=== PATIENT | female | born 1965 | race Caucasian/White ===

== ENCOUNTER 2020-04-03 20:51 | Emergency (ER) | payer OTHER, SELFPAY ==
--- NOTE | 2020-04-03 | ECG_ITS ---
Test Reason : PALPITATIONS Blood Pressure : / mmHG Vent. Rate : 087 BPM Atrial Rate : 087 BPM P-R Int : 152 ms QRS Dur : 096 ms QT Int : 400 ms P-R-T Axes : 059 005 046 degrees QTc Int : 481 ms Sinus rhythm with Fusion complexes Prolonged QT Abnormal ECG No previous ECGs available Referred By: Generic ED Physician Electronically Signed By:Anton Dowling
[2020-04-03 21:16] VITALS: BP 160/81; PULSE 88; RESP 18; TEMP 36.7; O2SAT 94
[2020-04-03 21:19] VITALS: BP 160/81; PULSE 88; RESP 20; TEMP 36.7; O2SAT 94; BMI 38.9
[2020-04-03 21:37] LABS: MANUAL DIFF FLAG NO
[2020-04-03 21:38] LABS: Basophils Absolute Auto 0.1 X10*3/uL (0.0-0.2); Basophils Percent Auto 0.5 % (0-2); Eosinophils Absolute Auto 0.1 X10*3/uL (0.0-0.4); Eosinophils Percent Auto 1.1 % (0-4); Hematocrit 44.4 % (37-47); Hemoglobin 14.9 g/dl (12.0-16.0); Imm Gran Abs Auto 0.02 X10*3/uL (0.00-0.03); Imm Gran Pct Auto 0.2 % (0.0-0.4); Lymphocytes Percent Auto 30.5 % (20-40); Mean Corpuscular HGB Conc 33.6 g/dl (31.0-35.0); Mean Corpuscular Volume 89.5 fL (80-98); Mean Platelet Volume 9.7 fL (9.4-12.3); Monocytes Absolute Auto 0.6 X10*3/uL (0.1-1.2); Monocytes Percent Auto 6.2 % (2-11); Neutrophils Absolute Auto 6.1 X10*3/uL (2.0-8.3); Neutrophils Percent Auto 61.5 % (45-73); Platelet Count 360 X10*3/uL (160-400); Red Blood Count 4.96 X10*6/uL (4.20-5.50); Red Cell Distribution Width 13.4 % (11.0-16.0); White Blood Count 9.8 X10*3/uL (4.8-10.8)
[2020-04-03 21:56] LABS: Anion Gap 15 (12-20); Blood Urea Nitrogen 15 mg/dL (9-16); Calcium 9.5 mg/dL (8.4-10.2); Carbon Dioxide 27 mmol/L (22-29); Chloride 100 mmol/L (96-108); Creatinine Clr Calc Pharmacy 77.9; Estimated Glomerular Filt Rate 57; Glucose Random 131 mg/dL (60-115); Sodium 139 mmol/L (135-145)
[2020-04-03 22:04] LABS: Troponin-I High Sensitivity < 3.5 ng/L (<3.5-17.0)
--- NOTE | 2020-04-04 00:09 | ED.ARRPALP ---
HPI - Arrhythmia/Palpitations General Chief Complaint: Arrhythmia/Palpitations Stated Complaint: Diff breathing Time Seen by Provider: 04/04/20 00:09 Source: patient Limitations: no limitations History of Present Illness HPI narrative: Patient with increased stress anxiety secondary to her stepfather about 20 days ago with poor sleep felt palpitation for sleep extra heartbeats patient denied any chest pain or shortness of breath MD complaint: skipped beats Severity: mild Context: occurred during rest Related Data Previous Rx's Medication Instructions Recorded lorazepam [Ativan] 1 mg PO BEDTIME PRN #10 tab 04/04/20 Allergies Allergy/AdvReac Type Severity Reaction Status Date / Time No Known Allergies Allergy Unverified 11/04/19 16:04 zolmitriptan [Zomig] AdvReac Unknown palpitation Verified 03/03/17 00:00 s Review of Systems Review of Systems: Constitutional : No Weight loss, No Fever, No Chills ENT/Mouth : No sore throat, No Rhinorrhea Eyes: No Eye Pain, No Swelling Cardiovascular : No Chest Pain, no palpitations Respiratory : No Cough, No Sputum, no shortness of breath Gastrointestinal : no Nausea, No Vomiting, No Diarrhea, No abdominal Pain, no black stools Genitourinary : No Dysuria, No Urinary Frequency Musculoskeletal : No joint pain, No Myalgias, No Joint Swelling Skin : No Skin Lesions, No rash Neuro : No Weakness, No Numbness, No Dizziness, No Headache Psych :++ Anxiety/Panic, ++ Depression Heme/Lymph: No Bruising, No Lymphadenopathy Endocrine : No Polyuria, No Polydipsia All other systems reviewed and are negative [facility] Past Medical History Medical History Asthma HLD (hyperlipidemia) HTN (hypertension) Surgical History Hx of cholecystectomy Social History Social History Advance Directives: No Physical Exam Vital Signs: Vital Signs: Last Vital Signs Temp 98.0 F 04/03/20 21:19 Pulse 88 04/03/20 21:19 Resp 20 04/03/20 21:19 BP 160/81 H 04/03/20 21:19 Pulse Ox 94 04/03/20 21:19 Body Mass Index 38.9 Appearance: Alert. Oriented X3. No acute distress. Anxious Eyes: Pupils equal, round and reactive to light. ENT: Pharynx normal. Neck: Normal inspection. Neck supple. CVS: Normal heart rate and rhythm. Pulses normal. Respiratory: No respiratory distress. Breath sounds normal. Abdomen: Soft and nontender. Bowel sounds are present, no mass palpable, no CVA tenderness Skin: Skin warm and dry. Normal skin color. Normal skin turgor. Extremities: No lower extremity edema. Neuro: Oriented X 3. No motor deficit. No sensory deficit. 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 Result diagrams: 04/03/20 21:30 04/03/20 21:30 Labs: Lab Results 04/03/20 04/03/20 04/03/20 Range/Units 21:29 21:30 21:30 WBC 9.8 (4.8-10.8) X10*3/uL RBC 4.96 (4.20-5.50) X10*6/uL Hgb 14.9 (12.0-16.0) g/dl Hct 44.4 (37-47) % MCV 89.5 (80-98) fL MCH 30.0 (27.0-33.0) pg MCHC 33.6 (31.0-35.0) g/dl RDW 13.4 (11.0-16.0) % Plt Count 360 (160-400) X10*3/uL MPV 9.7 (9.4-12.3) fL Immature Gran % (Auto) 0.2 (0.0-0.4) % Neut % (Auto) 61.5 (45-73) % Lymph % (Auto) 30.5 (20-40) % [place] % (Auto) 6.2 (2-11) % Eos % (Auto) 1.1 (0-4) % Baso % (Auto) 0.5 (0-2) % Lymph # (Auto) 3.0 (1.2-4.9) X10*3/uL [place] # (Auto) 0.6 (0.1-1.2) X10*3/uL Eos # (Auto) 0.1 (0.0-0.4) X10*3/uL Baso # (Auto) 0.1 (0.0-0.2) X10*3/uL Abs Immat Gran (auto) 0.02 (0.00-0.03) X10*3/uL Absolute Neuts (auto) 6.1 (2.0-8.3) X10*3/uL Absolute Nucleated RBC 0.000 (0.0-0.012) X10*3/uL Nucleated RBC % (auto) 0.0 (0.0-0.2) /100WBC Sodium 139 (135-145) mmol/L Potassium 3.0 L (3.3-5.1) mmol/L Chloride 100 (96-108) mmol/L Carbon Dioxide 27 (22-29) mmol/L Anion Gap 15 (12-20) BUN 15 (9-16) mg/dL Creatinine 1.01 (0.5-1.4) mg/dL Estim Creat Clear Calc 77.9 Estimated GFR 57 Random Glucose 131 H (60-115) mg/dL Calcium 9.5 (8.4-10.2) mg/dL Troponin I High Sens < 3.5 (<3.5-17.0) ng/L ECG Data Attestation: I personally reviewed and interpreted this ECG as follows: Interpretation: Normal sinus rhythm heart rate 87, occasional unifocal PVC normal axis no acute ST T wave changes no acute ischemia Discharge Plan Discharge Clinical Impression: Grief reaction Patient Disposition: Home, Self-Care Instructions: Grief and Loss (ED) Additional Instructions: Rest at home take medication for sleep and anxiety. Follow with PCP if not better your potassium was slightly low, have extra bananas/orange juice Prescriptions: New lorazepam [Ativan] 1 mg tablet 1 mg PO BEDTIME PRN (Reason: anxiety) Qty: 10 RF: 0
[2020-04-04] MEDS: Potassium Bicarbonate/Cit AC 25 MEQ TABLET.EFF PO (00:38)
[2020-04-04] MEDS: LORazepam 1 MG TABLET PO (00:39)
[2020-04-04 00:57] VITALS: PULSE 76
== END 2020-04-04 01:01 | disposition home or self-care (01) ==
PROVIDERS: Emergency Provider Internal Medicine; PCP Internal Medicine
DX: F43.23 Adjustment disorder with mixed anxiety and depressed mood (principal); Z72.89 Other problems related to lifestyle; Z63.4 Disappearance and death of family member; I10 Essential (primary) hypertension
CPT/HCPCS: 36415; 80048; 84484; 85025; 93005; 99283; 99284

== ENCOUNTER 2020-07-06 20:59 | Emergency (ER) | payer OTHER, SELFPAY ==
--- NOTE | ~2020-07-06 | CT_ITS ---
EXAMINATION: CT ABDOMEN AND PELVIS WITHOUT CONTRAST CLINICAL INFORMATION: Right flank pain COMPARISON: 12/28/2008 TECHNIQUE: Multidetector volumetric imaging was performed from the superior aspect of the liver through the pubic symphysis. Sagittal and coronal reformatted images were obtained on the technologist's workstation. This CT examination was performed using dose optimization techniques as appropriate, variously including the following: *Automated exposure control *Adjustment of mA and/or kV according to patient size (this includes techniques or standardized protocols for targeted exams where dose is matched to indication/reason for exam; i.e. extremities or head) *Use of iterative reconstruction technique DLP: 916 mGy-cm FINDINGS: LUNG BASES: The visualized lung bases are unremarkable. LIVER, GALLBLADDER, AND BILIARY TREE: The liver demonstrates hypoattenuation consistent with steatosis. No biliary ductal dilatation is present. Patient is status post cholecystectomy. PANCREAS: There is partial fatty atrophy of the pancreas. SPLEEN: Unremarkable. ADRENAL GLANDS: Unremarkable. KIDNEYS AND URETERS: No hydronephrosis or ureteral calculus bilaterally. There is a left lower pole 5 mm calculus. BLADDER: Unremarkable. GASTROINTESTINAL TRACT: The small and large bowel are unremarkable. The appendix is unremarkable. No free fluid or free air is seen. ABDOMINAL WALL: No significant hernia is appreciated. LYMPH NODES: Normal. VASCULAR: Unremarkable. PELVIC VISCERA: Unremarkable. OSSEOUS STRUCTURES: Degenerative changes are noted in the spine. CT/CT abdomen pelvis wo con IMPRESSION: 1. No acute findings identified in the abdomen/pelvis. Left lower pole renal calculus measuring 5 mm. 2. Hepatic steatosis.
[2020-07-06 21:04] VITALS: BP 150/68; PULSE 85; RESP 18; TEMP 36.3; O2SAT 97; BMI 41.2
[2020-07-07] VITALS: BP 142/72; PULSE 78; RESP 18; O2SAT 99
[2020-07-07 00:06] LABS: MANUAL DIFF FLAG NO
[2020-07-07 00:11] LABS: Basophils Percent Auto 0.3 % (0-2); Eosinophils Absolute Auto 0.1 X10*3/uL (0.0-0.4); Eosinophils Percent Auto 0.9 % (0-4); Hemoglobin 14.5 g/dl (12.0-16.0); Imm Gran Abs Auto 0.01 X10*3/uL (0.00-0.03); Imm Gran Pct Auto 0.1 % (0.0-0.4); Lymphocytes Percent Auto 37.5 % (20-40); Mean Corpuscular HGB Conc 33.7 g/dl (31.0-35.0); Mean Corpuscular Hemoglobin 30.6 pg (27.0-33.0); Mean Corpuscular Volume 90.7 fL (80-98); Mean Platelet Volume 9.7 fL (9.4-12.3); Monocytes Absolute Auto 0.7 X10*3/uL (0.1-1.2); Monocytes Percent Auto 6.4 % (2-11); Neutrophils Absolute Auto 5.9 X10*3/uL (2.0-8.3); Neutrophils Percent Auto 54.8 % (45-73); Platelet Count 341 X10*3/uL (160-400); Red Blood Count 4.74 X10*6/uL (4.20-5.50); Red Cell Distribution Width 13.3 % (11.0-16.0); White Blood Count 10.8 X10*3/uL (4.8-10.8)
--- NOTE | 2020-07-07 00:11 | ED_ITS ---
HPI - General Adult General Chief complaint: General Medical Stated complaint: FLANK PAIN Time Seen by Provider: 07/06/20 23:02 Source: patient Mode of arrival: ambulatory History of Present Illness HPI narrative: This is a 55-year-old female with history of renal colic who presents with 3 weeks of right flank pain with radiation into the anterior abdominal wall without associated fever, chills but reports nausea without vomiting and denies any diarrhea or urinary pain/burning/frequency. Patient sources that she is status post cholecystectomy and has not sought advice from her PCP. Related Data Previous Rx's Medication Instructions Recorded lorazepam [Ativan] 1 mg PO BEDTIME PRN #10 tab 04/04/20 Allergies Allergy/AdvReac Type Severity Reaction Status Date / Time No Known Allergies Allergy Unverified 11/04/19 16:04 zolmitriptan [Zomig] AdvReac Unknown palpitation Verified 03/03/17 00:00 s Review of Systems Review of Systems: Pertinent positives and negatives as stated in HPI 10 point review of systems is otherwise negative. PMFSH Past Medical History Source: nursing notes reviewed Medical History Asthma HLD (hyperlipidemia) HTN (hypertension) Surgical History Hx of cholecystectomy Social History Social History Alcohol intake: never Advance Directives: No Advance Directives Information Provided: Yes Physical Exam Vital Signs: Vital Signs: Last Vital Signs Temp 97.4 F 07/06/20 21:04 Pulse 85 07/06/20 21:04 Resp 18 07/06/20 21:04 BP 150/68 H 07/06/20 21:04 Pulse Ox 97 07/06/20 21:04 Body Mass Index 41.2 VITAL SIGNS: Reviewed. GENERAL: Well developed, well nourished, in no acute distress. HEAD: Normocephalic/atraumatic EYES: PERRLA, EOMI EARS: Ext canals without abnormality NOSE: Nares patent bilateral OROPHARYNX: no oral lesions noted, posterior pharynx clear NECK: Supple, no adenopathy LUNGS: Normal breath sounds. No adventitious sounds or accessory muscle use. SpO2<97> CARDIOVASCULAR: Regular rate and rhythm without noted murmurs ABDOMEN: Soft, mild tenderness over right abdomen without rebound, non-distended with bowel sounds. NEUROLOGIC: Alert and oriented x 4. Course Course Course Narrative: This is a 55-year-old female with history and clinical presentation atypical for renal colic and suspect likely back/musculoskeletal in nature. Will evaluate for possible hernia/right-sided diverticulitis although felt to be less likely. Review of all investigations is negative for any acute findings and all results and findings were discussed with patient at bedside. She was informed that there is a stone within the kidney itself but that this is unlikely to be causing the discomfort that she is experiencing and more likely that this may be an acute on chronic back pain that she is experiencing. She was encouraged to follow up with her primary care provider for further discussion. Medical Decision Making Lab Data Result diagrams: 07/06/20 23:59 07/06/20 23:59 Labs: Lab Results 07/06/20 07/06/20 07/07/20 Range/Units 23:59 23:59 00:00 WBC 10.8 (4.8-10.8) X10*3/uL RBC 4.74 (4.20-5.50) X10*6/uL Hgb 14.5 (12.0-16.0) g/dl Hct 43.0 (37-47) % MCV 90.7 (80-98) fL MCH 30.6 (27.0-33.0) pg MCHC 33.7 (31.0-35.0) g/dl RDW 13.3 (11.0-16.0) % Plt Count 341 (160-400) X10*3/uL MPV 9.7 (9.4-12.3) fL Immature Gran % (Auto) 0.1 (0.0-0.4) % Neut % (Auto) 54.8 (45-73) % Lymph % (Auto) 37.5 (20-40) % [place] % (Auto) 6.4 (2-11) % Eos % (Auto) 0.9 (0-4) % Baso % (Auto) 0.3 (0-2) % Lymph # (Auto) 4.0 (1.2-4.9) X10*3/uL [place] # (Auto) 0.7 (0.1-1.2) X10*3/uL Eos # (Auto) 0.1 (0.0-0.4) X10*3/uL Baso # (Auto) 0.0 (0.0-0.2) X10*3/uL Abs Immat Gran (auto) 0.01 (0.00-0.03) X10*3/uL Absolute Neuts (auto) 5.9 (2.0-8.3) X10*3/uL Absolute Nucleated RBC 0.000 (0.0-0.012) X10*3/uL Nucleated RBC % (auto) 0.0 (0.0-0.2) /100WBC Sodium 138 (135-145) mmol/L Potassium 3.0 L (3.3-5.1) mmol/L Chloride 98 (96-108) mmol/L Carbon Dioxide 26 (22-29) mmol/L Anion Gap 17 (12-20) BUN 16 (9-16) mg/dL Creatinine 0.99 (0.5-1.4) mg/dL Estim Creat Clear Calc 78.4 Estimated GFR 58 Random Glucose 134 H (60-115) mg/dL Calcium 9.7 (8.4-10.2) mg/dL Total Bilirubin 0.8 (0.0-1.0) mg/dL AST 39 H (5-31) U/L ALT 54 H (0-31) U/L Alkaline Phosphatase 94 (39-117) U/L Total Protein 7.6 (6.5-8.0) g/dL Albumin 4.4 (3.5-5.0) g/dL Urine Color YELLOW Urine Appearance CLEAR Urine pH 6.0 (5.0-8.0) Ur Specific [place] 1.010 (1.005-1.025) Urine Protein NEG (NEG-TRACE) MG/DL Urine Glucose (UA) NEG (NEG) MG/DL Urine Ketones NEG (NEG) MG/DL Urine Blood NEG (NEG) Urine Nitrite NEG (NEG) Ur Leukocyte Esterase NEG (NEG) Discharge Plan Discharge Clinical Impression: Hypokalemia, Back pain Patient Disposition: Home, Self-Care Instructions: Back Pain (ED), Lower Back Exercises (ED), Hypokalemia (ED) Additional Instructions: 1. Tylenol 1000 mg, orally, every 6 hours as needed for pain control. Do not exceed 4000 mg within 24 hours. 2. Lidocaine patch, these are available [id number] at every [facility], apply to area of maximal pain as directed on the outside packaging. 3. Please follow-up with your primary care provider in the next 2-3 days for re- evaluation. Return to the ER for any acute worsening of symptoms. Prescriptions: No Action lorazepam [Ativan] 1 mg tablet 1 mg PO BEDTIME PRN (Reason: anxiety) Qty: 10 RF: 0 Referrals: Leela Abraham MD [Primary Care Provider] - 2 days (Re-evaluation after seen in the ER for right flank pain, workup was negative but there was a noted stone within the right kidney.)
[2020-07-07 00:35] LABS: Alanine Aminotransferase 54 U/L (0-31); Albumin Level 4.4 g/dL (3.5-5.0); Alkaline Phosphatase 94 U/L (39-117); Anion Gap 17 (12-20); Aspartate Amino Transferase 39 U/L (5-31); Bilirubin Total 0.8 mg/dL (0.0-1.0); Blood Urea Nitrogen 16 mg/dL (9-16); Calcium 9.7 mg/dL (8.4-10.2); Carbon Dioxide 26 mmol/L (22-29); Chloride 98 mmol/L (96-108); Creatinine Clr Calc Pharmacy 78.4; Estimated Glomerular Filt Rate 58; Glucose Random 134 mg/dL (60-115); Sodium 138 mmol/L (135-145); Total Protein 7.6 g/dL (6.5-8.0)
[2020-07-07] MEDS: Potassium Chloride ER 20 MEQ TAB.ER.PRT 60 MEQ PO (01:37)
--- NOTE | 2020-07-07 01:50 | PC.NURSE ---
Called lab regarding urine specimen that was sent earlier this shift. Urine specimen order was not amended prior to sending. This RN amended order in system, urine specimen now being processed by lab. Dr.Brazille lara.
[2020-07-07 02:00] VITALS: BP 137/82; PULSE 82; RESP 18; TEMP 36.6; O2SAT 98
[2020-07-07 02:15] LABS: Glucose Urine UA NEG (NEG); Leukocyte Esterase Urine NEG (NEG); Nitrite Urine NEG (NEG); Urine Blood NEG (NEG); Urine Ketones NEG (NEG); Urine Protein NEG (NEG-TRACE)
[2020-07-07 02:19] LABS: Appearance Urine CLEAR; Color Urine YELLOW
== END 2020-07-07 03:28 | disposition home or self-care (01) ==
PROVIDERS: Emergency Provider Student in an Organized Health Care Education/Training Program; PCP Internal Medicine
DX: E87.6 Hypokalemia (principal); M54.5 Low back pain; N20.0 Calculus of kidney; I10 Essential (primary) hypertension; E78.5 Hyperlipidemia, unspecified; Z90.49 Acquired absence of other specified parts of digestive tract
CPT/HCPCS: 36415; 74176; 80053; 81003; 85025; 99284

== ENCOUNTER → 2022-02-15 09:54 | Outpatient (BNVA) | payer OTHER, SELFPAY | PROVIDERS: Visit Provider Nurse Practitioner Family | DX: R53.1 Weakness (principal) ==

== ENCOUNTER → 2022-05-16 09:28 | Outpatient (BNVA) | payer OTHER, SELFPAY | PROVIDERS: Visit Provider Nurse Practitioner Family | DX: Z13.89 Encounter for screening for other disorder (principal) ==

== ENCOUNTER → 2022-08-01 09:29 | Outpatient (BNVA) | payer OTHER, SELFPAY | PROVIDERS: Visit Provider Psychiatry & Neurology Neurology ==

== ENCOUNTER 2022-08-08 10:22 | Outpatient (REF) | payer OTHER, SELFPAY ==
--- NOTE | 2022-08-08 10:25 | EMG_ITS ---
FINDINGS: Left tibial and peroneal motor and sensory studies were performed. Left superficial peroneal and sural sensory studies were performed. Tibial H-reflex was obtained and paraspinal muscles were tested with a needle. 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 MD SARI Salamanca/LAZARO / [id number]
== END 2022-08-08 10:23 | disposition home or self-care (01) ==
LOC: HO.NEURO 10:22
PROVIDERS: Visit Provider Psychiatry & Neurology Neurology
DX: R20.0 Anesthesia of skin (principal); R20.2 Paresthesia of skin; R53.1 Weakness
CPT/HCPCS: 95886; 95909

== ENCOUNTER 2022-08-11 17:56 | Emergency (ER) | payer OTHER, SELFPAY ==
--- NOTE | ~2022-08-11 | US_ITS ---
EXAMINATION: US VENOUS ULTRASOUND WITH DOPPLER LOWER EXTREMITY, RIGHT CLINICAL INFORMATION: Right lower extremity pain COMPARISON: None available. TECHNIQUE: Ultrasound of the deep veins is performed from the hip to the calf with compression sonography and color and pulse Doppler assessment. Spectral analysis with color-flow imaging is performed. FINDINGS: There is normal venous compression and respiratory variation and augmented flow. The visualized common femoral vein, superficial femoral vein, profunda femoral vein, popliteal vein, and the trifurcation region shows no evidence of deep venous thrombosis. There is no significant popliteal fossa cyst. The left common femoral vein appears normal. If the patient's symptoms persist, followup ultrasound in 5 days 7 days might be of value to exclude proximal propagation from a non-visualized calf vein. US/US venous duplex LE RT IMPRESSION: No DVT demonstrated in the right lower extremity.
[2022-08-11 18:52] VITALS: BP 175/75; PULSE 82; RESP 16; TEMP 36.7; O2SAT 95; BMI 38.7
[2022-08-11 19:15] LABS: Hematocrit 41.4 % (37.0-47.0); Hemoglobin 13.7 g/dl (12.0-16.0); Mean Corpuscular HGB Conc 33.1 g/dl (31.0-35.0); Mean Corpuscular Hemoglobin 31.1 pg (27.0-33.0); Mean Corpuscular Volume 93.9 fL (80.0-98.0); Mean Platelet Volume 9.8 fL (9.4-12.3); Platelet Count 328 X10*3/uL (160-400); Red Blood Count 4.41 X10*6/uL (4.20-5.50); Red Cell Distribution Width 13.1 % (11.0-16.0); White Blood Count 11.2 X10*3/uL (4.8-10.8)
[2022-08-11 19:16] LABS: Appearance Urine Clear; Color Urine Yellow; Glucose Urine UA Negative (Negative); Leukocyte Esterase Urine Negative (Negative); Nitrite Urine Negative (Negative); PH >= 9.0 (5.0-9.0); Urine Blood Negative (Negative); Urine Ketones Negative (Negative); Urine Protein Negative (Neg-Trace)
[2022-08-11 19:41] LABS: Alanine Aminotransferase 39 U/L (0-31); Albumin Level 4.1 g/dL (3.5-5.0); Alkaline Phosphatase 99 U/L (39-117); Anion Gap 15 (12-20); Aspartate Amino Transferase 26 U/L (5-31); Bilirubin Total 0.5 mg/dL (0.0-1.0); Blood Urea Nitrogen 11 mg/dL (9-16); Calcium 10.1 mg/dL (8.4-10.2); Carbon Dioxide 21 mmol/L (22-29); Chloride 109 mmol/L (96-108); Estimated Glomerular Filt Rate > 60; Glucose Random 110 mg/dL (60-115); Potassium 3.7 mmol/L (3.3-5.1); Sodium 141 mmol/L (135-145); Total Protein 7.6 g/dL (6.5-8.0)
[2022-08-11 19:45] LABS: B Type Natriuretic Peptide 37 pg/mL (<100)
[2022-08-11 21:27] VITALS: BP 140/72; PULSE 71; RESP 17; TEMP 36.6; O2SAT 92
--- NOTE | 2022-08-11 22:47 | ED_ITS ---
HPI - Extremity Problem General Chief complaint: Extremity Problem Stated complaint: Feet swollen Time Seen by Provider: 08/11/22 21:25 History of Present Illness HPI Narrative: Patient is a 57-year-old female presents today with having bilateral leg swelling worse on the right side. Symptoms been ongoing for 2 days. Denies any chest pain. Denies any diaphoresis. Patient is from home. No fever no chills. No coughing no congestion or upper respiratory symptoms. No diaphoresis. No history of being on control pills. No hormone replacement. No travel history. No trauma to leg. Ambulates with normal gait. Pain is worse over the right calf area. No chest pain or shortness of breath no diaphoresis Related Data Home Medications Medication Instructions Recorded Confirmed albuterol sulfate 90 mcg/actuation 2 puff inhalation QID PRN cough 02/15/22 08/01/22 aerosol inhaler bupropion HCl 300 mg 24 hr tablet, 300 mg PO QAM 02/15/22 08/01/22 extended release cholecalciferol (vitamin D3) 100 100 mcg PO DAILY 02/15/22 08/01/22 mcg (4,000 unit) capsule cranberry 400 mg capsule 400 mg PO DAILY 02/15/22 08/01/22 lorazepam 0.5 mg tablet 0.5 mg PO DAILY PRN 02/15/22 08/01/22 losartan 50 mg tablet 50 mg PO DAILY 02/15/22 08/01/22 magnesium oxide 500 mg capsule 500 mg PO DAILY 02/15/22 08/01/22 potassium chloride 10 mEq 20 meq PO BEDTIME 02/15/22 08/01/22 tablet,extended release(part/cryst) (Klor-Con M) potassium chloride 20 mEq 20 meq PO DAILY 02/15/22 08/01/22 tablet,extended release pravastatin 20 mg tablet 20 mg PO DAILY 02/15/22 08/01/22 riboflavin (vitamin B2) 400 mg 400 mg PO DAILY 02/15/22 08/01/22 tablet triamcinolone acetonide 0.025 % appl topical BID 02/15/22 08/01/22 topical cream Previous Rx's Medication Instructions Recorded lorazepam 1 mg tablet (Ativan) 1 mg PO BEDTIME PRN anxiety #10 04/04/20 tabs erenumab-aooe 140 mg/mL 140 mg subcut .monthly 30 days #1 02/15/22 subcutaneous auto-injector mL (Aimovig Autoinjector) verapamil 120 mg 24 hr 120 mg PO DAILY #90 caps 05/07/22 capsule,extended release qorstxksdo-rmrirexbavaaf-kfgfncjg 1 cap PO Q4-6H PRN pain 30 days 05/16/22 50 mg-300 mg-40 mg capsule #20 caps (Fioricet) acetazolamide 125 mg tablet 125 mg PO TID 30 days #90 tabs 05/20/22 Allergies Allergy/AdvReac Type Severity Reaction Status Date / Time house dust mite Allergy Mild Sneezing Verified 08/11/22 18:52 zolmitriptan [Zomig] AdvReac Unknown palpitation Verified 08/11/22 18:52 s Review of Systems Review of Systems: no fever no chills Yes all other systems are reviewed and are negative [facility] Past Medical History Attestation statement: The following information was validated with the patient. Medical History Asthma HLD (hyperlipidemia) HTN (hypertension) Numbness and tingling of both feet Surgical History Hx of cholecystectomy Family History Family History Brother Hypokalemia Social History Social History Alcohol intake: never Patient Tobacco Use Status: Never used Tobacco Smoked in Last 30 Days: No Use of substances other than those prescribed or required for medical reasons: No Advance Directives: No Advance Directives Information Provided: No Physical Exam Vital Signs: Vital Signs: Last Vital Signs Temp 98.4 F 08/11/22 22:58 Pulse 68 08/11/22 22:58 Resp 18 08/11/22 22:58 BP 122/55 L 08/11/22 22:58 Pulse Ox 99 08/11/22 22:58 O2 Del Method Room Air 08/11/22 22:58 BMI result Body Mass Index 38.7 Appearance: Alert. Oriented X3. No acute distress. Eyes: Pupils equal, round and reactive to light. ENT: Pharynx normal. Neck: Normal inspection. Neck supple. No lymph nodes noted. No crepitus CVS: Normal heart rate and rhythm. Pulses normal. Normal S1 and S2 Respiratory: No respiratory distress. Breath sounds normal. No Wheezing. No rales Abdomen: Soft and nontender. No rigidity. No distention. good BS x4 Skin: Skin warm and dry. Normal skin color. Normal skin turgor. Extremities: No lower extremity edema. Neurovascular intact to all extremities. No Lacerations. No Rash Neuro: Oriented X 3. No motor deficit. No sensory deficit. Moving all extermities. No slurred speech Medical Decision Making Medical Decision Making [facility] Narrative: Patient is 57 years old complaining of leg swelling. Doppler of the lower extremity in the right side was negative for any acute evidence of DVT. Patient's BMP is normal. No evidence for congestive heart failure. Patient's liver profile was normal no evidence for liver failure will have patient follow- up on an outpatient basis. Elevate as much as possible. In stable condition. Differential Diagnosis DVT, pedal edema, congestive heart failure, liver disease Lab Data [facility] Lab Attestation statement: I reviewed the patient's lab results. 08/11/22 19:09 08/11/22 19:09 Labs: Lab Results 08/11/22 08/11/22 08/11/22 Range/Units 19:09 19:09 19:09 WBC 11.2 H (4.8-10.8) X10*3/uL RBC 4.41 (4.20-5.50) X10*6/uL Hgb 13.7 (12.0-16.0) g/dl Hct 41.4 (37.0-47.0) % MCV 93.9 (80.0-98.0) fL MCH 31.1 (27.0-33.0) pg MCHC 33.1 (31.0-35.0) g/dl RDW 13.1 (11.0-16.0) % Plt Count 328 (160-400) X10*3/uL MPV 9.8 (9.4-12.3) fL Absolute Nucleated RBC 0.000 (0.0-0.012) X10*3/uL Nucleated RBC % (auto) 0.0 (0.0-0.2) /100WBC Sodium 141 (135-145) mmol/L Potassium 3.7 D (3.3-5.1) mmol/L Chloride 109 H (96-108) mmol/L Carbon Dioxide 21 L (22-29) mmol/L Anion Gap 15 (12-20) BUN 11 (9-16) mg/dL Creatinine 0.86 (0.5-1.4) mg/dL Estim Creat Clear Calc 88.0 Estimated GFR > 60 Random Glucose 110 (60-115) mg/dL Calcium 10.1 (8.4-10.2) mg/dL Total Bilirubin 0.5 (0.0-1.0) mg/dL AST 26 (5-31) U/L ALT 39 H (0-31) U/L Alkaline Phosphatase 99 (39-117) U/L B-Natriuretic Peptide 37 (<100) pg/mL Total Protein 7.6 (6.5-8.0) g/dL Albumin 4.1 (3.5-5.0) g/dL Urine Color Urine Appearance Urine pH (5.0-9.0) Ur Specific [place] (1.005-1.025) Urine Protein (Neg-Trace) mg/dL Urine Glucose (UA) (Negative) mg/dL Urine Ketones (Negative) mg/dL Urine Blood (Negative) Urine Nitrite (Negative) Ur Leukocyte Esterase (Negative) 08/11/22 Range/Units 19:09 WBC (4.8-10.8) X10*3/uL RBC (4.20-5.50) X10*6/uL Hgb (12.0-16.0) g/dl Hct (37.0-47.0) % MCV (80.0-98.0) fL MCH (27.0-33.0) pg MCHC (31.0-35.0) g/dl RDW (11.0-16.0) % Plt Count (160-400) X10*3/uL MPV (9.4-12.3) fL Absolute Nucleated RBC (0.0-0.012) X10*3/uL Nucleated RBC % (auto) (0.0-0.2) /100WBC Sodium (135-145) mmol/L Potassium (3.3-5.1) mmol/L Chloride (96-108) mmol/L Carbon Dioxide (22-29) mmol/L Anion Gap (12-20) BUN (9-16) mg/dL Creatinine (0.5-1.4) mg/dL Estim Creat Clear Calc Estimated GFR Random Glucose (60-115) mg/dL Calcium (8.4-10.2) mg/dL Total Bilirubin (0.0-1.0) mg/dL AST (5-31) U/L ALT (0-31) U/L Alkaline Phosphatase (39-117) U/L B-Natriuretic Peptide (<100) pg/mL Total Protein (6.5-8.0) g/dL Albumin (3.5-5.0) g/dL Urine Color Yellow Urine Appearance Clear Urine pH >= 9.0 (5.0-9.0) Ur Specific [place] 1.010 (1.005-1.025) Urine Protein Negative (Neg-Trace) mg/dL Urine Glucose (UA) Negative (Negative) mg/dL Urine Ketones Negative (Negative) mg/dL Urine Blood Negative (Negative) Urine Nitrite Negative (Negative) Ur Leukocyte Esterase Negative (Negative) Radiology Impression Discussion of test interpretation with radiology: I have reviewed the radiologist's reading. Discharge Plan Discharge Clinical Impression: Pedal edema Patient Disposition: Home, Self-Care Instructions: Leg Edema (ED) Prescriptions: No Action verapamil 120 mg capsule,ext rel. pellets 24 hr 120 mg PO DAILY Qty: 90 3RF acetazolamide 125 mg tablet 125 mg PO TID 30 Days Qty: 90 3RF lorazepam [Ativan] 1 mg tablet 1 mg PO BEDTIME PRN (Reason: anxiety) Qty: 10 0RF ooaovjuxhz-oavpkcouhjypb-vgdn [Fioricet] 50-300-40 mg capsule 1 cap PO Q4-6H PRN (Reason: pain) 30 Days Qty: 20 3RF Rx Instructions: max 4 caps per day or 8 caps per week albuterol sulfate 90 mcg/actuation HFA aerosol inhaler 2 puff inhalation QID PRN (Reason: cough) potassium chloride 20 mEq tablet extended release 20 meq PO DAILY potassium chloride [Klor-Con M10] 10 mEq tablet,ER particles/crystals 20 meq PO BEDTIME losartan 50 mg tablet 50 mg PO DAILY bupropion HCl 300 mg tablet extended release 24 hr 300 mg PO QAM pravastatin 20 mg tablet 20 mg PO DAILY lorazepam 0.5 mg tablet 0.5 mg PO DAILY PRN triamcinolone acetonide 0.025 % cream topical BID riboflavin (vitamin B2) 400 mg tablet 400 mg PO DAILY magnesium oxide 500 mg capsule 500 mg PO DAILY cranberry 400 mg capsule 400 mg PO DAILY Rx Instructions: administer with a meal cholecalciferol (vitamin D3) 100 mcg (4,000 unit) capsule 100 mcg PO DAILY Aimovig Autoinjector 140 mg/mL auto-injector 140 mg subcut .monthly 30 Days Qty: 1 12RF Referrals: Liyah Dalton MD [Primary Care Provider] - 08/13/22
[2022-08-11 22:58] VITALS: BP 122/55; PULSE 68; RESP 18; TEMP 36.9; O2SAT 99
--- NOTE | 2022-08-11 23:59 | PC.NURSE ---
stable and clear to go home patient vitals are stable at this time patient will receive all paperwork
== END 2022-08-12 00:05 | disposition home or self-care (01) ==
PROVIDERS: Emergency Provider Emergency Medicine Emergency Medical Services; PCP Internal Medicine
DX: R60.0 Localized edema (principal); R06.02 Shortness of breath; Z79.899 Other long term (current) drug therapy
CPT/HCPCS: 36415; 80053; 81003; 83880; 85027; 93971; 99284

== ENCOUNTER 2022-09-07 08:34 | Outpatient (REF) | payer OTHER, SELFPAY ==
[2022-09-07 09:13] LABS: MANUAL DIFF FLAG NO
[2022-09-07 09:19] LABS: Basophils Absolute Auto 0.1 X10*3/uL (0.0-0.2); Basophils Percent Auto 0.5 % (0-2); Eosinophils Absolute Auto 0.2 X10*3/uL (0.0-0.4); Hematocrit 40.5 % (37.0-47.0); Hemoglobin 13.1 g/dl (12.0-16.0); Imm Gran Abs Auto 0.03 X10*3/uL (0.00-0.03); Imm Gran Pct Auto 0.3 % (0.0-0.4); Lymphocytes Absolute Auto 2.9 X10*3/uL (1.2-4.9); Lymphocytes Percent Auto 30.9 % (20-40); Mean Corpuscular HGB Conc 32.3 g/dl (31.0-35.0); Mean Corpuscular Hemoglobin 30.7 pg (27.0-33.0); Mean Corpuscular Volume 94.8 fL (80.0-98.0); Monocytes Absolute Auto 0.5 X10*3/uL (0.1-1.2); Monocytes Percent Auto 5.1 % (2-11); Neutrophils Absolute Auto 5.8 x10*3/uL (2.0-8.3); Neutrophils Percent Auto 61.2 % (45-73); Platelet Count 320 X10*3/uL (160-400); Red Blood Count 4.27 X10*6/uL (4.20-5.50); Red Cell Distribution Width 13.2 % (11.0-16.0); White Blood Count 9.4 X10*3/uL (4.8-10.8)
[2022-09-07 09:56] LABS: Erythrocyte Sedimentation Rate 21 MM/HR (0-20)
[2022-09-07 10:30] LABS: Alanine Aminotransferase 45 U/L (0-31); Alkaline Phosphatase 97 U/L (39-117); Anion Gap 12 (12-20); Aspartate Amino Transferase 22 U/L (5-31); Bilirubin Total 0.3 mg/dL (0.0-1.0); Blood Urea Nitrogen 17 mg/dL (9-16); Calcium 9.5 mg/dL (8.4-10.2); Carbon Dioxide 22 mmol/L (22-29); Chloride 112 mmol/L (96-108); Estimated Glomerular Filt Rate > 60; Glucose Random 149 mg/dL (60-115); Potassium 4.1 mmol/L (3.3-5.1); Sodium 142 mmol/L (135-145); Total Protein 7.2 g/dL (6.5-8.0)
[2022-09-07 10:46] LABS: TSH reflex Free T4 1.94 uIU/mL (0.32-4.0)
[2022-09-07 10:58] LABS: Folate 8.4 ng/mL (> or = 4.0); Vitamin B12 426 pg/mL (200-900)
[2022-09-10 05:48] LABS: Lyme Abs Screen <0.90 index
[2022-09-10 16:37] LABS: Homocysteine 11.9 umol/L (<10.4)
[2022-09-11 13:23] LABS: Methylmalonic Acid 133 nmol/L (87-318)
[2022-09-11 15:03] LABS: Prot Elec - Albumin 3.8 g/dL (3.8-4.8); Prot Elec - Alpha1 0.3 g/dL (0.2-0.3); Prot Elec - Alpha2 0.8 g/dL (0.5-0.9); Prot Elec - Beta 1 0.6 g/dL (0.4-0.6); Prot Elec - Beta 2 0.6 g/dL (0.2-0.5); Prot Elec - Total Protein 7.1 g/dL (6.1-8.1)
[2022-09-12 12:48] LABS: Vitamin D 25-OH, D2 <4 ng/mL; Vitamin D 25-OH, D3 38 ng/mL; Vitamin D 25-OH, Total 38 ng/mL (30-100)
[2022-09-13 14:54] LABS: Anti Nuclear Antibody Screen NEGATIVE (NEGATIVE)
[2022-09-13 17:48] LABS: Vitamin B6 6.1 ng/mL (2.1-21.7)
== END 2022-09-07 08:35 | disposition home or self-care (01) ==
LOC: HO.LAB 08:34
PROVIDERS: Visit Provider Psychiatry & Neurology Neurology
DX: G62.9 Polyneuropathy, unspecified (principal)
CPT/HCPCS: 36415; 80053; 82306; 82607; 82746; 83090; 83921; 84165; 84181; 84207; 84443; 85025; 85652; 86038; 86617; 86618

== ENCOUNTER 2022-12-30 13:12 | Outpatient (AMB) | payer OTHER, SELFPAY ==
[2022-12-30 13:15] VITALS: BP 130/68; PULSE 67; O2SAT 97
--- NOTE | 2022-12-30 13:15 | HO.NEPHOV_ITS ---
HPI HPI Comments History of Present Illness Details Luba is a middle-aged woman with history of chronic hypokalemia. She is on potassium supplementation. She has monitoring of potassium at home. She She has periods of weakness. She underwent EMG which shows sensory neuropathy. She is waiting for Neurology evaluation. She underwent genetic studies which was not suggestive of periodic paralysis In August 2022 she developed bilateral leg edema. She was in the emergency room. No evidence of DVT. Cardiac hepatic and renal function were normal. The swelling subsided without any intervention/diuretics. [facility] Medical History (Updated 09/02/22 @ 13:57 by Arlin Walker MD) Neuropathy Numbness and tingling of both feet Asthma HLD (hyperlipidemia) HTN (hypertension) Surgical History Hx of cholecystectomy Family History Brother Hypokalemia Social History Alcohol intake: never Patient Tobacco Use Status: Never used Tobacco Vital Signs 12/30/22 13:15 Height 5 ft 6 in BP 130/68 Blood Pressure Location Lt brachial Position Sitting Pulse 67 Pulse Source Pulse Oximeter Pulse Oximetry (%) 97 Physical Exam Vital Signs: Last Vital Signs Pulse 67 12/30/22 13:15 BP 130/68 12/30/22 13:15 Pulse Ox 97 12/30/22 13:15 Const General: comfortable Nutritional Appearance: well nourished Orientation/consciousness: patient oriented x3 HEENT Head: No normal to inspection Mouth: moist mucous membranes Neck Neck: Yes supple and Yes no JVD Resp Auscultation: clear to auscultation bilaterally, no rales and rub present Cardio Jugular venous distension: no JVD Palpation: no palpable S3 and no palpable S4 Heart sounds: no rubs GI Palpation (GI): Soft to palpation and nontender Percussion: No Fluid wave present General: Yes no CVA tenderness Back/Spine/Pelvis Back: no CVA tenderness Skin General skin exam: no rashes or lesions noted Neuro General: patient oriented x3 Extrem General: Yes no pedal edema and No clubbing Results Reviewed Results Reviewed: All results reviewed Assessment & Plan Assessment & Plan (1) Hypokalemia: Comment: ? hypokalemia periodic paralysis Code(s): E87.6 - Hypokalemia Plan Middle-aged woman with chronic hypokalemia requiring supplementation. She has clinical features suggestive of hypokalemic periodic paralysis. Genetic studies did not support this. Goal is to maintain potassium more than 4 millimoles. Continue current Moe supplementation monitor periodically. Neuropathy Follow-up with Neurology Orders: Orders Calcium Today E87.6 - Hypokalemia, G62.9 - Polyneuropathy, unspecified Electrolytes Today E87.6 - Hypokalemia, G62.9 - Polyneuropathy, unspecified Blood Urea Nitrogen Today E87.6 - Hypokalemia, G62.9 - Polyneuropathy, unspecified Creatinine Today E87.6 - Hypokalemia, G62.9 - Polyneuropathy, unspecified Coding Level of Care Code Est Pt Level 4 (31712) Diagnoses Hypokalemia E87.6
== END 2022-12-30 13:39 | disposition home or self-care (01) ==
PROVIDERS: PCP Internal Medicine; Visit Provider Internal Medicine Hypertension Specialist
DX: E87.6 Hypokalemia (principal)
CPT/HCPCS: 99214

== ENCOUNTER → 2022-12-30 13:12 | Outpatient (BNVA) | payer OTHER, SELFPAY | PROVIDERS: PCP Internal Medicine; Visit Provider Internal Medicine Hypertension Specialist ==

== ENCOUNTER 2023-01-17 14:55 | Outpatient (AMB) | payer OTHER, SELFPAY ==
[2023-01-17 14:57] VITALS: BP 130/82; PULSE 80; O2SAT 97; BMI 35.8
--- NOTE | 2023-01-17 14:57 | MHC.OFFVIS ---
Intake Vital Signs 01/17/23 14:57 Height 5 ft 6 in Weight 222 lb BMI 35.8 BP 130/82 Blood Pressure Location Lt brachial Position Sitting Pulse 80 Pulse Source Pulse Oximeter Pulse Oximetry (%) 97 Oxygen Delivery Method Room Air Intake Visit Reasons: follow up/ Confirmed Intake Note: Pt presents to the office today for a follow up for migraines. Pt states her migraines have been doing better. Allergies house dust mite Allergy (Mild, Verified 01/17/23 14:59) Sneezing zolmitriptan [Zomig] Adverse Reaction (Unknown, Verified 01/17/23 14:59) palpitations HPI HPI Comments History of Present Illness Details 57-yr-old female presents for f/u visit for bilateral legs neuropathy, headache and sleep apnea. Today is her Aimovig injection due day. Pt reports she might have moderate headache once a week, it is much less intense, duration is also short. Resting in the darkroom and using fioricet helps to relieve the headache. She is on Diamox 125 BID. Cold weather, waking triggers weakness, numbness and tingling in her upper and lower extremities. She gets muscle cramping, and can't walk as far as she use to. She is having difficulty standing up dafter long distance walking, her legs tighten up. 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 Lab result reviewed. ESR 21 and homocysteine 11.9. TSH 1.94 and B12 426. She is trying to make sure she eats and drinks enough. She reports she is compliant w/ CPAP. She feels she is sleeping better with CPAP. The CPAP compliance is not available. [facility] Medical History Neuropathy Numbness and tingling of both feet Asthma HLD (hyperlipidemia) HTN (hypertension) Surgical History Hx of cholecystectomy Family History Brother Hypokalemia Social History Alcohol intake: never Patient Tobacco Use Status: Never used Tobacco Review of Systems Const All systems reviewed & are unremarkable except as noted in HPI and below Physical Exam Vital Signs: Last Vital Signs Pulse 80 01/17/23 14:57 BP 130/82 01/17/23 14:57 Pulse Ox 97 01/17/23 14:57 Oxygen Delivery Method Room Air 01/17/23 14:57 BMI result Body Mass Index 35.8 Const General: cooperative and no acute distress Orientation/consciousness: patient oriented x3 HEENT Head: Yes normocephalic Resp Effort & Inspection: normal respiratory effort and able to speak in complete sentences Neuro Other: mild weakness of hand grasp General: patient oriented x3, gait normal and CN's II-XI intact bilaterally Cognition (Neuro): normal cognition Deep tendon reflexes (DTR's): Right triceps reflex intensity grade: 2+, Left triceps reflex intensity grade: 2+, Rt Biceps (C5, C6): 2+, Left biceps reflex intensity grade: 2+, Right brachioradialis reflex intensity grade: 2+, Left brachioradialis reflex intensity grade: 2+, Right patellar reflex intensity grade: 2+ and Left patellar reflex intensity grade: 2+ Coordination: [id number] test normal Psych Appearance: grossly normal Mental Status: mental status grossly normal Speech and movement: Normal speech and movement present Affect: normal affect Attitude: cooperative Thought process: Normal thought process present Thought content: Normal thought content present Insight: Good insight present (Psych) Judgement: Good judgement present (Psych) Assessment & Plan Assessment & Plan (1) Weakness: Comment: ? musculoskeletal , ? periodic paralysis ? deconditioning Code(s): R53.1 - Weakness (2) Migraine without aura: Code(s): G43.009 - Migraine without aura, not intractable, without status migrainosus (3) Mild obstructive sleep apnea: Comment: AHI 12.8/hr, RI 15/hr, average O2 94% with O2 surekha 83% Code(s): G47.33 - Obstructive sleep apnea (adult) (pediatric) Plan Continue aimovig 120 mg q monthly. Pt does not want to do physical therapy at this time. CPAP compliance stressed, advised patient to visit [facility] and check her CPAP for compliance. Advised patient to try Nirvive for numbness and tingling of upper and lower extremities. Coding Level of Care Code Est Pt Level 4 (01718) Diagnoses Weakness R53.1 Migraine without aura G43.009 Mild obstructive sleep apnea G47.33
== END 2023-01-17 15:26 | disposition home or self-care (01) ==
PROVIDERS: PCP Internal Medicine; Visit Provider Nurse Practitioner Family
DX: R53.1 Weakness (principal); G43.009 Migraine without aura, not intractable, without status migrainosus; G47.33 Obstructive sleep apnea (adult) (pediatric)
CPT/HCPCS: 99214

== ENCOUNTER → 2023-01-17 14:55 | Outpatient (BNVA) | payer OTHER, SELFPAY | PROVIDERS: PCP Internal Medicine; Visit Provider Nurse Practitioner Family ==

== ENCOUNTER 2023-06-27 06:20 | Outpatient (REF) | payer OTHER, SELFPAY ==
[2023-06-27 08:09] LABS: Anion Gap 17 (12-20); Blood Urea Nitrogen 14 mg/dL (9-16); Calcium 9.9 mg/dL (8.4-10.2); Carbon Dioxide 20 mmol/L (22-29); Chloride 108 mmol/L (96-108); Estimated Glomerular Filt Rate 54; Potassium 3.6 mmol/L (3.3-5.1); Sodium 141 mmol/L (135-145)
== END 2023-06-27 06:21 | disposition home or self-care (01) ==
LOC: HO.LAB 06:20
PROVIDERS: Visit Provider Internal Medicine Hypertension Specialist
DX: G62.9 Polyneuropathy, unspecified (principal); E87.6 Hypokalemia
CPT/HCPCS: 36415; 80051; 82310; 82565; 84520

== ENCOUNTER 2023-06-30 13:27 | Outpatient (AMB) | payer OTHER, SELFPAY ==
[2023-06-30 13:30] VITALS: BP 124/82; PULSE 73; O2SAT 99; BMI 37.1
--- NOTE | 2023-06-30 13:30 | HO.NEPHOV ---
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 She is on potassium supplementation. She has monitoring of potassium at home. She has periods of weakness. She underwent EMG which shows sensory neuropathy. She is waiting for Neurology evaluation. She underwent genetic studies which was not suggestive of periodic paralysis In August 2022 she developed bilateral leg edema. She was in the emergency room. No evidence of DVT. Cardiac hepatic and renal function were normal. The swelling subsided without any intervention/diuretics. 06/30/23 Doing well K has been stable 1 episode of leg edema- resolved spontaneously in a day. No dyspnea PFSH Medical History (Updated 06/30/23 @ 13:48 by Carmine Walker MD) Hypokalemia Neuropathy Numbness and tingling of both feet Asthma HLD (hyperlipidemia) HTN (hypertension) Surgical History Hx of cholecystectomy Family History Brother Hypokalemia Social History Alcohol intake: never Patient Tobacco Use Status: Never used Tobacco Physical Exam Vital Signs: Last Vital Signs Pulse 73 06/30/23 13:30 BP 124/82 06/30/23 13:30 Pulse Ox 99 06/30/23 13:30 Oxygen Delivery Method Room Air 06/30/23 13:30 BMI result Body Mass Index 37.1 Results Reviewed Nephrology Results: Hgb 13.1 g/dl (12.0-16.0) 09/07/22 WBC 9.4 X10*3/uL (4.8-10.8) 09/07/22 Plt Count 320 X10*3/uL (160-400) 09/07/22 Sodium 141 mmol/L (135-145) 06/27/23 Potassium 3.6 mmol/L (3.3-5.1) 06/27/23 Chloride 108 mmol/L (96-108) 06/27/23 Carbon Dioxide 20 mmol/L (22-29) L 06/27/23 BUN 14 mg/dL (9-16) 06/27/23 Creatinine 1.04 mg/dL (0.5-1.4) 06/27/23 Calcium 9.9 mg/dL (8.4-10.2) 06/27/23 Urine Protein Negative mg/dL (Neg-Trace) 08/11/22 Assessment & Plan Assessment & Plan (1) Hypokalemia: Comment: ? hypokalemia periodic paralysis Code(s): E87.6 - Hypokalemia Category: Medical (2) Chronic hypokalemia: Code(s): E87.6 - Hypokalemia Category: Medical Plan Middle-aged woman with chronic hypokalemia requiring supplementation. She has clinical features suggestive of hypokalemic periodic paralysis. Genetic studies did not support this. Goal is to maintain potassium more than 4 millimoles. Continue current Potassium supplementation and monitor periodically. Neuropathy Follow-up with Neurology Orders: Orders Basic Metabolic Panel 2 Months E87.6 - Hypokalemia Basic Metabolic Panel 1 Month E87.6 - Hypokalemia Basic Metabolic Panel 3 Months E87.6 - Hypokalemia Medications: New potassium chloride ER 20 mEq PO DAILY 90 tabs 3RF Coding Level of Care Code Est Pt Level 4 (47437) Diagnoses Hypokalemia E87.6 Chronic hypokalemia E87.6
== END 2023-06-30 13:47 | disposition home or self-care (01) ==
PROVIDERS: PCP Internal Medicine; Visit Provider Internal Medicine Hypertension Specialist
DX: E87.6 Hypokalemia (principal)
CPT/HCPCS: 99214

== ENCOUNTER → 2023-06-30 13:27 | Outpatient (BNVA) | payer OTHER, SELFPAY | PROVIDERS: PCP Internal Medicine; Visit Provider Internal Medicine Hypertension Specialist ==

== ENCOUNTER 2023-08-15 06:39 | Outpatient (REF) | payer OTHER, SELFPAY ==
[2023-08-15 07:48] LABS: Anion Gap 13 (12-20); Blood Urea Nitrogen 16 mg/dL (9-16); Calcium 9.5 mg/dL (8.4-10.2); Carbon Dioxide 22 mmol/L (22-29); Chloride 111 mmol/L (96-108); Estimated Glomerular Filt Rate 59; Glucose Random 149 mg/dL (60-115); Potassium 3.8 mmol/L (3.3-5.1); Sodium 142 mmol/L (135-145)
== END 2023-08-15 06:40 | disposition home or self-care (01) ==
LOC: HO.LAB 06:39
PROVIDERS: PCP Internal Medicine; Visit Provider Internal Medicine Hypertension Specialist
DX: E87.6 Hypokalemia (principal)
CPT/HCPCS: 36415; 80048

== ENCOUNTER 2023-09-25 06:47 | Outpatient (REF) | payer OTHER, SELFPAY ==
[2023-09-25 08:06] LABS: Anion Gap 12 (12-20); Blood Urea Nitrogen 22 mg/dL (9-16); Calcium 9.4 mg/dL (8.4-10.2); Carbon Dioxide 20 mmol/L (22-29); Chloride 113 mmol/L (96-108); Estimated Glomerular Filt Rate > 60; Glucose Random 139 mg/dL (60-115); Potassium 3.4 mmol/L (3.3-5.1); Sodium 142 mmol/L (135-145)
== END 2023-09-25 06:48 | disposition home or self-care (01) ==
LOC: HO.LAB 06:47
PROVIDERS: PCP Internal Medicine; Visit Provider Internal Medicine Hypertension Specialist
DX: E87.6 Hypokalemia (principal)
CPT/HCPCS: 36415; 80048

== ENCOUNTER 2023-11-06 06:12 | Outpatient (REF) | payer OTHER, SELFPAY ==
[2023-11-06 07:43] LABS: Anion Gap 11 (12-20); Blood Urea Nitrogen 17 mg/dL (9-16); Calcium 9.4 mg/dL (8.4-10.2); Carbon Dioxide 23 mmol/L (22-29); Chloride 112 mmol/L (96-108); Estimated Glomerular Filt Rate > 60; Glucose Random 138 mg/dL (60-115); Potassium 3.6 mmol/L (3.3-5.1); Sodium 142 mmol/L (135-145)
== END 2023-11-06 06:13 | disposition home or self-care (01) ==
LOC: HO.LAB 06:12
PROVIDERS: PCP Internal Medicine; Visit Provider Internal Medicine Hypertension Specialist
DX: E87.6 Hypokalemia (principal)
CPT/HCPCS: 36415; 80048

== ENCOUNTER 2023-12-15 08:27 | Outpatient (AMB) | payer OTHER, SELFPAY ==
[2023-12-15 08:29] VITALS: BP 128/90; PULSE 74; O2SAT 97; BMI 38.8
--- NOTE | 2023-12-15 08:29 | MHC.OFFVIS ---
Vital Signs 12/15/23 08:29 Height 5 ft 6 in Weight 240 lb 4 oz BMI 38.8 BP 128/90 H Blood Pressure Location Lt brachial Position Sitting Pulse 74 Pulse Source Pulse Oximeter Pulse Oximetry (%) 97 Oxygen Delivery Method Room Air Intake Visit Reasons: 6M RENETTA Intake Note: Patient presents for a follow up. ( RENETTA ) Snap Attacher Required: No Allergies house dust mite Allergy (Mild, Verified 12/15/23 08:32) Sneezing zolmitriptan [Zomig] Adverse Reaction (Unknown, Verified 12/15/23 08:32) palpitations Medication List - Last Reconciled 12/15/23 by Arlin Walker MD acetazolamide 125 mg PO BID albuterol sulfate 90 mcg/actuation 2 puffs inhalation QID PRN bupropion HCl XL 300 mg PO QAM frcdzrcbvr-hikdksfyjxnff-iquf 50-300-40 mg (Fioricet) 1 cap PO Q4-6H PRN 90 days cholecalciferol (vitamin D3) 100 mcg PO DAILY cranberry 400 mg PO DAILY erenumab-aooe (Aimovig Autoinjector) 140 mg subcut ONCE 90 days gabapentin 1-3 caps at bedtime orally bedtime; lorazepam 0.5 mg PO DAILY PRN losartan 50 mg PO DAILY magnesium oxide 500 mg PO DAILY potassium chloride ER (Klor-Con M) 10 mEq PO BEDTIME potassium chloride ER 20 mEq PO DAILY pravastatin 20 mg PO DAILY triamcinolone acetonide 0.025% appl topical BID HPI Comments Details: 58 year old female presents for f/u visit for bilalteral leg pain and neuropathy. She is on Aimovig x 1 monthly and Fiorect 50-300. She continues to have migraines 4-5 x a month, but they are less intense. Resting in a darkroom and using fioricet helps to relieve them. Cold weather, walking, noise, smells, and light sensitivity continue to be triggers and make her nauseous, however she does not vomit. She gets muscle cramps and burning leg pain at night and wakes up several times, sometimes she goes back to sleep and others she works. She continues to take magnesium and her migraines are now less intense now with shorter durations. Her vision continues to be blurry during the migraine episodes with floaters, however mindful meditation with music helps. She denies neck pain, reports she was sick for one week where she was unable to use her CPAP machine for that period. She uses her CPAP 6/7 days per week, sleeps 7-8 hours on a good night. CPAP compliance report usage 74/90 days = 82%, used >4 hours per night. Pressure is 10-13, Leaks less then 1.0, AHI 0.3, with good compliance. [facility] Medical History Hypokalemia Neuropathy Numbness and tingling of both feet Asthma HLD (hyperlipidemia) HTN (hypertension) Surgical History Hx of cholecystectomy Family History Brother Hypokalemia Social History Alcohol intake: never Patient Tobacco Use Status: Never used Tobacco Review of Systems Const Reports as per HPI Neuro Details: General Cooperative, pleasant. Physical Exam Vital Signs: Last Vital Signs Pulse 74 12/15/23 08:29 BP 128/90 H 12/15/23 08:29 Pulse Ox 97 12/15/23 08:29 Oxygen Delivery Method Room Air 12/15/23 08:29 BMI result Body Mass Index 38.8 Const General: cooperative Nutritional Appearance: obese Orientation/consciousness: patient oriented x3 Resp Effort & Inspection: able to speak in complete sentences Neuro General: patient oriented x3 Cognition (Neuro): normal cognition Gait exam (Neuro): Normal gait present Extrem General: Yes full ROM Psych Appearance: grossly normal Speech and movement: Normal speech and movement present Affect: normal affect Assessment & Plan Assessment & Plan (1) Numbness and tingling of both feet: Code(s): R20.0 - Anesthesia of skin; R20.2 - Paresthesia of skin Category: Medical Plan: Gabapentin 100 mg PO daily at bedtime; 90 days 3 refills. Plan Mild Sleep Apnea Continue using CPAP as instructed if the mask is not tolerable call the [facility] and ask for a new mask. Migraines Continue with monthly Aimovig injections Medications: New gabapentin 1-3 caps at bedtime orally bedtime; 90 caps 3RF Coding Level of Care Code Est Pt Level 4 (10481) Diagnoses Numbness and tingling of both feet R20.0; R20.2
== END 2023-12-15 11:09 | disposition home or self-care (01) ==
PROVIDERS: Absent Provider Psychiatry & Neurology Neurology; PCP Internal Medicine; Visit Provider Psychiatry & Neurology Neurology
DX: R20.0 Anesthesia of skin (principal); R20.2 Paresthesia of skin
CPT/HCPCS: 99214

== ENCOUNTER → 2023-12-15 08:27 | Outpatient (BNVA) | payer OTHER, SELFPAY | PROVIDERS: Absent Provider Psychiatry & Neurology Neurology; PCP Internal Medicine; Visit Provider Psychiatry & Neurology Neurology ==

== ENCOUNTER 2023-12-16 06:53 | Outpatient (REF) | payer OTHER, SELFPAY ==
[2023-12-16 08:24] LABS: Anion Gap 12 (12-20); Blood Urea Nitrogen 20 mg/dL (9-16); Calcium 9.4 mg/dL (8.4-10.2); Carbon Dioxide 23 mmol/L (22-29); Chloride 112 mmol/L (96-108); Estimated Glomerular Filt Rate 58; Glucose Random 164 mg/dL (60-115); Sodium 143 mmol/L (135-145)
== END 2023-12-16 06:54 | disposition home or self-care (01) ==
LOC: HO.LAB 06:53
PROVIDERS: PCP Internal Medicine; Visit Provider Internal Medicine Hypertension Specialist
DX: E87.6 Hypokalemia (principal)
CPT/HCPCS: 36415; 80048

== ENCOUNTER 2023-12-29 09:43 | Outpatient (AMB) | payer OTHER, SELFPAY ==
[2023-12-29 09:48] VITALS: BP 122/70; PULSE 80; O2SAT 95; BMI 38.7
--- NOTE | 2023-12-29 09:48 | HO.NEPHOV ---
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 Accompanied by: Spouse Allergies house dust mite Allergy (Mild, Verified 12/29/23 09:49) Sneezing zolmitriptan [Zomig] Adverse Reaction (Unknown, Verified 12/29/23 09:49) palpitations Medication List - Last Reconciled 12/29/23 by Carmine Walker MD acetazolamide 125 mg PO BID albuterol sulfate 90 mcg/actuation 2 puffs inhalation QID PRN bupropion HCl XL 300 mg PO QAM jxhnnfjwim-ovcjepodnnsxh-xvdy 50-300-40 mg (Fioricet) 1 cap PO Q4-6H PRN 90 days cholecalciferol (vitamin D3) 100 mcg PO DAILY cranberry 400 mg PO DAILY erenumab-aooe (Aimovig Autoinjector) 140 mg subcut ONCE 90 days gabapentin 200 mg PO BEDTIME lorazepam 0.5 mg PO DAILY PRN losartan 50 mg PO DAILY magnesium oxide 500 mg PO DAILY potassium chloride ER (Klor-Con M) 10 mEq PO BEDTIME potassium chloride ER 20 mEq PO DAILY pravastatin 20 mg PO DAILY triamcinolone acetonide 0.025% appl topical BID HPI Comments Details: Luba is a middle-aged woman with history of chronic hypokalemia. She is on potassium supplementation. She has monitoring of potassium at home. She has periods of weakness. She underwent EMG which shows sensory neuropathy. She is waiting for Neurology evaluation. She underwent genetic studies which was not suggestive of periodic paralysis In August 2022 she developed bilateral leg edema. She was in the emergency room. No evidence of DVT. Cardiac hepatic and renal function were normal. The swelling subsided without any intervention/diuretics. 06/30/23 Doing well K has been stable 1 episode of leg edema- resolved spontaneously in a day. No dyspnea 12/29/23 c/o Palpitations c/o cramps Now on Gabapentin for neuropathy HOme K readings are acceptable. lowest was 3.4 Mostly around 4 PFSH Medical History Hypokalemia Neuropathy Numbness and tingling of both feet Asthma HLD (hyperlipidemia) HTN (hypertension) Surgical History Hx of cholecystectomy Family History Brother Hypokalemia Social History Alcohol intake: never Patient Tobacco Use Status: Never used Tobacco Physical Exam Vital Signs: Last Vital Signs Pulse 80 12/29/23 09:48 BP 122/70 12/29/23 09:48 Pulse Ox 95 12/29/23 09:48 Oxygen Delivery Method Room Air 12/29/23 09:48 BMI result Body Mass Index 38.7 Const General: comfortable; No acute distress Orientation/consciousness: patient oriented x3 Eyes General: appearance normal, both eyes and all related structures Visual Pablo: normal visual pablo by confrontation Neck Neck: Yes supple and Yes no JVD Resp Effort & Inspection: normal respiratory effort and respiratory effort not decreased Auscultation: rhonchi Cardio Palpation: no palpable S3 and no palpable S4 Heart sounds: no rubs GI Inspection: Yes normal to inspection Palpation (GI): Soft to palpation Percussion: Yes normal to percussion Auscultation: normal bowel sounds General: Yes no CVA tenderness Back/Spine/Pelvis Back: no CVA tenderness Skin General skin exam: no petechiae and no purpura Neuro General: patient oriented x3 and no focal motor deficits Extrem General: No clubbing and No edema Results Reviewed Nephrology Results: Sodium 143 mmol/L (135-145) 12/16/23 Potassium 4.0 mmol/L (3.3-5.1) 12/16/23 Chloride 112 mmol/L (96-108) H 12/16/23 Carbon Dioxide 23 mmol/L (22-29) 12/16/23 BUN 20 mg/dL (9-16) H 12/16/23 Creatinine 0.98 mg/dL (0.5-1.4) 12/16/23 Calcium 9.4 mg/dL (8.4-10.2) 12/16/23 Assessment & Plan Assessment & Plan (1) Hypokalemia: Comment: ? hypokalemia periodic paralysis Code(s): E87.6 - Hypokalemia Category: Medical (2) Chronic hypokalemia: Code(s): E87.6 - Hypokalemia Category: Medical (3) Palpitations: Code(s): R00.2 - Palpitations Category: Medical Plan Middle-aged woman with chronic hypokalemia requiring supplementation. She has clinical features suggestive of hypokalemic periodic paralysis. Genetic studies did not support this. Goal is to maintain potassium more than 4 millimoles. Continue current Potassium supplementation and monitor periodically. Neuropathy Follow-up with Neurology Palpitations buddy setting of nypokalemia Refer to cardiology Orders: Orders Magnesium 2 Weeks Carmine Walker MD E87.6 - Hypokalemia, R00.2 - Palpitations Phosphorus 2 Weeks Carmine Walker MD E87.6 - Hypokalemia, R00.2 - Palpitations Magnesium Today Carmine Walker MD E87.6 - Hypokalemia Basic Metabolic Panel 01/26/24 Carmine Walker MD E87.6 - Hypokalemia Basic Metabolic Panel 02/23/24 Carmine Walker MD E87.6 - Hypokalemia Basic Metabolic Panel 03/22/24 Carmine Walker MD E87.6 - Hypokalemia Basic Metabolic Panel 05/17/24 Carmine Walker MD E87.6 - Hypokalemia Basic Metabolic Panel 06/14/24 Carmine Walker MD E87.6 - Hypokalemia Basic Metabolic Panel 08/09/24 Carmine Walker MD E87.6 - Hypokalemia Basic Metabolic Panel 11/01/24 Carmine Walker MD E87.6 - Hypokalemia Basic Metabolic Panel 2 Weeks Carmine Walker MD E87.6 - Hypokalemia, R00.2 - Palpitations Basic Metabolic Panel Today Carmine Walker MD E87.6 - Hypokalemia Basic Metabolic Panel Today Carmine Walker MD E87.6 - Hypokalemia Basic Metabolic Panel 04/19/24 Carmine Walker MD E87.6 - Hypokalemia Basic Metabolic Panel 07/12/24 Carmine Walker MD E87.6 - Hypokalemia Basic Metabolic Panel 09/06/24 Carmine Walker MD E87.6 - Hypokalemia Basic Metabolic Panel 10/04/24 Carmine Walker MD E87.6 - Hypokalemia Referrals Cardiology Referral Carmine Walker MD E87.6 - Hypokalemia, R00.2 - Palpitations Medications: Changed From gabapentin 1-3 caps at bedtime orally bedtime; 90 caps 3RF To gabapentin 200 mg PO BEDTIME Arlin Walker MD Coding Level of Care Code Est Pt Level 4 (40931) Diagnoses Hypokalemia E87.6 Chronic hypokalemia E87.6 Palpitations R00.2
== END 2023-12-29 10:06 | disposition home or self-care (01) ==
PROVIDERS: PCP Internal Medicine; Visit Provider Internal Medicine Hypertension Specialist
DX: E87.6 Hypokalemia (principal); R00.2 Palpitations
CPT/HCPCS: 99214

== ENCOUNTER 2024-01-13 06:16 | Outpatient (REF) | payer OTHER, SELFPAY ==
[2024-01-13 07:46] LABS: Anion Gap 13 (12-20); Blood Urea Nitrogen 14 mg/dL (9-16); Calcium 9.4 mg/dL (8.4-10.2); Carbon Dioxide 23 mmol/L (22-29); Chloride 107 mmol/L (96-108); Estimated Glomerular Filt Rate > 60; Glucose Random 138 mg/dL (60-115); Magnesium 2.4 mg/dL (1.6-2.6); Phosphorus 2.8 mg/dL (2.7-4.5); Potassium 3.8 mmol/L (3.3-5.1); Sodium 139 mmol/L (135-145)
== END 2024-01-13 06:17 | disposition home or self-care (01) ==
LOC: HO.LAB 06:16
PROVIDERS: PCP Internal Medicine; Visit Provider Internal Medicine Hypertension Specialist
DX: R00.2 Palpitations (principal); E87.6 Hypokalemia
CPT/HCPCS: 36415; 80048; 83735; 84100

== ENCOUNTER 2024-03-25 06:48 | Outpatient (REF) | payer OTHER, SELFPAY ==
--- OUTSIDE RECORDS SUMMARY | 2024-03-25 06:51 | XMS_ITS | Clinical Summary ---
Author Organization [facility] [address] [place] [address] [place] [phone] Phone Care Team Providers Care Group Chief Operator Name Role Phone Liyah Estrada MD Primary Care Prov ider Allergies Active Allergy Reactions Criticality Noted Date Comments Nitrofurantoin Monohyd/M-Cryst Headache 10/28/2022 Difficulty breathing Other Runny nose 06/16/2017 Medications Medication Sig Dispensed Refills Start Date End Date Status buPROPion XL (WELLBUTRIN XL) 300 mg 24 hr tablet Take 1 tablet (300 mg total) by mouth 1 (one) time each day in the morning. 09/29/2023 Active pravastatin (PRAVACHOL) 20 mg tablet Take 1 tablet (20 mg total) by mouth 1 (one) time each day. 09/29/2023 Active losartan (COZAAR) 50 mg tablet Take 1 tablet (50 mg total) by mouth 1 (one) time each day. 09/29/2023 Active albuterol HFA (PROAIR HFA ; PROVENTIL HFA ; VENTOLIN HFA) 90 mcg/actuation inhaler Inhale 2 Puffs into the lungs 4 times daily as needed for Cough, Wheezing or Shortness of Breath. 07/15/2023 Active potassium chloride 20 mEq tablet extended release Take 1 tablet by mouth 1 (one) time each day. 10/02/2022 Active potassium chloride (Klor-Con 10) 10 mEq CR tablet TAKE 1 TABLET BY MOUTH ONCE DAILY IN THE EVENING. DO NOT CRUSH OR CHEW 04/22/2022 Active acetaZOLAMIDE (DIAMOX) 125 mg tablet Take 1 tablet (125 mg total) by mouth 2 (two) times a day. Active omeprazole (PriLOSEC) [address] capsule Take 1 capsule (20 mg total) by mouth every other day. Active triamcinolone (KENALOG) 0.025 % cream Apply sparingly to affected area twice daily. 07/30/2021 Active butalbital-acetaminop hen-caffeine (FIORICET, ESGIC) 50-325-40 mg per tablet Take 1 tablet by mouth 2 times daily as needed for Pain for up to 10 days. 12/25/2020 Active erenumab-aooe (Aimovig Autoinjector) 140 mg/mL injection INJECT 1 ML (140MG) ONCE A MONTH 12/05/2018 Active cholecalciferol (VITAMIN D-3) 50 mcg (2,000 unit) capsule Take 2 capsules (4,000 Units total) by mouth 1 (one) time each day. 11/09/2018 Active cetirizine (ZyrTEC) 10 mg tablet Take 1 tablet (10 mg total) by mouth 1 (one) time each day. 11/05/2018 Active magnesium oxide (MAG-OX) 400 mg (241.3 elemental magnesium) tablet 05/29/2017 Active Active Problems Problem Noted Date Diagnosed Date Class 2 severe obesity due t o excess calories with serious comorbidity in adult 01/21/2024 Anxiety 04/06/2020 Vitamin D deficiency 04/06/2020 Postmenopausal bleeding 07/25/2016 Overview (01/21/2024): Dr. Tran Aldana - US and EMBx, benign. Planning to establish care with our MANAGER RECRUITMENT. Mild intermittent asthma without complication Lumbar disc herniation with radiculopathy 2014 Overview (01/21/2024): L5 disc herniation Right-sided low back pain with right-sided sciat ica 09/06/2014 Fatty liver disease, nonalcoholic 11/15/2013 Migraine 09/13/2013 Hyperlipemia 05/20/2013 Primary hypertension 08/06/2012 Depression 03/30/2012 GERD (gastroesophageal reflux disease) 3 Kidney stone 03/30/2012 Immunizations Name Administration Dates Next Due Moderna (age 6mo & older) Bi valivan, COVID-19, 0.5 mL or 0.25 mL dosage 04/12/2022 PPD Test 01/14/2018 Tdap Tetanus diptheria acell ular pertussis (Boostrix; Adacel) 7yo and older 08/26/2012 Zoster recombinant (Shingrix) 19yo and older 01/2024 Surgical History Surgery Date Site/Laterality Comments CHOLECYSTECTOMY 2002 PROCEDURE: HISTORICAL CHOLECYSTECTOMY ESOPHAGOGASTRODUODENOSCOPY 09/07/13 PROCEDURE: [place] ESOPHAGOGASTRODUODENOSCOPY TRANSORAL DIAGNOSTIC; COMMENT: normal COLONOSCOPY 09/07/13 PROCEDURE: HISTORICAL COLONOSCOPY; COMMENT: adenomas; repeat in 5 yrs BACK SURGERY 2014 PROCEDURE: HISTORICAL BACK SURGERY; COMMENT: Low back shave; Dr. Prieto Medical History Medical History Date Comments Depression 03/30/2012 DX:Depression GERD (gastroesophageal reflux disease) 03/30/2012 DX:GERD (gastroesophageal reflux disease) Hypertension 08/06/2012 DX:Hypertension Hyperlipemia 05/20/2013 DX:Hyperlipemia History of colonic polyps 11/15/2013 DX:His tory of colonic polyps Fatty liver disease, nonalcoholic 11/15/2013 DX:Fatty liver disease, nonalcoholic Lumbago 09/06/2014 DX:Lumbago Lumbar disc herniation with radiculopathy 09/07/2014 DX:Lumbar disc herniation wi th radiculopathy; COMMENT: L5 disc herniation Family History Medical History Relation Name Comments Other: Muscle Brother 1 intermittently paralyzed from it Other: hypokalemic periodic paralysis Brother 1 Lung cancer Brother 2 metastatic to b one, , nonsmoker Bipolar disorder Daughter 1 Catrina Hyperlipidemia Daughter 1 Catrina Hypertension Daughter 1 Catrina : 04/15/1982 Obesity Daughter 1 Catrina Other: PTSD Daughter 1 Catrina Bipolar disorder Daughter 2 Jessica : 990 Obesity Daughter 2 Jessica Heart attack Father No Known Problems Maternal Grandfather Other: Ruptured Bowel Maternal Grandmother gangrene Hypertension Mother Multiple myeloma Mother remission f or 1 year Other: DJD Mother Heart attack Paternal Grandfather No Known Problems Paternal Grandmother Depression Son Oliver : 05/01/1990 Other: Diverticulitis Son Oliver Other: Skin CA Uncle 1 Prostate cancer Uncle 1 Lung cancer Uncle 2 smoker Breast cancer Neg Hx Colon cancer Neg Hx Ovarian cancer Neg Hx Relation Name Status Comments Brother 1 Alive Brother 2 Daughter 1 Catrina Alive Daughter 2 Jessica Alive Father (Age 62) Maternal Grandfather Maternal Grandmother Mother Alive Paternal Grandfather Paternal Grandmother Son Oliver Alive Uncle 1 Uncle 2 Social History Tobacco Use Types Packs/Day Years Used Date Smoking Tobacco: Never Smokeless Tobacco: Never Alcohol Use Standard Drinks/Week Comments No 0 (1 standard drink = 0.6 oz pur e alcohol) Sex and Gender Information Value Date Recorded Sex Assigned at Not on file Gender Identity Not on file Sexual Orientation Not on file Job Start Date Occupation Industry Not on file Not on file Not on file Obstetrics History Last Filed Vital Signs Vital Sign Reading Time Taken Comments Blood Pressure 128/67 09/29/2023 9:49 AM EDT Pulse 67 09/29/2023 9:49 AM EDT Temperature - - Respiratory Rate - - Oxygen Saturation - - Inhaled Oxygen Concentration - - Weight 106 kg (233 lb 6.4 oz) 09/29/2023 9:49 AM EDT Height 167.6 cm (5' 6 ) 09/29/2023 9:49 AM EDT Body Mass Index 37.67 09/29/2023 9:49 AM EDT Plan of Treatment Upcoming Encounters Date Type Department Care Team (Late st Contact Info) Description 04/05/2024 9:00 AM EST Office Visit Adult Medicine [facility] - [address] [phone] Liyah Estrada MD [address] [place] [phone] 11/15/2024 10:30 AM EDT Appointment Radiology Department - [address] [phone] Health Maintenance Due Date Last Done Comments Pneumococcal Vaccine: Pediatrics (0 to 5 Years) and At-Risk Patients (6 to 64 Years) (1 of 2 - PCV) [birth year]1969 Depression Screening 01/26/2022 HIV Screening 01/26/2022 Social Influencers of Health Screening 01/26/2022 DTaP,Tdap,and Td Vaccines (2 - Td or Tdap) 08/26/2022 08/26/2012 RSV Immunization Patients 60+ Years Old (1 - Risk 60-74 years 1-dose series) 2023 COVID-19 Vaccine ( season) 2023 04/12/2022, 02/13/2021, 06/10/2020, Additional history exists Influenza Vaccine (#1) 2023 Zoster Vaccines (2 of 2) 11/24/2023 09/29/2023 Colorectal Cancer Screening: Colonoscopy 04/12/2024 04/12/2019 Hypertension/CHF/CAD Annual BMP Blood Test 09/28/2024 09/29/2023, 09/29/2023 Breast Cancer Screening 10/26/2025 10/27/19, 10/27/2023, 07/28/2021, Additional history exists Cervical Cancer Screening: HPV 01/17/2027 01/17/2022 Cholesterol Screening (Lipid Panel) 09/28/2028 09/29/2023, 09/29/2023 Hepatitis C Screening Completed 07/05/2013 HIB Vaccines Aged Out No longer eligi ble based on patient's age to complete this topic HPV Vaccines Aged Out No longer eligi ble based on patient's age to complete this topic Hepatitis A Vaccines Aged Out No long er eligible based on patient's age to complete this topic Hepatitis B Vaccines Aged Out No long er eligible based on patient's age to complete this topic IPV Vaccines Aged Out No longer eligi ble based on patient's age to complete this topic MMR Vaccines Aged Out No longer eligi ble based on patient's age to complete this topic Meningococcal ACWY Vaccine Aged Out N o longer eligible based on patient's age to complete this topic RSV Immunization Patients Under 20 months Aged Out No longer eligible based on patient's age to complete this topic Varicella Vaccines Aged Out No longer eligible based on patient's age to complete this topic Procedures Procedure Name Priority Date/Time Associated Diagnosis Comments SCREENING MAMMOGRAPHY BI 2-VIEW BREAST INC CAD Routine 10/27/2023 11:24 AM EDT Encounter for screening mammogram for malignant neoplasm of breast ANNUAL BMP BLOOD TEST Routine 09/29/2023 LIPID PANEL Routine 09/29/2023 HPV Routine 01/17/2022 COLONOSCOPY Routine 04/12/2019 HEPATITIS C SCREENING Routine 07/05/2013 from Last 3 Months or Most Recently Relevant to Health Maintenance Results * SCREENING MAMMOGRAPHY BI 2-VIEW BREAST INC CAD (10/27/2023 11:24 AM EDT) Anatomical Region Laterality Modality Radiographic Brittni ging 09/02/2023 7:49 AM EDT Narrative 10/27/2023 2:34 PM EDT This is a summary report. The complete report is available in the patient's medical record. If you cannot access the medical record, please contact the sending organization for a detailed fax or copy. Full field digital screening tomosynthesis mammography, reviewed with CAD and compared to previous. The breasts are composed of fatty and fibroglandular tissue. ??No suspicious mass, architectural distortion or suspicious calcifications are identified. IMPRESSION: : No mammographic evidence of malignancy. BIRADS 1-Negative; N. 5 year breast cancer risk assessment 1.0 % Lifetime breast cancer risk assessment 5.3 % Breast cancer risk category Low (<15%) Procedure Note Michelle Horner MD - 12/03/2023 This is a summary report. The complete report is available in thepatient's medical record. If you cannot access the medical record, pleasecontact the sending organization for a detailed fax or copy. Full field digital screening tomosynthesis mammography, reviewed with CADand compared to previous. The breasts are composed of fatty andfibroglandular tissue. No suspicious mass, architectural distortion orsuspicious calcifications are identified. IMPRESSION: : No mammographic evidence of malignancy. BIRADS 1-Negative; N. 5 year breast cancer risk assessment 1.0 % Lifetime breast cancer risk assessment 5.3 % Breast cancer risk category Low (<15%) Steffi ESTRADA IMG XR PROCEDURES * Annual BMP Blood Test (09/29/2023) Annual BMP Blood Test Abstracted Historical Provider MD JULIA BADILLO E * (ABNORMAL) Lipid panel (09/29/2023) [facility] LDL/HDL Ratio 4 0 - 4 Triglycerides 147 0 - 150 mg/dL Cholesterol 192 0 - 200 mg/dL HDL 50 40 mg/dL LDL Cholesterol 113(A) 0 - 100 mg/dL Blood Venous blood specimen / Unknown Historical Provider LAB BLOOD ORDERAB [facility] Cervical Cancer Screening: HPV (01/17/2022) [facility] Cervical Cancer Screening: HPV Abstracted, Negative Historical Provider [facility] * Colonoscopy (04/12/2019) [facility] Colonoscopy Abstracted. No Interpretation Anatomical Region Laterality Modality Other Historical Provider [email or web address] * Hepatitis C Screening (07/05/2013) [facility] Hepatitis C Screening Abstracted Historical Provider [email or web address] from Last 3 Months or Most Recently Relevant to Health Maintenance Care Teams Group Chief Operator Relationship Specialty Start Date End Date Liyah Estrada MD [address] [place] [phone] PCP - General Internal Medicine 12/04/21
--- OUTSIDE RECORDS SUMMARY | 2024-03-25 06:51 | XMS_ITS | Clinical Summary ---
Author Organization [facility] Address [address] [facility] [address] [place] [address] Phone Care Team Providers Care Golf Technician Name Role Phone Cindy Maddox MD Primary Care Provider [phone] Allergies Active Allergy Reactions Criticality Noted Date Comments Andrea Inhibitors Other (see comments) 11/29/2020 Dust Mite Extract Other (see comments) 06/17/19 18 Medications Magnesium 200 MG tablet Take 2 tablets by mouth 1 (one) time each day Active albuterol HFA (PROVENTIL HFA;VENTOLIN HFA) 108 (90 Base) MCG/ACT inhaler Inhale 2 puffs 3 (three) times a day Active omeprazole (PriLOSEC) [address] capsule Take 1 capsule by mouth every other day Active verapamil ER (VERELAN) 120 MG 24 hr capsule Take 1 capsule by mouth 1 (one) time each day 1 Active Cranberry 400 MG tablet Take by mouth Active pravastatin (PRAVACHOL) 20 MG tablet Take 20 mg by mouth 1 (one) time each day Active cholecalciferol (VITAMIN D-3) 25 MCG (1000 UT) capsule Take 1,000 Units by mouth 1 (one) time each day Active biotin 1000 MCG tablet Take 1,000 mcg by mouth 1 (one) time each day Active buPROPion XL (WELLBUTRIN XL) 300 MG 24 hr tablet Take 1 tablet by mouth 1 (one) time each day in the morning 2 Active Aimovig 140 MG/ML solution auto-injector 2 Active losartan (COZAAR) 50 MG tablet Take 1 tablet by mouth 1 (one) time each day 2 Active triamcinolone (KENALOG) 0.025 % cream Apply 0.25 application topically 2 (two) times a day 2 Active LORazepam (ATIVAN) 0.5 MG tablet Take 0.5 mg by mouth if needed 2 Active KLOR-CON 10 MEQ CR tablet TAKE 1 TABLET BY MOUTH ONCE DAILY IN THE EVENING. DO NOT CRUSH OR CHEW 90 tablet 1 3 Active acetaZOLAMIDE (DIAMOX) 125 MG tablet Take 125 mg by mouth in the morning and 125 mg in the evening. Active Active Problems Problem Noted Date Diagnosed Date Stage 3a chronic kidney disease 04/21/2020 Overview (11/29/2020): On 2 determinations Oct 2018 and Mar 2020; repeat test Apr 2020 improved. Pending rpt for Hypertension 08/06/2012 Renal stone 03/30/2012 Resolved Problems Problem Noted Date Diagnosed Date Resolved Date Anxiety 04/06/2020 11/29/2020 Vitamin D deficiency 04/06/2020 021 Postmenopausal bleeding 07/25/201611/17 Overview (11/29/2020): Dr. Tran Aldana - US and EMBx, benign. Planning to establish care with our AGENCY MANAGER. Mild intermittent asthma 07/21/2015 Lumbar disc prolapse with radiculopathy 09/07/2014 11/29/2020 Overview (11/29/2020): L5 disc herniation Lumbago with sciatica 09/06/20142020 History of polyp of colon 11/15/2013 Overview (11/29/2020): Two small T.A. Polyps seen on colonoscopy 2013. Repeat colonoscopy in 5 years. Non-alcoholic fatty liver 11/15/2013 Migraine 09/13/2013 11/29/2020 Hyperlipidemia 05/20/2013 11/29/2020 Depressive disorder 03/30/2012 11/30/19 21 Gastroesophageal reflux disease 03/30/2012 11/29/2020 Immunizations Name Administration Dates Next Due Moderna SARS-COV-2 06/10/2020,05/12/2020 PPD Test 01/14/2018 Tdap 08/26/2012 Family History Medical History Relation Comments Hypertension Child Heart disease Father Cancer Mother myeloma Hypertension Mother Cancer Sibling lung Relation Status Comments Child Father Mother Alive Sibling Social History Tobacco Use Types Packs/Day Years Used Date Smoking Tobacco: Never Smokeless Tobacco: Never Tobacco Cessation:Counseling Given: Not Answered Alcohol Use Standard Drinks/Week Comments No 0 (1 standard drink = 0.6 oz pur e alcohol) Comments Unknown Sex and Gender Information Value Date Recorded Sex Assigned at Not on file Legal Sex Female 4:51 PM EST Gender Identity Not on file Sexual Orientation Not on file Last Filed Vital Signs Vital Sign Reading Time Taken Comments Blood Pressure 120/82 07/24/2022 4:38 PM EDT Pulse 74 07/24/2022 4:38 PM EDT Temperature - - Respiratory Rate - - Oxygen Saturation 99% 07/24/2022 4:38 PM EDT Inhaled Oxygen Concentration - - Weight 113 kg (250 lb) 07/24/2022 4:38 PM EDT Height - - Body Mass Index - - Plan of Treatment Health Maintenance Due Date Last Done Comments Breast Cancer Screening 1965 Pneumococcal Vaccine: Pediat rics (0 to 5 Years) and At-Risk Patients (6 to 64 Years) (1 of 2 - PCV) 06[birth year]11/1969 Colorectal Cancer Screening: Annual FOBT 06/11/2012 Colorectal Cancer Screening: Colonoscopy 06/11/2012 Colorectal Cancer Screening: Sigmoidoscopy 06/11/2012 Influenza Vaccine (#1) 2023 Hepatitis B Vaccine Aged Out No longe r eligible based on patient's age to complete this topic Insurance CIG[employer] CIG[employer] Care Teams Golf Technician Relationship Specialty Start Date End Date Cindy Maddox MD PCP - General Internal Medicine 11/29/20
[2024-03-25 07:47] LABS: Anion Gap 12 (12-20); Blood Urea Nitrogen 19 mg/dL (9-16); Calcium 9.3 mg/dL (8.4-10.2); Carbon Dioxide 27 mmol/L (22-29); Chloride 103 mmol/L (96-108); Estimated Glomerular Filt Rate > 60; Glucose Random 176 mg/dL (60-115); Magnesium 2.3 mg/dL (1.6-2.6); Sodium 138 mmol/L (135-145)
== END 2024-03-25 06:49 | disposition home or self-care (01) ==
LOC: HO.LAB 06:48
PROVIDERS: PCP Internal Medicine; Visit Provider Internal Medicine Hypertension Specialist
DX: E87.6 Hypokalemia (principal)
CPT/HCPCS: 36415; 80048; 83735

== ENCOUNTER 2024-06-09 08:00 | Outpatient (AMB) | payer OTHER, SELFPAY ==
--- OUTSIDE RECORDS SUMMARY | 2024-06-09 08:05 | XMS_ITS | Clinical Summary ---
Author Organization [facility] [address] [place] [address] [place] [phone] Phone Care Team Providers Care Creative Producer Name Role Phone Liyah Estrada MD Primary Care Prov ider Allergies Active Allergy Reactions Criticality Noted Date Comments Nitrofurantoin Monohyd/M-Cryst Headache 10/28/2022 Difficulty breathing Other Runny nose 06/16/2017 Medications buPROPion XL (WELLBUTRIN XL) 300 mg 24 hr tablet Take 1 tablet (300 mg total) by mouth 1 (one) time each day in the morning. 4 Active pravastatin (PRAVACHOL) 20 mg tablet Take 1 tablet (20 mg total) by mouth 1 (one) time each day. 4 Active losartan (COZAAR) 50 mg tablet Take 1 tablet (50 mg total) by mouth 1 (one) time each day. 4 Active potassium chloride 20 mEq tablet extended release Take 1 tablet by mouth 1 (one) time each day. 3 Active potassium chloride (Klor-Con 10) 10 mEq CR tablet TAKE 1 TABLET BY MOUTH ONCE DAILY IN THE EVENING. DO NOT CRUSH OR CHEW 3 Active acetaZOLAMIDE (DIAMOX) 125 mg tablet Take 1 tablet (125 mg total) by mouth 2 (two) times a day. Active omeprazole (PriLOSEC) [address] capsule Take 1 capsule (20 mg total) by mouth every other day. Active triamcinolone (KENALOG) 0.025 % cream Apply sparingly to affected area twice daily. 2 Active butalbital-acet aminophen-caffe ine (FIORICET, ESGIC) 50-325-40 mg per tablet Take 1 tablet by mouth 2 times daily as needed for Pain for up to 10 days. 1 Active erenumab-aooe (Aimovig Autoinjector) 140 mg/mL injection INJECT 1 ML (140MG) ONCE A MONTH 9 Active cholecalciferol (VITAMIN D-3) 50 mcg (2,000 unit) capsule Take 2 capsules (4,000 Units total) by mouth 1 (one) time each day. 9 Active cetirizine (ZyrTEC) 10 mg tablet Take 1 tablet (10 mg total) by mouth 1 (one) time each day. 9 Active magnesium oxide (MAG-OX) 400 mg (241.3 elemental magnesium) tablet 8 Active albuterol HFA (PROAIR HFA ; PROVENTIL HFA ; VENTOLIN HFA) 90 mcg/actuation inhaler TAKE 2 PUFFS BY MOUTH EVERY 6 HOURS FOR WHEEZING 8.5 each 1 5 Active Active Problems Problem Noted Date Diagnosed Date Class 2 severe obesity due t o excess calories with serious comorbidity in adult (CMS/HCC V24, CMS/HCC V28) 01/21/2024 Anxiety 04/06/2020 Vitamin D deficiency 04/06/2020 Postmenopausal bleeding 07/25/2016 Overview (01/21/2024): Dr. Tran Aldana - and EMBx, benign. Planning to establish care with our KILN OPERATOR. Mild intermittent asthma without complication Lumbar disc herniation with radiculopathy 2014 Overview (01/21/2024): L5 disc herniation Right-sided low back pain with right-sided sciat ica 09/06/2014 Fatty liver disease, nonalcoholic 11/15/2013 Migraine 09/13/2013 Hyperlipemia 05/20/2013 Primary hypertension 08/06/2012 Depression 03/30/2012 GERD (gastroesophageal reflux disease) 3 Kidney stone 03/30/2012 Immunizations Name Administration Dates Next Due Moderna (age 6mo & older) Bi valent, COVID-19, 0.5 mL or 0.25 mL dosage 04/12/2022 PPD Test 01/14/2018 Tdap Tetanus diptheria acell ular pertussis (Boostrix; Adacel) 7yo and older 08/26/2012 Zoster recombinant (Shingrix) 19yo and older 01/2024 Surgical History Surgery Date Site/Laterality Comments CHOLECYSTECTOMY 2002 PROCEDURE: HISTORICAL CHOLECYSTECTOMY ESOPHAGOGASTRODUODENOSCOPY 09/07/13 PROCEDURE: [place] ESOPHAGOGASTRODUODENOSCOPY TRANSORAL DIAGNOSTIC; COMMENT: normal COLONOSCOPY 09/07/13 [...] 2 Daughter 1 Catrina Alive Daughter 2 Jesisca Alive Father (Age 62) Maternal Grandfather Maternal [...] at Not on file Legal Sex Female 12:11 PM EST Gender Identity Not on file Sexual Orientation Not on file Obstetrics History Last Filed [...] Care Team (Late st Contact Info) Description 09/06/2024 2:00 PM EDT Office Visit Adult Medicine [facility] - [address] [phone] Liyah Estrada MD [address] [place] [phone] 11/15/2024 10:30 AM EDT Appointment Radiology Department - [address] [phone] Health Maintenance Due Date Last Done Comments Pneumococcal Vaccine: 50+ Years (1 of 2 - PCV) 06[birth year]11/1982 Pneumococcal Vaccine: Pediatrics (0 to 5 Years) and At-Risk Patients (6 to 64 Years) (1 of 2 - PCV) 06/11/1982 Depression Screening 01/26/2022 HIV Screening 01/26/2022 Social Influencers of Health Screening 01/26/2022 DTaP,Tdap,and Td Vaccines (2 - Td or Tdap) 08/26/2022 08/26/2012 RSV Immunization Adult Patients (1 - Risk 60-74 years 1-dose series) 2023 COVID-19 Vaccine (5 - season) 2023 04/12/2022, 02/13/2021, 06/10/2020, Additional history exists Zoster Vaccines (2 of 2) 11/24/2023 09/29/2023 Colorectal Cancer Screening: Colonoscopy 04/12/2024 04/12/2019 Hypertension/CHF/CAD Annual BMP Blood Test 09/28/2024 09/29/2023, 09/29/2023 Influenza Vaccine (Season Ended) 2024 Breast Cancer Screening 10/26/2025 10/27/19, 10/27/2023, 07/28/2021, [...] patient's age to complete this topic Meningococcal B Vaccine Aged Out No l onger eligible based on patient's age to complete [...] screening mammogram for malignant neoplasm of breast HM ANNUAL BMP BLOOD TEST Routine 09/29/2023 LIPID [...] % Breast cancer risk category Low (<15%) us Steffi ESTRADA IMG XR PROCEDURES Final Result * Annual BMP Blood Test (09/29/2023) [facility] Annual BMP Blood Test Abstracted Result [facility] Provider HEALTH MAINTENANCE Final Result * (ABNORMAL) Lipid panel (09/29/2023) [facility] LDL/HDL Ratio 4 0 - 4 Triglycerides 147 0 - 150 mg/dL Cholesterol 192 0 - 200 mg/dL HDL 50 >=40 mg/dL LDL Cholesterol 113(A) 0 - 100 mg/dL Blood Venous blood specimen / Unknown Result [facility] Provider LAB BLOOD ORDERABLES Ailyn l Result * Cervical Cancer Screening: HPV (01/17/2022) [facility] Cervical Cancer Screening: HPV Abstracted, Negative Result [facility] Provider HEALTH MAINTENANCE Final Result * Colonoscopy (04/12/2019) [facility] Colonoscopy Abstracted. No Interpretation Anatomical Region Laterality Modality Other Result [facility] Historical Provider HEALTH MAINTENANCE Final Result * Hepatitis C Screening (07/05/2013) [facility] Hepatitis C Screening Abstracted Result [facility] Provider HEALTH MAINTENANCE Final Result from Last 3 Months or Most Recently Relevant to Health Maintenance Insurance [employer] Care Teams Creative Producer Relationship Specialty Start Date End Date Liyah Estrada MD [address] [place] [id number] PCP - General Internal Medicine 12/04/21
--- OUTSIDE RECORDS SUMMARY | 2024-06-09 08:05 | XMS_ITS | Clinical Summary ---
Author Organization [facility] Address [address] [facility] [address] [place] [address] Phone Care Team Providers Care Brake Machine Operator Name Role Phone Cindy Maddox MD Primary Care Provider [phone] Allergies Active Allergy Reactions Criticality Noted Date [...] benign. Planning to establish care with our DRY TRANSFER MAN. Mild intermittent asthma 07/21/2015 Lumbar disc prolapse with radiculopathy 09/07/2014 11/29/2020 Overview (11/29/2020): L5 disc herniation Lumbago with sciatica 09/06/20142020 History of polyp of colon 11/15/2013 Overview (11/29/2020): Two small T.A. Polyps seen on colonoscopy 2013. Repeat colonoscopy in 5 years. Non-alcoholic fatty liver 11/15/2013 Migraine 09/13/2013 11/29/2020 Hyperlipidemia 05/20/2013 11/29/2020 Depressive disorder 03/30/2012 11/30/19 21 Gastroesophageal reflux disease 03/30/2012 11/29/2020 Immunizations Immunization Administration Dates Next Due Moderna SARS-COV-2 06/10/2020,05/12/2020 [...] Comments Breast Cancer Screening 1965 Pneumococcal Vaccine: 50+ Ye ars (1 of 2 - PCV) 06/11/1982 Colorectal Cancer Screening: Annual FOBT 06/11/2012 Colorectal Cancer Screening: Colonoscopy 06/11/2012 Colorectal Cancer Screening: Sigmoidoscopy 06/11/2012 Influenza Vaccine (Season Ended) 2024 Hepatitis B Vaccine Aged Out No longe r eligible based on patient's age to complete this topic Insurance Cign[employer] Member Subscriber Plan / Payer (Ef fective 2011-Present) Name:Luba North Relation to Subscriber:Self Name:Luba North Payer ID:[id number] ([facility]) Type:Not on file Address: [facility] [address] [place] [address] Cigna Member Subscriber Plan / Payer (Ef fective 2011-Present) Name:Luis Northie Relation to Subscriber:Self Name:Luba North Payer ID:[id number] ([facility]) Type:Not on file Address: [facility] [id number] [place] [address] Care Teams Brake Machine Operator Relationship Specialty Start Date End Date Cindy Maddox MD PCP - General Internal Medicine 11/29/20
[2024-06-09 08:10] VITALS: BP 114/84; PULSE 78; O2SAT 95; BMI 40.2
--- NOTE | 2024-06-09 08:10 | A.OFFVIS_ITS ---
Vital Signs 06/09/24 08:10 Height 5 ft 6 in Weight 249 lb 6 oz BMI 40.2 BP 114/84 Blood Pressure Location Lt brachial Position Sitting Pulse 78 Pulse Source Pulse Oximeter Pulse Oximetry (%) 95 Oxygen Delivery Method Room Air Intake Visit Reasons: Follow UP 6mo Intake Note: Patient presents follow up Numbness/Sleep medication. Compliance in chart. Patient states having trouble with migraines every day. states start on right side front and move to the back. Accompanied by: Spouse Allergies house dust mite Allergy (Mild, Verified 06/09/24 08:13) Sneezing zolmitriptan [Zomig] Adverse Reaction (Unknown, Verified 06/09/24 08:13) palpitations HPI Comments Details: 58 year old female presents for f/u visit for chronic migraines and RENETTA. She is on Aimovig x 1 monthly and Fiorect 50-300mg PO as needed for the last week it has been every other day with adjunct use ativan 0.5mg PO prn. She says the last week of Aimovig prior to her subcut shot, is the worse with increased frequency and severity. She continues to have migraines 4-5 x a month, but they are less intense with Aimovig use. She has tried Gabapentin 300mg PO, however increased balance and gait difficulties in the mornings, so she discontinued it. She tried Topiramate however caused dry mouth, she tried Triptans and they caused chest tightening with palpitations. She tried Acetazolamide 125mg PO BID and it didn't decrease the frequency of the headaches, she would like to try it again today. She continues to take magnesium and her migraines then decrease in intensity and frequency. Her vision continues to be blurry during the migraine episodes with floaters, however mindful meditation with music helps. She denies neck pain, reports she was sick for one week where she was unable to use her CPAP machine for that period. She has a f/u appt with her ground instructor advanced for palpitations since her potassium levels are fluctuating goes from 3.0 at lowest, and she feels like she is going to pass out and they will increase to 4.8 at the highest. Resting in a darkroom and using fioricet helps to relieve the headaches. Cold weather, walking, noise, smells, and light sensitivity continue to be triggers and make her nauseous, however she does not vomit. RLS She gets muscle cramps and burning leg pain at night, she wakes up several times tossing and turning, sometimes she goes back to sleep and others she works on her computer. We discussed the importance of sleep hygiene and why white light is stimulating for the brain and will deprive her from cycling through the 4 stages of sleep from N1, N2, N3 and REM. She uses her CPAP 6/7 days per week, sleeps 6-7 hours on a good night when she is not sick with an URI or allergies. She is interested in Nasal Toradol use or Nasal Zavegepant today for quick onset of migraine relief. [facility] Medical History Hypokalemia Neuropathy Numbness and tingling of both feet Asthma HLD (hyperlipidemia) HTN (hypertension) Surgical History Hx of cholecystectomy Family History Brother Hypokalemia Social History Alcohol intake: never Patient Tobacco Use Status: Never used Tobacco Physical Exam Vital Signs: Last Vital Signs Pulse 78 06/09/24 08:10 BP 114/84 06/09/24 08:10 Pulse Ox 95 06/09/24 08:10 Oxygen Delivery Method Room Air 06/09/24 08:10 BMI result Body Mass Index 40.2 Const General: cooperative Nutritional Appearance: obese Orientation/consciousness: patient oriented x3 Eyes Pupils: Equal, round and reactive pupils present Resp Effort & Inspection: able to speak in complete sentences Neuro General: patient oriented x3 and moves all extremities Cranial nerves: Yes Equal, round and reactive pupils present, Yes Normal accommodation reflex present, Yes Bilaterally intact EOM present, Yes Normal facial strength present, Yes Midline tongue present, Yes Ability to bilaterally rotate head present and Yes Ability to bilaterally elevate shoulders present Cognition (Neuro): normal cognition Gait exam (Neuro): Normal gait present Motor exam (neuro): 5/5 motor strength present throughout and Normal motor muscle tone present throughout Coordination: [id number] test normal Extrem General: Yes full ROM Psych Appearance: grossly normal Speech and movement: Normal speech and movement present Affect: normal affect Results Reviewed Results Reviewed: July 2022 FINDINGS: Left tibial and peroneal motor and sensory studies were performed. Left superficial peroneal and sural sensory studies were performed. Tibial H-reflex was obtained and paraspinal muscles were tested with a needle. 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 RENETTA Compliance Report 2024 - 06/01/2024 Avg use 61/90 days = 68% >4 hours 57 days= 63% Avg total days 3 hrs. and 43min APAP [id number] Press. Med 10.7- 13.3cmH20 Leaks 0.9 - 32.0cmH20 AHI is 0.4/hr Assessment & Plan Assessment & Plan (1) Mild obstructive sleep apnea: Comment: AHI 12.8/hr, RI 15/hr, average O2 94% with O2 surekha 83% Code(s): G47.33 - Obstructive sleep apnea (adult) (pediatric) Category: Medical (2) Neuropathy: Code(s): G62.9 - Polyneuropathy, unspecified Category: Medical (3) Chronic migraine without aura: Code(s): G43.709 - Chronic migraine without aura, not intractable, without status migrainosus Category: Medical Qualifiers: Intractability: intractable Status migrainosus presence: without status migrainosus Qualified Code(s): G43.719 - Chronic migraine without aura, intractable, without status migrainosus Plan Mild Sleep Apnea Continue using CPAP and for more than 4 hours daily, also when napping during the day. MigrainesContinue with monthly Aimovig injections, will trial her on Nasal Zavgepant once PA is approved. Continue Acetazolamide 125mg PO BID for l. sided pressure headaches, use a migraine cap at onset of headache so it does not become a full blown migraine, she has had good results with Acetazolamide in the past, as Aimovig is wearing in the last week prior to her next dose, she would like to find an as needed medication for quick onset to abort migraine/ headache. RLS bilateral feet numbness and pain, may use RLS cream OTC or magnilife, will check iron/ Ferritin. B6 200mg PO daily at bedtime. Migraine Meds Tiraled in past: Triptans, Rizatriptans, Sumatriptans, Ellatriptans, gave her palpitations. Topiramate, dry mouth and dizziness. BB her BP is low, and has low K followed by ground instructor advanced/ poultry slaughterer. Will trial her on Zavgepant Nasal spray and consider Toradol nasal spray in the future. Continue magnesium 400mg at bedtime, may hold for loose stools or skip every other day. Continue using migraine cap, keep in freezer and put it on your head at the first sign of migraine. May also look into [employer] Environmental device for PC6 pressure point stimulation or Zok for neurostimulation of Cranial nerves via pneumatic insufflation, avoid Stress as it can trigger migraines, eat a well balanced diet and walk daily. F/U in [address] Walker Orders: Orders Ferritin 06/09/24 G62.9 - Polyneuropathy, unspecified, R20.0 - Anesthesia of skin, R20.2 - Paresthesia of skin Medications: New zavegepant 10 mg/actuation may use as needed during the onset of a migraine to abort the symptoms quickly. 1 spray intranasal ONCE 6 ea 1RF chronic migraines MDD 1 spray G43.709 - Chronic migraine without aura, not intractable, without status migrainosus Changed From acetazolamide 125 mg PO BID G43.009 - Migraine without aura, not intractable, without status migrainosus To acetazolamide may take 125mg PO BID for migraines. 125 mg PO BID 90 days 180 tabs 1RF migraines MDD 250mg G43.009 - Migraine without aura, not intractable, without status migrainosus Patient Instructions: Sleep Hygiene provided: set a scheduled bedtime and wake time to help regulate the circadian rhythm and balance the release of pituitary hormones. Sleep in a dark room, temperatures below 68 degrees, and no devices n bed. Limit caffeinated products 6 hours prior to bed, and limit fluids 2-4 hours prior to bed. Gentle night yoga, diffusing essential oils, and playing soft music can be relaxing. RLS B6 200mg PO at bedtime , magnilife otc cream or rest less leg cream, bengay, icy hot, ice packs, or weighted blanket. Migraine Meds Tiraled in past: Triptans, Rizatriptans, Sumatriptans, Ellatriptans, gave her palpitations. Topiramate, dry mouth and dizziness. BB her BP is low, and has low K followed by ground instructor advanced/ poultry slaughterer. Will trial her on Zavgepant Nasal spray and consider Toradol nasal spray in the future. Continue magnesium 400mg at bedtime, may hold for loose stools or skip every other day. Continue using migraine cap, keep in freezer and put it on your head at the first sign of migraine. May also look into Cognioio device for PC6 pressure point stimulation or Zok for neurostimulation of Cranial nerves via pneumatic insufflation, avoid Stress as it can trigger migraines, eat a well balanced diet and walk daily. Coding Level of Care Code Est Pt Level 4 (73251) Complex EM visit Add On G2211 Diagnoses Mild obstructive sleep apnea G47.33 Neuropathy G62.9 Intractable chronic migraine without aura and without status migrainosus G43.719 Intractability: intractable Status migrainosus presence: without status migrainosus Time Spent (min) 40
== END 2024-06-09 08:50 | disposition home or self-care (01) ==
LOC: HO.HSMS 08:00
PROVIDERS: PCP Internal Medicine; Visit Provider Physician Assistant Medical
DX: G47.33 Obstructive sleep apnea (adult) (pediatric) (principal); G62.9 Polyneuropathy, unspecified; G43.719 Chronic migraine without aura, intractable, without status migrainosus
CPT/HCPCS: 99214

== ENCOUNTER 2024-06-16 13:50 | Outpatient (AMB) | payer OTHER, SELFPAY ==
--- NOTE | 2024-06-16 13:52 | A.OFFVIS_ITS ---
Vital Signs 06/16/24 13:53 Height 5 ft 6 in Weight 240 lb 4.862 oz BMI 38.8 BP 122/80 Blood Pressure Location Lt brachial Position Sitting Pulse 88 Intake Visit Reasons: WEB MARKETING SPECIALIST/ Palpitations/Hypokalemia/ [place] Intake Note: New patient with ekg dx palpitations and hypokalemia c/o palpitations off and on Corporate Physical Security Supervisor Required: No Allergies house dust mite Allergy (Mild, Verified 06/09/24 08:13) Sneezing zolmitriptan [Zomig] Adverse Reaction (Unknown, Verified 06/09/24 08:13) palpitations Medication List - Last Reconciled 06/16/24 by Jayy Bartlett MD acetazolamide 125 mg PO BID 90 days MDD 250mg albuterol sulfate 90 mcg/actuation 2 puffs inhalation QID PRN bupropion HCl XL 300 mg PO QAM [id number]-mesfnbjuslqai-lcbq 50-300-40 mg (Fioricet) 1 cap PO Q4-6H PRN 90 days cholecalciferol (vitamin D3) 100 mcg PO DAILY cranberry fruit 400 mg PO DAILY erenumab-aooe (Aimovig Autoinjector) 140 mg subcut ONCE 90 days gabapentin 300 mg (3 x 100 mg) PO BEDTIME 90 days lorazepam 0.5 mg PO DAILY PRN losartan 50 mg PO DAILY magnesium oxide 500 mg PO DAILY potassium chloride ER 20 mEq PO DAILY pravastatin 20 mg PO DAILY triamcinolone acetonide 0.025% appl topical BID zavegepant 10 mg/actuation 1 spray intranasal ONCE MDD 1 spray HPI Comments Details: Thank you for referring Luba in cardiology consultation today for symptoms of palpitation. She is a pleasant 59-year-old female with history of hypertension, obesity, hypokalemia of unclear etiology currently on potassium supplementation. For years she has been having symptoms of palpitations. She describes as palpitation coming in waves and clusters where she would feel like her heart is fluttering. Symptoms last for few minutes and sometimes longer mostly at rest. She had no associated symptoms of lightheadedness, syncope. She was no associated chest pain. She does have exertional shortness of breath. She was strong family history of premature coronary artery disease in his father. She is currently taking medications for blood pressure and also currently taking medication for hypokalemia with potassium supplementation. She is currently being followed by Nephrology. There was concerned about hypokalemia and palpitation she was referred here for further evaluation. She has never had prior cardiac workup. She denies any prolonged irregular heartbeat or palpitations. Does have mild sleep apnea. [facility] Medical History Hypokalemia Neuropathy Numbness and tingling of both feet Asthma HLD (hyperlipidemia) HTN (hypertension) Surgical History Hx of cholecystectomy Family History Brother Hypokalemia Social History Alcohol intake: never Patient Tobacco Use Status: Never used Tobacco Review of Systems Const Denies chills, Denies daytime sleepiness, Denies fatigue, Denies fever(s), Denies frequent falls, Denies poor appetite, Denies snoring, Denies stops breathing during sleep, Denies weakness, Denies weight gain and Denies weight loss Eyes Denies loss of vision ENT Denies dizziness and Denies hearing loss Card Denies chest pain, Denies claudication, Denies leg edema, Denies lightheadedness, Denies palpitations, Denies dyspnea, Denies dyspnea on exertion and Denies orthopnea Resp Denies cough, Denies excessive phlegm production, Denies dyspnea, Denies dyspnea on exertion, Denies snoring and Denies wheezing GI Denies abdominal pain, Denies hematochezia, Denies change in bowel habits, Denies nausea and Denies vomiting Denies urinary frequency and Denies dysuria Musc Denies arthralgias, Denies muscle weakness, Denies numbness and Denies other (frequent falls) Skin/Breast Denies nail changes and Denies rash Neuro Denies Abnormal speech present, Denies dizziness, Denies frequent falls, Denies loss of vision, Denies memory loss, Denies numbness and Denies weakness Psych Denies depression and Denies memory loss Endo Denies fatigue and Denies palpitations Checo/Lymph Reports easy bruising and Reports other (anemia) Aller/Immun Denies wheezing Physical Exam Vital Signs: Last Vital Signs Pulse 88 06/16/24 13:53 BP 122/80 06/16/24 13:53 BMI result Body Mass Index 38.8 Const General: cooperative, comfortable, no acute distress, alert and awake Nutritional Appearance: obese Orientation/consciousness: patient oriented x3 Limitations: no limitations HEENT Head: Yes normocephalic and Yes atraumatic Neck Neck: Yes trachea midline, Yes supple and Yes no JVD Resp Effort & Inspection: normal respiratory effort Auscultation: clear to auscultation bilaterally Cardio Jugular venous distension: no JVD Palpation: normal PMI Rate: regular rate Rhythm: regular rhythm Heart sounds: S1 normal heart sound present, S2 normal heart sound present, no click, no gallops, no murmurs and no rubs GI Auscultation: normal bowel sounds Skin General skin exam: no rashes or lesions noted Neuro General: patient oriented x3 and no focal motor deficits Speech: No Abnormal speech present Extrem General: Yes no clubbing, cyanosis or edema Psych Appearance: grossly normal Office Procedures EKG Details: EKG shows normal sinus rhythm with low-voltage QRS most likely due to body habitus [id number], Complete Assessment & Plan Assessment & Plan (1) Palpitations: Code(s): R00.2 - Palpitations Category: Medical Plan: Symptoms of palpitation are most likely related to isolated extra systoles such as PVCs or PACs. Symptoms are not life interfering but bothersome. She was no other obvious clear triggers. This most likely increase cardiac excitability and isolated cardiac arrhythmias issues. Will need to rule out underlying structural heart disease given her risk factors of hypertension, hyperlipidemia, obesity and family history. Would suggest a treadmill exercise stress test to evaluate for ischemia. Also suggest an echocardiogram to evaluate LV systolic and diastolic function that may help guide treatment. Her symptoms are not bothersome but could represent frequent PVCs. Will suggest a Holter monitor to further assess for frequency of arrhythmias establish diagnose. The management was discussed with her. If these tests are within normal limits given her multiple risk factors consider coronary calcium score for further risk stratification and guiding therapy in terms of lipid modification if need be. (2) HTN (hypertension): Code(s): I10 - Essential (primary) hypertension Category: Medical Plan: Hypertension with currently blood pressure well optimized on current therapy. Importance of good blood pressure control was discussed. Advised to monitor blood pressure at home maintain a log. Goal blood pressure less than 130/84. Low-salt diet was discussed. She is encouraged to participate in aggressive risk factor modification especially weight loss program which will help it also management of sleep apnea. Follow up in the clinic in couple of months. Thank you for allowing me to partake in her care Orders: Orders CA stress test Today R00.2 - Palpitations CA echo transthoracic complete Today R00.2 - Palpitations ECG 14 day holter monitor Today R00.2 - Palpitations Coding Level of Care Code New Pt Level 4 (15723) Complex EM visit Add On G2211 Diagnoses Palpitations R00.2 HTN (hypertension) I10 CPT Codes EKG - CPT: 53686-[id number], Complete ([id number])
[2024-06-16 13:53] VITALS: BP 122/80; PULSE 88; BMI 38.8
--- OUTSIDE RECORDS SUMMARY | 2024-06-16 15:05 | XMS_ITS | Clinical Summary ---
Author Organization [facility] [address] [place] [address] [place] [address] Phone Care Team Providers Care Search Engine Marketing Strategist Name Role Phone Lyiah Estrada MD Primary Care Prov ider Allergies [...] benign. Planning to establish care with our COMMUNITY RELATIONS POLICE LIEUTENANT. Mild intermittent asthma without complication Lumbar disc [...] 2002 PROCEDURE: HISTORICAL CHOLECYSTECTOMY ESOPHAGOGASTRODUODENOSCOPY 09/07/13 PROCEDURE: CA ESOPHAGOGASTRODUODENOSCOPY TRANSORAL DIAGNOSTIC; COMMENT: normal COLONOSCOPY 09/07/13 [...] 2:00 PM EDT Office Visit Adult Medicine [facility] - [address] [phone] Liyah Estrada MD [address] [place] [id number] 11/15/2024 10:30 AM EDT Appointment Radiology Department - [address] [phone] Health Maintenance Due Date Last Done Comments [...] Result * Annual BMP Blood Test (09/29/2023) [facility] Annual BMP Blood Test Abstracted Result [facility] Provider HEALTH MAINTENANCE Final Result * (ABNORMAL) Lipid panel (09/29/2023) [facility] LDL/HDL Ratio 4 0 - 4 Triglycerides 147 0 - 150 mg/dL Cholesterol 192 0 - 200 mg/dL HDL 50 >=40 mg/dL LDL Cholesterol 113(A) 0 - 100 mg/dL Blood Venous blood specimen / Unknown Result [facility] Provider LAB BLOOD ORDERABLES Ailyn l Result * Cervical Cancer Screening: HPV (01/17/2022) [facility] Cervical Cancer Screening: HPV Abstracted, Negative Result [facility] Provider HEALTH MAINTENANCE Final Result * Colonoscopy (04/12/2019) [facility] Colonoscopy Abstracted. No Interpretation Anatomical Region Laterality Modality Other Result [facility] Historical Provider HEALTH MAINTENANCE Final Result * Hepatitis C Screening (07/05/2013) [facility] Hepatitis C Screening Abstracted Result [facility] Provider HEALTH MAINTENANCE Final Result from Last 3 Months or Most Recently Relevant to Health Maintenance Insurance [employer] Care Teams Search Engine Marketing Strategist Relationship Specialty Start Date End Date Liyah Estrada MD [address] [place] [phone] PCP - General Internal Medicine 12/04/21
--- OUTSIDE RECORDS SUMMARY | 2024-06-16 15:05 | XMS_ITS | Clinical Summary ---
Author Organization [facility] Address [address] [facility] [address] [place] [address] Phone Care Team Providers Care Landing Man Name Role Phone Cindy Maddox MD Primary Care Provider [phone] Allergies Active Allergy Reactions Criticality Noted Date [...] benign. Planning to establish care with our ENTRY OPERATOR. Mild intermittent asthma 07/21/2015 Lumbar disc prolapse [...] age to complete this topic Insurance Cigna Cigna Care Teams Landing Man Relationship Specialty Start Date End Date Cindy Maddox MD PCP - General Internal Medicine 11/29/20
== END 2024-06-16 14:32 | disposition home or self-care (01) ==
LOC: HO.HCS 13:50
PROVIDERS: PCP Internal Medicine; Visit Provider Internal Medicine Cardiovascular Disease
DX: R00.2 Palpitations (principal); I10 Essential (primary) hypertension
CPT/HCPCS: 93010; 99204

== ENCOUNTER → 2024-06-16 13:50 | Outpatient (BNVA) | payer OTHER, SELFPAY | PROVIDERS: PCP Internal Medicine; Visit Provider Internal Medicine Cardiovascular Disease | DX: R00.2 Palpitations (principal); I10 Essential (primary) hypertension | CPT/HCPCS: 93005 ==

== ENCOUNTER 2024-07-16 06:40 | Outpatient (REF) | payer OTHER, SELFPAY ==
[2024-07-16 07:36] LABS: Anion Gap 12 (12-20); Blood Urea Nitrogen 22 mg/dL (9-16); Calcium 9.6 mg/dL (8.4-10.2); Carbon Dioxide 23 mmol/L (22-29); Chloride 111 mmol/L (96-108); Estimated Glomerular Filt Rate > 60; Glucose Random 170 mg/dL (60-115); Sodium 142 mmol/L (135-145)
[2024-07-16 07:52] LABS: Ferritin 367 ng/mL (10-250)
== END 2024-07-16 06:41 | disposition home or self-care (01) ==
LOC: HO.LAB 06:40
PROVIDERS: Physician Assistant Medical; PCP Internal Medicine; Visit Provider Internal Medicine Hypertension Specialist
DX: E87.6 Hypokalemia (principal); G62.9 Polyneuropathy, unspecified; R20.0 Anesthesia of skin; R20.2 Paresthesia of skin
CPT/HCPCS: 36415; 80048; 82728

== ENCOUNTER 2024-07-26 11:47 | Outpatient (AMB) | payer OTHER, SELFPAY ==
--- NOTE | 2024-07-26 11:59 | HO.NEPHOV_ITS ---
Vital Signs 07/26/24 12:00 Height 5 ft 6 in Weight 238 lb 6 oz BMI 38.5 BP 142/76 H Blood Pressure Location Lt brachial Position Sitting Pulse 77 Pulse Source Pulse Oximeter Pulse Oximetry (%) 96 Oxygen Delivery Method Room Air Intake Visit Reasons: check up Enforcement Officer Required: No Accompanied by: Spouse Allergies house dust mite Allergy (Mild, Verified 07/26/24 12:00) Sneezing zolmitriptan [Zomig] Adverse Reaction (Unknown, Verified 07/26/24 12:00) palpitations Medication List - Last Reconciled 07/26/24 by Carmine Walker MD acetazolamide 125 mg PO BID 90 days MDD 250mg albuterol sulfate 90 mcg/actuation 2 puffs inhalation QID PRN bupropion HCl XL 300 mg PO QAM uctnvmyaop-xnuanvotvlhcv-wuto 50-300-40 mg (Fioricet) 1 cap PO Q4-6H PRN 90 days cholecalciferol (vitamin D3) 100 mcg PO DAILY cranberry fruit 400 mg PO DAILY erenumab-aooe (Aimovig Autoinjector) 140 mg subcut ONCE 90 days gabapentin 300 mg (3 x 100 mg) PO BEDTIME 90 days lorazepam 0.5 mg PO DAILY PRN losartan 50 mg PO DAILY magnesium oxide 500 mg PO DAILY potassium chloride ER 20 mEq PO DAILY pravastatin 20 mg PO DAILY triamcinolone acetonide 0.025% appl topical BID zavegepant 10 mg/actuation 1 spray intranasal ONCE MDD 1 spray HPI Comments Details: Luba is a middle-aged woman with history of chronic hypokalemia. She is on potassium supplementation. She has monitoring of potassium at home. She has periods of weakness. She underwent EMG which shows sensory neuropathy. She is waiting for Neurology evaluation. She underwent genetic studies which was not suggestive of periodic paralysis In August 2022 she developed bilateral leg edema. She was in the emergency room. No evidence of DVT. Cardiac hepatic and renal function were normal. The swelling subsided without any intervention/diuretics. 06/30/23 Doing well ;K has been stable ;1 episode of leg edema- resolved spontaneously in a day. No dyspnea 12/29/23 c/o Palpitations c/o cramps Now on Gabapentin for neuropathy HOme K readings are acceptable. lowest was 3.4 Mostly around 4 07/26/24 59-year-old female presenting for ongoing management and follow-up of HYPOKALEMIA and essential hypertension ,kidney health assessment. She experienced a recent episode of pneumonia and bronchitis, which manifested as significant fatigue over a span of one and a half weeks. The absence of gastrointestinal symptoms such as vomiting or diarrhea suggests an isolated respiratory event. Continual medication regimen includes acetazolamide, losartan, and potassium supplementation, maintaining her potassium levels within a stable baseline range. Previous weight management efforts indicate stable body weight over the past year. Patient's migraine management was reviewed in May with no changes advised by neurology, and CPAP treatment compliance is confirmed for sleep apnea. Pending cardiac evaluations include a stress test and Holter monitoring to further investigate possible arrhythmias recommended by her child care associate. REPLACED BY [facility] Medical History Hypokalemia Neuropathy Numbness and tingling of both feet Asthma HLD (hyperlipidemia) HTN (hypertension) Surgical History Hx of cholecystectomy Family History Brother Hypokalemia Social History Alcohol intake: never Patient Tobacco Use Status: Never used Tobacco Physical Exam Vital Signs: Last Vital Signs Pulse 77 07/26/24 12:00 BP 142/76 H 07/26/24 12:00 Pulse Ox 96 07/26/24 12:00 Oxygen Delivery Method Room Air 07/26/24 12:00 BMI result Body Mass Index 38.5 Const General: comfortable; No acute distress Orientation/consciousness: patient oriented x3 Eyes General: appearance normal, both eyes and all related structures Visual Pablo: normal visual pablo by confrontation Neck Neck: Yes supple and Yes no JVD Resp Effort & Inspection: normal respiratory effort and respiratory effort not decreased Auscultation: rhonchi Cardio Palpation: no palpable S3 and no palpable S4 Heart sounds: no rubs GI Inspection: Yes normal to inspection Palpation (GI): Soft to palpation Percussion: Yes normal to percussion Auscultation: normal bowel sounds General: Yes no CVA tenderness Back/Spine/Pelvis Back: no CVA tenderness Skin General skin exam: no petechiae and no purpura Neuro General: patient oriented x3 and no focal motor deficits Extrem General: No clubbing and No edema Results Reviewed Nephrology Results: Sodium 142 mmol/L (135-145) 07/16/24 Potassium 4.0 mmol/L (3.3-5.1) 07/16/24 Chloride 111 mmol/L (96-108) H 07/16/24 Carbon Dioxide 23 mmol/L (22-29) 07/16/24 BUN 22 mg/dL (9-16) H 07/16/24 Creatinine 0.94 mg/dL (0.5-1.4) 07/16/24 Calcium 9.6 mg/dL (8.4-10.2) 07/16/24 Phosphorus 2.8 mg/dL (2.7-4.5) 01/13/24 Assessment & Plan Assessment & Plan (1) HTN (hypertension): Code(s): I10 - Essential (primary) hypertension Category: Medical (2) Chronic hypokalemia: Code(s): E87.6 - Hypokalemia Category: Medical (3) Hypokalemia: Comment: ? hypokalemia periodic paralysis Code(s): E87.6 - Hypokalemia Category: Medical (4) Palpitations: Code(s): R00.2 - Palpitations Category: Medical Plan Middle-aged woman with chronic hypokalemia requiring supplementation. She has clinical features suggestive of hypokalemic periodic paralysis. Genetic studies did not support this. Goal is to maintain potassium more than 4 millimoles. Continue current Potassium supplementation and monitor periodically. Neuropathy Follow-up with Neurology Palpitations buddy setting of hypokalemia CArdiology work up in progress Orders: Orders Basic Metabolic Panel 6 Months E87.6 - Hypokalemia, I10 - Essential (primary) hypertension Coding Level of Care Code Est Pt Level 4 (88860) Diagnoses HTN (hypertension) I10 Chronic hypokalemia E87.6 Hypokalemia E87.6 Palpitations R00.2
[2024-07-26 12:00] VITALS: BP 142/76; PULSE 77; O2SAT 96; BMI 38.5
--- OUTSIDE RECORDS SUMMARY | 2024-07-26 13:32 | XMS_ITS | Clinical Summary ---
Author Organization [facility] Address [address] [place] [address] Phone Care Team Providers Care Culture Media Laboratory Assistant Name Role Phone Cindy Maddox MD Primary Care Provider [phone] Allergies Active Allergy Reactions Criticality Noted Date [...] benign. Planning to establish care with our TRANSITION MGR RN. Mild intermittent asthma 07/21/2015 Lumbar disc prolapse [...] this topic Insurance Cigna Cigna Care Teams Culture Media Laboratory Assistant Relationship Specialty Start Date End Date Cindy Maddox MD PCP - General Internal Medicine 11/29/20
== END 2024-07-26 12:11 | disposition home or self-care (01) ==
LOC: HO.HKA 11:47
PROVIDERS: PCP Internal Medicine; Visit Provider Internal Medicine Hypertension Specialist
DX: I10 Essential (primary) hypertension (principal); E87.6 Hypokalemia; R00.2 Palpitations
CPT/HCPCS: 99214

== ENCOUNTER → 2024-08-05 07:55 | Outpatient (REF) | payer OTHER, SELFPAY ==
--- NOTE | 2024-08-05 07:59 | HM_ITS ---
* Total monitoring time one day. * Underlying rhythm is sinus with an average rate of 83/Min. * Rare supraventricular ectopy. * Rare ventricular ectopy. * No significant pauses or high-grade AV blocks. * No patient markers or diary events. MTDD
--- NOTE | 2024-08-05 07:59 | CA_ITS ---
Acquisition Time: 2024-08-05 09:03:58 Total Exercise Time: 00:05:01 Test Indications: htn Medications: see h&p Protocol: SUNG Max HR: 151 BPM 94% of Pred: 159 BPM Max BP: 220/50 mmHG Max Work Load: 4.6 METS Exercise stress test with exercise 5 mins 1 sec of Sung Prootocol, held at Stage 1 due to leg weakness, achieving 94% MPHR, with reports of severe SOB, no chest pain, with isolated PVCs, with hypertensive response to exercise- max BP 220/50. Without EKG changes meeting criteria for ischemia. In recovery, pt's breathing gradually improved to baseline. BP improved as well. Test reviewed with Dr. Dowling. Pending echo we will review if pt needs further testing. Referred By: Jayy Bartlett Electronically Signed By: Sukumar Dinh
--- NOTE | 2024-08-05 07:59 | CA_ITS ---
Transthoracic Echocardiogram Patient (Last, First, Middle): Luba North, Gender: Female Date of : 1965 Age: 59 Procedure Date: 08/05/2024 Procedure Type: Transthoracic Echocardiogram Location: OP Height: 167.64 cm Weight: 107.96 kg BSA: 2.15 m2 Heart Rate: 69 bpm BP: 142 / 76 mmHg Spray Worker: NII Referring MD: Jayy Bartlett MD Symptoms: R00.2 - Palpitations Study Quality: Fair, contrast ECG Rhythm: Sinus Conclusions: - Normal left ventricular size, thickness, systolic function, and wall motion. The visually estimated ejection fraction is between 55-60%. - E/E prime ratio is between 8 and 15 consistent with indeterminate filling pressures. - Normal right ventricular cavity size and systolic function. Findings Procedure Information Contrast agent, definity, is being given per protocol without apparent complications. The quality of the study was technically difficult. Left Ventricle Normal left ventricular size, thickness, systolic function, and wall motion. The visually estimated ejection fraction is between 55-60%. Abnormal diastolic function is noted. Spectral Doppler is indicative of a pseudonormal filling pattern. E/E prime ratio is between 8 and 15 consistent with indeterminate filling pressures. Right Ventricle Normal right ventricular cavity size and systolic function. Atria The left atrium is normal in size. The right atrium is normal in size. Aortic Valve Normal aortic valve structure and function. There is no aortic valve stenosis. There is no aortic valve regurgitation. Mitral Valve The mitral valve appears normal. There is no mitral valve regurgitation. There is no mitral valve stenosis. Pulmonic Valve The pulmonic valve is likely normal. Tricuspid Valve Normal tricuspid valve structure. There is no tricuspid valve regurgitation. Tricuspid regurgitation envelope is inadequate for calculation of right ventricular systolic pressure. Normal right atrial pressure. Great Vessels All visible segments of the aorta are normal in size. The visualized portions of the pulmonary artery and branches are normal. Venous The inferior vena cava is normal in size and collapses greater than 50% with inspiration. Pericardium/Pleural There is no evidence of pericardial effusion. Prior Study Comparison No prior study available for comparison. Measurements 2D Linear Measurements IVSd: 0.99 0.6-0.9/0.6-1.0 cm LVIDd: 4.10 3.9-5.3/4.2-5.9 cm LVIDd Index: 1.91 2.4-3.2/2.2-3.1 cm/m2 LVIDs: 2.65 2.0-3.6 cm LVPWd: 0.88 0.7-1.1 cm LA Diam: 3.30 2.7-3.8/3.0-4.0 cm LAIDs Index: 1.53 1.5-2.3 cm/m2 LV Mass: 148.83 67-162/88-224 g LV Mass Index: 69.22 43-95/49-115 g/m2 LVOT Diam: 2.00 3.0+(-)1.3 cm 2D Systolic Function EF 4C: 53.50 >55% EF 2C: 59.10 >55% EF BiP: 54.80 >55% Mitral Valve MV Pk E: 0.80 MV PK A: 0.83 MV Decel Time: 200.00 E/A: 1.00 E'Lateral: 8.05 E'Medial: 5.77 E/E' Med: 13.90 E/E' Lat: 10.00 PHT: 58.00 MVA PHT: 3.79 Decel [place]: 4.01 Aortic Valve AoV Pk Hector: 1.17 AoV Pk Grad: 5.00 MP: 2.38 LVOT LVOT Pk Hector: 0.91 LVOT Mn Hector: 0.65 LVOT VTI: 0.19 LVOT Pk Grad: 3.00 LVOT Mn Grad: 2.00 LVOT Diam: 2.00 LVOT Area: 3.14 Diastolic Function MV Pk E: 0.80 MV Pk A: 0.83 E/A: 1.00 E'Medial: 5.77 E/E' Med: 13.90 E' Laterial: 8.05 E/E' Lat: 10.00 Right Ventricle TAPSE (mm): 21.40 TVS' Hector: 11.90 Tricuspid Valve RA Press: 3.00 Great Vessels Aorta Sinus of Valsalva: 3.10 2.0-3.5 cm Ao Asc: 3.30 2.1-3.4 cm Ao Arch: 2.90 Pulmonary Veins Pulm Vein S/D 1.50 Pulmonary Valve PV Pk Hector: 0.78 Peak PV Grad: 2.00 Updated in Other Vendor System with Status of Final Anton Dowling MD electronically signed on 08/08/2024 1:59:34 PM with status of Final
--- OUTSIDE RECORDS SUMMARY | 2024-08-05 07:59 | XMS_ITS | Clinical Summary ---
Author Organization [facility] Address [address] [facility] [address] [place] [address] Phone Care Team Providers Care Bariatric Surgeon Name Role Phone Cindy Maddox MD Primary Care Provider [phone] Allergies Active Allergy Reactions Criticality Noted Date [...] benign. Planning to establish care with our [facility]. Mild intermittent asthma 07/21/2015 Lumbar disc prolapse [...] this topic Insurance Cigna Cigna Care Teams Bariatric Surgeon Relationship Specialty Start Date End Date Cindy Maddox MD PCP - General Internal Medicine 11/29/20
== END ==
LOC: HO.CARD 07:55
PROVIDERS: PCP Internal Medicine; Visit Provider Internal Medicine Cardiovascular Disease
DX: R00.2 Palpitations (principal)
CPT/HCPCS: 93017; 93246; 93306; Q9957

== ENCOUNTER → 2024-08-05 07:59 | Outpatient (BNV) | payer OTHER, SELFPAY | PROVIDERS: PCP Internal Medicine | DX: I47.10 Supraventricular tachycardia, unspecified (principal); I49.3 Ventricular premature depolarization | CPT/HCPCS: 93016; 93018; 93227; 93320; 93325; 93350; 93352 ==

== ENCOUNTER 2024-08-16 09:26 | Outpatient (AMB) | payer OTHER, SELFPAY ==
--- OUTSIDE RECORDS SUMMARY | 2024-08-16 09:44 | XMS_ITS | Clinical Summary ---
Author Organization [facility] Address [address] [facility] [facility] [address] [place] [address] Phone Care Team Providers Care Applications Chemist Name Role Phone Cindy Maddox MD Primary Care Provider [phone] Allergies Active Allergy Reactions Criticality Noted Date [...] benign. Planning to establish care with our MARKETING REPORTING ANALYST. Mild intermittent asthma 07/21/2015 Lumbar disc prolapse [...] this topic Insurance Cigna Cigna Care Teams Applications Chemist Relationship Specialty Start Date End Date Cindy Maddox MD PCP - General Internal Medicine 11/29/20
--- NOTE | 2024-08-16 09:52 | A.OFFVIS_ITS ---
Vital Signs 08/16/24 09:53 Height 5 ft 6 in Weight 238 lb 8.642 oz BMI 38.5 BP 132/70 Blood Pressure Location Rt brachial Position Sitting Pulse 77 Pulse Source Pulse Oximeter Intake Visit Reasons: f/up holter/ ett/ echo NS Boxing Trainer: Boxing Trainer Present Allergies house dust mite Allergy (Mild, Verified 08/16/24 09:56) Sneezing zolmitriptan (Zomig) Adverse Reaction (Unknown, Verified 08/16/24 09:56) palpitations Medication List - Last Reconciled 08/16/24 by IMAN RodriguezC acetazolamide 125 mg PO BID 90 days MDD 250mg albuterol sulfate 90 mcg/actuation 2 puffs inhalation QID PRN bupropion HCl XL 300 mg PO QAM laktijiiov-nzmvfghsvwkxk-dwce 50-300-40 mg (Fioricet) 1 cap PO Q4-6H PRN 90 days cholecalciferol (vitamin D3) 100 mcg PO DAILY cranberry fruit 400 mg PO DAILY erenumab-aooe (Aimovig Autoinjector) 140 mg subcut ONCE 90 days gabapentin 300 mg (3 x 100 mg) PO BEDTIME 90 days lorazepam 0.5 mg PO DAILY PRN losartan 50 mg PO DAILY magnesium oxide 500 mg PO DAILY potassium chloride ER 20 mEq PO DAILY pravastatin 20 mg PO DAILY triamcinolone acetonide 0.025% appl topical BID HPI HPI f/up holter/ ett/ echo NS: Details: Luba is a 59-year-old female with past medical history of hypertension, mild obstructive sleep apnea, migraines, chronic hypokalemia who is being evaluated for heart palpitations. She underwent a Holter monitor, echocardiogram and exercise stress test and now presents for follow-up. Today she reports that she has been getting heart palpitations for years. The episodes are typically brief and feel like rapid heartbeat, lasting less than a minute. The episodes can make her feel lightheaded. No presyncope, syncope, falls. No chest discomfort at rest or with activity. No shortness of breath at rest, PND, orthopnea or edema. She does get shortness of breath with exertional activities but admits to being mostly sedentary. She was not able to wear the Holter monitor for more than 1 day due to skin irritation from the adhesive. is present. Takes meds as directed. [facility] Medical History Hypokalemia Neuropathy Numbness and tingling of both feet Asthma HLD (hyperlipidemia) HTN (hypertension) Surgical History Hx of cholecystectomy Family History Brother Hypokalemia Social History Alcohol intake: never Patient Tobacco Use Status: Never used Tobacco Review of Systems Const All systems reviewed & are unremarkable except as noted in HPI and below ENT Denies dizziness Card Details: heart palpitations Denies chest pain, Denies chest pain at rest, Denies chest pain with activity, Denies rapid heart rate, Denies pedal edema, Denies edema, Denies leg edema, Denies lightheadedness, Denies palpitations, Denies dyspnea, Reports dyspnea on exertion and Denies orthopnea Resp Denies cough, Denies dyspnea and Reports dyspnea on exertion GI Denies hematochezia and Denies change in stool character Musc Denies abnormal gait, Reports limited range of motion, Denies muscle cramps, Denies muscle weakness, Denies numbness, Denies radiating pain into limb, Denies stiffness and Denies tingling Neuro Denies abnormal gait, Denies dizziness, Denies numbness and Denies tingling Endo Denies palpitations Physical Exam Vital Signs: Last Vital Signs Pulse 77 08/16/24 09:53 BP 132/70 08/16/24 09:53 BMI result Body Mass Index 38.5 Const General: cooperative, healthy appearing, comfortable and no acute distress Orientation/consciousness: patient oriented x3 Neck Neck: Yes normal visual inspection Resp Effort & Inspection: normal respiratory effort Auscultation: clear to auscultation bilaterally, no rales, no rhonchi and no wheezes Cardio Rate: regular rate Rhythm: regular rhythm Heart sounds: S1 normal heart sound present, S2 normal heart sound present, no gallops, no murmurs and no rubs Skin General skin exam: no rashes or lesions noted Neuro General: patient oriented x3 Extrem General: Yes normal to inspection, No no pedal edema and No calf tenderness Psych Appearance: grossly normal Mental Status: mental status grossly normal Speech and movement: Normal speech and movement present Assessment & Plan Assessment & Plan (1) Palpitations: Code(s): R00.2 - Palpitations Category: Medical Plan: Reports of heart palpitations, most likely consistent with extrasystoles. Holter monitor worn for 24 hours showed sinus rhythm with rare supraventricular and ventricular ectopy. Echocardiogram done 08/05/2024 showed EF 55-60%, normal atria sizes, no regional wall motion abnormality. An exercise stress test 08/05/2024 with exercise 5 minutes, severe shortness of breath, isolated PVCs, no EKG changes of ischemia, max blood pressure 220/50. She tells me that that degree of exercise was beyond her normal activity. Reviewed findings with her. Suggested she purchase a Kardia mobile device that way rhythm strips of heart palpitations can be obtained without adhesive devices, if she is interested. Her shortness of breath with the exercise can be related to deconditioning and elevated blood pressure. Reviewed the reduction in caffeinated beverages, maintain good hydration, get adequate rest. Emergency care if needed for sustained rapid palpitations. Cardiology follow-up 4 months, sooner if needed for re-evaluation. (2) HTN (hypertension): Code(s): I10 - Essential (primary) hypertension Category: Medical Plan: Blood pressure goal less than 130/80. Blood pressure was elevated at time of stress test. Near goal at present. No medication changes made. Plan I discussed with the patient the possibility of extra systoles or possible supraventricular tachycardia as a cause for her palpitations, although it has not been confirmed due to the inability to capture the rhythm on a monitor. We talked about the use of a Kardia Mobile device for home monitoring, which could help identify the rhythm during episodes without the need for adhesive patches. I advised avoiding stimulants like caffeine and energy drinks, as they may exacerbate palpitations. I will inform the geothermal field technician about the patient's elevated blood pressure during the stress test for further management. We agreed on a follow-up in a few months to reassess her condition and treatment plan. Patient Instructions: - Monitor heart palpitations and note any triggers. - Consider purchasing a Kardia Mobile device for heart rhythm monitoring. - Avoid caffeine and energy drinks. - Continue taking losartan as prescribed. - Gradually increase physical activity, but stop if you experience shortness of breath or leg weakness. - Follow up in a few months for reassessment. Patient was informed and verbally consented to the use of an ambient scribe for clinic note documentation during this visit. Visit time spent on chart review, interview, assessment, orders, documentation. Coding Level of Care Code Est Pt Level 4 (20570) Complex EM visit Add On G2211 Diagnoses Palpitations R00.2 HTN (hypertension) I10 Time Spent (min) 28
[2024-08-16 09:53] VITALS: BP 132/70; PULSE 77; BMI 38.5
== END 2024-08-16 10:44 | disposition home or self-care (01) ==
LOC: HO.HCS 09:26
PROVIDERS: PCP Internal Medicine; Visit Provider Nurse Practitioner Family
DX: R00.2 Palpitations (principal); I10 Essential (primary) hypertension
CPT/HCPCS: 99214

== ENCOUNTER 2024-08-23 06:29 | Outpatient (REF) | payer OTHER, SELFPAY ==
[2024-08-23 07:51] LABS: Iron 81 mcg/dL (30-160); Percent Iron Saturation 31 % (15-50); Total Iron Binding Capacity 261 mcg/dL (228-428); Unsaturated Iron Binding 180 ug/dL
[2024-08-23 08:20] LABS: Folate 7.1 ng/mL (> or = 4.0); Vitamin B12 339 pg/mL (200-900)
== END 2024-08-23 06:30 | disposition home or self-care (01) ==
LOC: HO.LAB 06:29
PROVIDERS: PCP Internal Medicine; Visit Provider Physician Assistant Medical
DX: R53.1 Weakness (principal); G47.19 Other hypersomnia; R53.83 Other fatigue; G47.9 Sleep disorder, unspecified; R79.89 Other specified abnormal findings of blood chemistry
CPT/HCPCS: 36415; 82306; 82607; 82746; 83090; 83540; 83921; 84443

== ENCOUNTER → 2024-08-23 14:31 | Outpatient (BNV) | payer OTHER, SELFPAY | PROVIDERS: Visit Provider Internal Medicine | DX: R77.8 Other specified abnormalities of plasma proteins (principal) | CPT/HCPCS: 99204 ==

== ENCOUNTER 2024-09-13 08:53 | Outpatient (AMB) | payer OTHER, SELFPAY ==
[2024-09-13 09:00] VITALS: BP 130/76; PULSE 80; O2SAT 98; BMI 39.8
--- NOTE | 2024-09-13 09:00 | MHC.OFFVIS ---
Vital Signs 09/13/24 09:00 Height 5 ft 5 in Weight 239 lb BMI 39.8 BP 130/76 Blood Pressure Location Rt brachial Position Sitting Pulse 80 Pulse Source Pulse Oximeter Pulse Oximetry (%) 98 Oxygen Delivery Method Room Air Intake Visit Reasons: 3 month Follow Up Intake Note: Patient presents follow up RENETTA/Migraine medication. LABs/Compliance in chart(75/90 days, >=4hrs-83%, Average usage-4hr 31min, Med pressure- 10.0, Med leaks-2.1, AHI-0.4). Patient states migraines are lest frequent. when does have a migraine has to take second dose as doesnt go away. Allergies house dust mite Allergy (Mild, Verified 09/13/24 09:03) Sneezing zolmitriptan (Zomig) Adverse Reaction (Unknown, Verified 09/13/24 09:03) palpitations HPI Comments Details: 59 year old female presents for f/u of chronic migraines and RENETTA. Her Syd helps with history today. RENETTA Compliance Report 05/2024 -08/2024 total use is 75/90 days and >4 hours 83% avg daily totals is 4 hours and 31 min Med press [id number] Med leaks 1.0cmH20 AHI is 4/hr 06/16/2024 Interim Med Hx: Holter Monitor x1 day, per cardiology d/t palpitations. She had an allergic reaction and unable to tolerate holter. She feels refreshed when using her cpap and get a good nights sleep. She washes her mask, changes the hoses, filters and fills reservoir with distilled water daily. Migraines have now decreased she continues to have 3-4x a month, still 7/8 severity in pain. She is on Aimovig x 1 monthly and Fiorect 50-300mg po as needed during the last week of the month, she uses it every other day with adjunct use of ativan 0.5mg po prn. She has Nasal Zavegepant, however has not yet tried it. She says the last week of Aimovig prior to her subq shot is the worse with increased frequency and severity. She denies Auras. Her vision continues to be blurry with floaters, and needs to f/u with optometry, she notices it is blurry all the time. Her triggers for onset of migraines can be dehydration, skipping meals, cold/ pressure weather changes, photophobia, phonophobia noise sensitivity smells walking, [place] food makes her nauseas denies vomiting. Lying down in a darkroom and taking fioricet, improves the symptoms and relieves the headaches. RLS symptoms, she gets muscle cramps and burning leg pain at night, she wakes up several times tossing and turning, sometimes she goes back to sleep and others she works on her computer. She has tried Gabapentin 200mg PO, helps her to sleep through the night.. PFSH Medical History Hypokalemia Neuropathy Numbness and tingling of both feet Asthma HLD (hyperlipidemia) HTN (hypertension) Surgical History Hx of cholecystectomy Family History Brother Lung cancer Hypokalemia Mother Lymphoma Social History Alcohol intake: never Patient Tobacco Use Status: Never used Tobacco Physical Exam Vital Signs: Last Vital Signs Pulse 80 09/13/24 09:00 BP 130/76 09/13/24 09:00 Pulse Ox 98 09/13/24 09:00 Oxygen Delivery Method Room Air 09/13/24 09:00 BMI result Body Mass Index 39.8 Const General: cooperative Nutritional Appearance: obese Orientation/consciousness: patient oriented x3 Eyes Pupils: Equal, round and reactive pupils present Resp Effort & Inspection: able to speak in complete sentences Neuro General: patient oriented x3 and moves all extremities Cranial nerves: Yes Equal, round and reactive pupils present, Yes Normal accommodation reflex present, Yes Bilaterally intact EOM present, Yes Normal facial strength present, Yes Midline tongue present, Yes Ability to bilaterally rotate head present and Yes Ability to bilaterally elevate shoulders present Cognition (Neuro): normal cognition Gait exam (Neuro): Normal gait present Motor exam (neuro): 5/5 motor strength present throughout and Normal motor muscle tone present throughout Coordination: [id number] test normal Extrem General: Yes full ROM Psych Appearance: grossly normal Speech and movement: Normal speech and movement present Affect: normal affect Results Reviewed Results Reviewed: RENETTA Compliance Report 05/2024 -08/2024 total use is 75/90 days and >4 hours 83% avg daily totals is 4 hours and 31 min Med press [id number] Med leaks 1.0cmH20 AHI is 4/hr Assessment & Plan Assessment & Plan (1) Mild obstructive sleep apnea: Comment: AHI 12.8/hr, RI 15/hr, average O2 94% with O2 surekha 83% Code(s): G47.33 - Obstructive sleep apnea (adult) (pediatric) Category: Medical (2) Chronic migraine without aura: Code(s): G43.709 - Chronic migraine without aura, not intractable, without status migrainosus Category: Medical Qualifiers: Intractability: intractable Status migrainosus presence: without status migrainosus Qualified Code(s): G43.719 - Chronic migraine without aura, intractable, without status migrainosus (3) Pressure in head: Comment: Migraines with pressure / NPH? MRI Code(s): R51.9 - Headache, unspecified Category: Medical (4) Neuropathy: Comment: RLS / T2DM/ pt. education re: metanex supplement B12+ B6 + Methylfolate. Code(s): G62.9 - Polyneuropathy, unspecified Category: Medical Plan RENETTA Mild Sleep Apnea Continue using CPAP and for more than 4 hours daily. Has good clinical effects with use of cpap. Washes mask and hoses, changes filters and fills reservoir with water daily. Chronic Migraines: Continue with monthly Aimovig injections. 140mg subq qhs 90 days. Hold Acetazolamide 125mg PO BID for l. sided pressure headaches. she has Chronic hypokalemia (disorder) on their problem list, a condition similar to hypokalemia, which is a contraindication for the use of acetaZOLAMIDE 125 mg tablet. use a migraine cap at onset of headache so it does not become a full blown migraine, she has had good results with Acetazolamide in the past, however is C/I due to hypokalemaia per nephrology. Aimovig is wears off the last week prior to her next dose, and she adjuncts with Fiorect and Lorazepam 0.5mgpo prn. MRI - pressure headaches to r/o pathology NPH? Migraine Acute / episodic prevention and prevention: Continue Fiorecet Start Zavegepant 10mg / actuation zavzpret 1 spray intranasal, has not started yet. Continue magnesium 400mg at bedtime, may hold for loose stools or skip every other day Continue using migraine cap, keep in freezer and put it on your head at the first sign of migraine. RLS bilateral feet numbness and pain, may use RLS cream OTC or magnilife, Neuropathy Gabapentin 200mg po daily at bedtime. Ferritin is elevated, inflammation due to t2dm? B6 200mg PO daily at bedtime, labs to check b6 levels prior to starting b6. Start B12 1000mcg otc. Migraine Meds Trialed in past: Triptans, Rizatriptans, Sumatriptans, Ellatriptans, gave her palpitations. Topiramate, dry mouth and dizziness. BB her BP is low, and has low K followed by blending machine operator/ natural resources specialist. Azetozolamide C/I due to hypokalemia. Will trial her on Zavgepant Nasal spray and consider Toradol nasal spray in the future. May also look into Cadigo device for PC6 pressure point stimulation or Zok for neurostimulation of Cranial nerves via pneumatic insufflation, avoid stress as it can trigger migraines, avoid missing meals, hydrate may increase water intake, walk 15min daily. F/U in 3 months MRI - pressure headaches to r/o pathology Orders: Orders Vitamin B6 Today G62.9 - Polyneuropathy, unspecified MR head/brain wo/w con Today R51.9 - Headache, unspecified Patient Instructions: Sleep Hygiene provided: set a scheduled bedtime and wake time to help regulate the circadian rhythm and balance the release of pituitary hormones. Sleep in a dark room, temperatures below 68 degrees, and no devices n bed. Limit caffeinated products 6 hours prior to bed, and limit fluids 2-4 hours prior to bed. Gentle night yoga, diffusing essential oils, and playing soft music can be relaxing. Coding Level of Care Code Est Pt Level 4 (46939) Complex EM visit Add On G2211 Diagnoses Mild obstructive sleep apnea G47.33 Intractable chronic migraine without aura and without status migrainosus G43.719 Intractability: intractable Status migrainosus presence: without status migrainosus Pressure in head R51.9 Neuropathy G62.9 Time Spent (min) 35 Comment improving
--- OUTSIDE RECORDS SUMMARY | 2024-09-13 09:29 | XMS_ITS | Clinical Summary ---
Author Organization [address] Address [address] [place] [address] Phone Care Team Providers Care Senior Core Java Developer Name Role Phone Liyah Estrada MD Primary Care Prov ider Allergies Active Allergy Reactions Criticality Noted Date Comments Nitrofurantoin Monohyd/M-Cryst Headache 10/28/2022 Difficulty breathing Other Runny nose 06/16/2017 Medications potassium chloride 20 mEq tablet extended release [...] FOR WHEEZING 8.5 each 1 5 Active losartan (COZAAR) 50 mg tablet TAKE 1 TABLET DAILY 90 tablet 3 5 Active pravastatin (PRAVACHOL) 20 mg tablet TAKE 1 TABLET DAILY 90 tablet 3 5 Active buPROPion XL (WELLBUTRIN XL) 300 mg 24 hr tablet TAKE 1 TABLET EVERY MORNING 90 tablet 3 5 Active Active Problems Problem Noted Date Diagnosed Date Class 2 severe obesity due t o excess calories with serious comorbidity in adult (CMS/HCC V24, CMS/HCC V28) 01/21/2024 Anxiety 04/06/2020 Vitamin D deficiency 04/06/2020 Postmenopausal bleeding 07/25/2016 Overview (01/21/2024): Dr. Tran Aldana - US and EMBx, benign. Planning to establish care with our VIRTUAL REALITY SPECIALIST. Mild intermittent asthma without complication Lumbar disc herniation with radiculopathy 2014 Overview (01/21/2024): L5 disc herniation Right-sided low back pain with right-sided sciat ica 09/06/2014 Fatty liver disease, nonalcoholic 11/15/2013 Migraine 09/13/2013 Hyperlipemia 05/20/2013 Assessment & Plan (09/06/2024 2:38 PM EDT): On Pravastatin 20mg. Pending CMP, HLD results. Primary hypertension 08/06/2012 Assessment & Plan (09/06/2024 2:38 PM EDT): BP is well controlled, continue Losartan 50mg. Healthy diet and regular exercise discussed. Depression 03/30/2012 GERD (gastroesophageal reflux disease) 3 Kidney stone 03/30/2012 Encounters Date Type Department Care Team Description 09/06/2024 2:00 PM EDT Office Visit Adult Medicine [address] [address] Liyah Cordero MD Adult general medical examination (Primary Dx); Screen for colon cancer; Encounter for lipid screening for cardiovascular disease; Encounter for screening for HIV; Primary hypertension; Mixed hyperlipidemia from Last 3 Months Immunizations Name Administration Dates Next Due Moderna (age 6mo & older) Bi valent, COVID-19, 0.5 mL or 0.25 mL dosage 04/12/2022 PPD Test 01/14/2018 Tdap Tetanus diptheria acell ular pertussis (Boostrix; Adacel) 7yo and older 08/26/2012 Zoster recombinant (Shingrix) 19yo and older 01/2024 Surgical History Surgery Date Site/Laterality Comments CHOLECYSTECTOMY 2002 PROCEDURE: HISTORICAL CHOLECYSTECTOMY ESOPHAGOGASTRODUODENOSCOPY 09/07/13 PROCEDURE: ND ESOPHAGOGASTRODUODENOSCOPY TRANSORAL DIAGNOSTIC; COMMENT: normal COLONOSCOPY 09/07/13 [...] Daughter 1 Catrina Bipolar disorder Daughter 2 Jessiac : 990 Obesity Daughter 2 Jessica Heart [...] Sign Reading Time Taken Comments Blood Pressure 135/71 09/06/2024 2:07 PM EDT Pulse 86 09/06/2024 2:07 PM EDT Temperature 36.8 C (98.2 F) 09/06/2024 2:07 PM EDT Respiratory Rate 20 09/06/2024 2:07 PM EDT Oxygen Saturation 96% 09/06/2024 2:07 PM EDT Inhaled Oxygen Concentration - - Weight 107 kg (236 lb) 09/06/2024 2:07 PM EDT Height 166.4 cm (5' 5.5 ) 09/06/2024 2:07 PM EDT Body Mass Index 38.68 09/06/2024 2:07 PM EDT Plan of Treatment Upcoming Encounters Date Type Department Care Team (Late st Contact Info) Description 11/15/2024 10:30 AM EDT Appointment Radiology Department - [place] [address] [place] [address] 11/22/2024 1:[address] [facility] [address] [place] [id number] Santiago Mcclendon MD [address] [facility] [address] [place] [address] 09/12/2025 7:30 AM EDT Office Visit Adult Medicine [address] [phone] Liyah Estrada MD [address] [place] [address] Health Maintenance Due Date Last Done Comments HIV Screening 01/26/2022 Social Influencers of Health Screening 01/26/2022 RSV Immunization Adult Patients (1 - Risk 60-74 years 1-dose series) 2023 COVID-19 Vaccine ( season) 2023 04/12/2022, 02/13/2021, 06/10/2020, Additional history exists Depression Screening 02/18/2024 Colorectal Cancer Screening: Colonoscopy 04/12/2024 04/12/2019 Hypertension/CHF/CAD Annual BMP Blood Test 09/28/2024 09/29/2023, 09/29/2023, 12/27/2022 Influenza Vaccine (#1) 2024 Breast Cancer Screening 10/26/2025 10/27/19 24, 10/27/2023, 07/28/2021, Additional history exists Cervical Cancer Screening: HPV 01/17/2027 01/17/2022 Cholesterol Screening (Lipid Panel) 09/28/2028 09/29/2023, 09/29/2023 DTaP,Tdap,and Td Vaccines Discontinued 08/26/2012 Hepatitis C Screening Completed 07/05/2013 Zoster Vaccines Completed 01/16/2024, 09/29/2023 HIB Vaccines Aged Out No longer eligi [...] on patient's age to complete this topic Pneumococcal Vaccine: 50+ Years Discontinued RSV Immunization Patients Under 20 months Aged [...] are composed of fatty and fibroglandular tissue. No suspicious mass, architectural distortion or suspicious calcifications [...] % Breast cancer risk category Low (<15%) Result [facility] Steffi ESTRADA IMG XR PROCEDURES Final Result * Annual BMP Blood Test (09/29/2023) [facility] Annual BMP Blood Test Abstracted Result [facility] HEALTH MAINTENANCE Final Result * (ABNORMAL) Lipid panel (09/29/2023) [facility] LDL/HDL Ratio 4 0 - 4 Triglycerides 147 0 - 150 mg/dL Cholesterol 192 0 - 200 mg/dL HDL 50 >=40 mg/dL LDL Cholesterol 113(A) 0 - 100 mg/dL Blood Venous blood specimen / Unknown Result [facility] Provider LAB BLOOD ORDERABLES Ailyn l Result * Cervical Cancer Screening: HPV (01/17/2022) [facility] Cervical Cancer Screening: HPV Abstracted, Negative Result [facility] HEALTH MAINTENANCE Final Result * Colonoscopy (04/12/2019) [facility] Colonoscopy Abstracted. No Interpretation Anatomical Region Laterality Modality Other Result [facility] HEALTH MAINTENANCE Final Result * Hepatitis C Screening (07/05/2013) Hepatitis C Screening Abstracted Historical Provider HEALTH MAINTENANCE Final Result from Last 3 Months or Most Recently Relevant to Health Maintenance Insurance [facility] Care Teams Senior Core Java Developer Relationship Specialty Start Date End Date Liyah Estrada MD [address] [place] [phone] PCP - General Internal Medicine 12/04/21
--- OUTSIDE RECORDS SUMMARY | 2024-09-13 09:29 | XMS_ITS ---
Author Name [facility] Organization Unknown Care Team Organization Name Specialty Phone Email Start Date End Da te [facility] Termed, PROVIDER Primary Care 12/25/202109/17
--- OUTSIDE RECORDS SUMMARY | 2024-09-13 09:29 | XMS_ITS | Clinical Summary ---
Author Organization [facility] Address [address] [facility] [address] [place] [address] Phone Care Team Providers Care Chip Unloader Name Role Phone Cindy Maddox MD Primary Care Provider [phone] Allergies Active Allergy Reactions Criticality Noted Date [...] benign. Planning to establish care with our EVENING SITTER. Mild intermittent asthma 07/21/2015 Lumbar disc prolapse [...] Cancer Screening: Sigmoidoscopy 06/11/2012 Influenza Vaccine (#1) 2024 Hepatitis B Vaccine Aged Out No longe r eligible based on patient's age to complete this topic Insurance [employer] Care Teams Chip Unloader Relationship Specialty Start Date End Date Cindy Maddox MD PCP - General Internal Medicine 11/29/20
== END 2024-09-13 09:50 | disposition home or self-care (01) ==
LOC: HO.HSMS 08:56
PROVIDERS: PCP Internal Medicine; Visit Provider Physician Assistant Medical
DX: G47.33 Obstructive sleep apnea (adult) (pediatric) (principal); G43.719 Chronic migraine without aura, intractable, without status migrainosus; R51.9 Headache, unspecified; G62.9 Polyneuropathy, unspecified
CPT/HCPCS: 99214

== ENCOUNTER → 2024-10-30 09:16 | Outpatient (BNV) | payer OTHER, SELFPAY | PROVIDERS: Visit Provider Radiology Diagnostic Radiology | DX: G31.1 Senile degeneration of brain, not elsewhere classified (principal) | CPT/HCPCS: 70551 ==

== ENCOUNTER 2024-10-30 09:26 | Outpatient (REF) | payer OTHER, SELFPAY ==
--- NOTE | ~2024-10-30 | MR_ITS ---
EXAMINATION: MR BRAIN WITHOUT IV CONTRAST HISTORY: R51.9 - Headache, unspecified TECHNIQUE: Sagittal T1 and FLAIR, and axial T1, FLAIR, T2, gradient echo, and diffusion weighted MR images of the brain were obtained. COMPARISON: Correlation is made with an unenhanced head CT dated 11/01/2012. FINDINGS: The pituitary is normal in size. The cerebellar tonsils are normally located. There is diffuse prominence of the ventricular system and cortical sulci, consistent with atrophy. Starks/white differentiation is normal. There is no mass effect or midline shift. No intra or extra-axial fluid collections are identified. There are no foci of restricted diffusion. Normal vascular flow voids are noted in the basilar and carotid arteries. The visualized paranasal sinuses are clear. MR/MR head/brain wo con IMPRESSION: No acute intracranial abnormality. Electronically signed by: Kar Sifuentes MD 11/01/2024 07:13 AM EDT
--- OUTSIDE RECORDS SUMMARY | 2024-10-30 09:29 | XMS_ITS | Clinical Summary ---
Author Organization [facility] Address [address] [facility] [address] [place] [address] Phone Care Team Providers Care Licensed Midwife Name Role Phone Cindy Maddox MD Primary Care Provider [phone] Allergies Active Allergy Reactions Criticality Noted Date [...] benign. Planning to establish care with our [facility]. Mild intermittent asthma 07/21/2015 Lumbar disc prolapse [...] this topic Insurance [employer] Care Teams Licensed Midwife Relationship Specialty Start Date End Date Cindy Maddox MD PCP - General Internal Medicine 11/29/20
--- OUTSIDE RECORDS SUMMARY | 2024-10-30 09:29 | XMS_ITS | Clinical Summary ---
Author Organization [address] Address [address] [place] [address] Phone Care Team Providers Care Geotechnical Operating Engineer Name Role Phone Liyah Estrada MD Primary [...] benign. Planning to establish care with our 7TH GRADE TEACHER. Mild intermittent asthma without complication Lumbar disc [...] 2:00 PM EDT Office Visit Adult Medicine [address] [phone] Liyah Cordero MD Adult general medical examination [...] 2002 PROCEDURE: HISTORICAL CHOLECYSTECTOMY ESOPHAGOGASTRODUODENOSCOPY 09/07/13 PROCEDURE: [place] ESOPHAGOGASTRODUODENOSCOPY TRANSORAL DIAGNOSTIC; COMMENT: normal COLONOSCOPY 09/07/13 [...] Team (Late st Contact Info) Description 11/15/2024 10:40 AM EDT Appointment Radiology Department - [place] [address] [place], [place] [phone] 11/22/2024 1:30 PM EDT Appointment [facility] Endoscopy [address] [place] [phone] Santiago Mcclendon MD [address] [facility] [address] [place] [address] 09/12/2025 7:30 AM EDT Office Visit Adult Medicine [address] [phone] Liyah Estrada MD [address] [place] [address] Health Maintenance Due Date Last Done Comments Social Influencers of Health Screening 01/26/2022 RSV Immunization Adult Patients (1 - Risk 60-74 years 1-dose series) 2023 Depression Screening 02/18/2024 Colorectal Cancer Screening: Colonoscopy 04/12/2024 04/12/2019 COVID-19 Vaccine ( season) 2024 04/12/2022, 02/13/2021, 06/10/2020, Additional history exists Influenza Vaccine (#1) 2024 Hypertension/CHF/CAD Annual BMP Blood Test 10/11/2025 10/11/2024, 09/29/2023, 09/29/2023, Additional history exists Breast Cancer Screening 10/26/2025 10/27/19 24, 10/27/2023, 07/28/2021, Additional history exists Cervical Cancer Screening: HPV 01/17/2027 01/17/2022 Cholesterol Screening (Lipid Panel) 10/11/2029 10/11/2024, 09/29/2023, 09/29/2023 DTaP,Tdap,and Td Vaccines Discontinued 08/26/2012 Hepatitis C Screening Completed 07/05/2013 Zoster Vaccines Completed 01/16/2024, 09/29/2023 HIV Screening Completed 10/11/2024 HIB Vaccines Aged Out No longer eligi [...] Procedure Name Priority Date/Time Associated Diagnosis Comments CBC WITH AUTO DIFFERENTIAL Routine 10/11/2024 10:58 AM EDT Adult general medical examination CBC AND DIFFERENTIAL Routine 10/11/2024 10:58 AM EDT Adult general medical examination COMPREHENSIVE METABOLIC PANEL Routine 10/11/2024 10:58 AM EDT Adult general medical examination LIPID PANEL WITH REFLEX TO DIRECT LDL Routine 10/11/2024 10:58 AM EDT Encounter for lipid screening for cardiovascular disease THYROID STIMULATING HORMONE WITH REFLEX TO FREE T4 AND FREE T3 Routine 10/11/2024 10:58 AM EDT Adult general medical examination HIV 1, 2 ANTIBODY, P24 ANTIGEN WITH REFLEX TO DIFFERENTIATION Routine 10/11/2024 10:58 AM EDT Encounter for screening for HIV SCREENING MAMMOGRAPHY BI 2-VIEW BREAST INC CAD Routine 10/27/2023 11:24 AM EDT Encounter for screening mammogram for malignant neoplasm of breast HM HPV Routine 01/17/2022 COLONOSCOPY Routine 04/12/2019 HM HEPATITIS C SCREENING Routine 07/05/2013 from Last 3 Months or Most Recently Relevant to Health Maintenance Results * HIV 1,2 antibody, p24 antigen with reflex to differentiation (10/11/2024 10:58 AM EDT) Pathologist [facility] HIV Combo AB/AG Negative Negative LAB CHEMISTRY METHOD 10/11/2024 5:[address] [facility] Blood Venous blood specimen / Unknown Venipuncture / Unknown 10/11/2024 10:58 AM EDT 10/11/2024 10:[address] [facility] - 10/11/2024 5:35 PM EDT This assay is a 4th generation assay allowing for earlier detection of HIV infection by detecting the presence of the HIV-1 p24 antigen as well as the traditional antibodies to HIV type 1 (including group O) and type 2. Use of a 4th generation assay is the current CDC recommendation for HIV screening. us Liyah Estrada MD LAB BLOOD ORDERABL ES Final Result [facility] [address] [place] [address], [place] [phone] * Thyroid stimulating hormone with reflex to free t4 and free t3 (10/11/2024 10:58 AM EDT) Pathologist [facility] TSH 1.70 0.40 - 4.00 mcIU/mL LAB CHEMISTRY METHOD 10/11/2024 4:[address] [facility] Blood Venous blood specimen / Unknown Venipuncture / Unknown 10/11/2024 10:58 AM EDT 10/11/2024 10:58 AM EDT us Liyah Estrada MD LAB BLOOD ORDERABL ES Final Result Performing Organization Address City/[facility]/ZIP Co de Phone Number [facility] [address] [place] [address], [place] [phone] * (ABNORMAL) Lipid panel with reflex to direct LDL (10/11/2024 10:58 AM EDT) Cholesterol 196 0 - 200 mg/dL LAB CHEMISTRY METHOD 10/11/2024 4:[address] [facility] Triglycerides 191(H) 0 - 150 mg/dL LAB CHEMISTRY METHOD 10/11/2024 4:[address] [facility] HDL 52 >=40 mg/dL LAB CHEMISTRY METHOD 10/11/2024 4:[address] [facility] LDL Calculated 106(H) 0 - 100 mg/dL LAB CHEMISTRY METHOD 10/11/2024 4:[address] [facility] Comment:Estimated LDL Calcul ated using equation: Total cholesterol - HDL cholesterol - (Triglycerides/5) VLDL Cholesterol Arcadio 38.2 mg/dL LAB CHEMISTRY METHOD 10/11/2024 4:[address] [facility] Non HDL Chol. (LDL+VLDL) 144 <145 mg/dL LAB CHEMISTRY METHOD 10/11/2024 4:[address] [facility] Chol/HDL Ratio 3.8 0.0 - 4.4 LAB CHEMISTRY METHOD 10/11/2024 4:[address] [facility] Blood Venous blood specimen / Unknown Venipuncture / Unknown 10/11/2024 10:58 AM EDT 10/11/2024 10:58 AM EDT us Liyah Estrada MD LAB BLOOD ORDERABL ES Final Result [facility] [address] [place] [address], [place] [phone] * (ABNORMAL) CBC auto differential (10/11/2024 10:58 AM EDT) WBC 6.9 4.8 - 10.8 K/[facility] LAB HEMETOLOGY METHOD 10/11/2024 1:04 PM [facility] RBC 4.40 3.80 - 4.80 M/mcL LAB HEMETOLOGY METHOD 10/11/2024 1:04 PM [facility] Hemoglobin 13.6 11.5 - 16.0 g/dL LAB HEMETOLOGY METHOD 10/11/2024 1:04 PM [facility] Hematocrit 42.4 35.0 - 47.0 % LAB HEMETOLOGY METHOD 10/11/2024 1:04 PM [facility] MCV 97.0 79.0 - 98.0 FL LAB HEMETOLOGY METHOD 10/11/2024 1:04 PM [facility] MCH 31.1 27.0 - 32.0 pcg LAB HEMETOLOGY METHOD 10/11/2024 1:04 PM [facility] MCHC 32.1 32.0 - 37.0 g/dL LAB HEMETOLOGY METHOD 10/11/2024 1:04 [facility] RDW 13.2 11.0 - 15.0 % LAB HEMETOLOGY METHOD 10/11/2024 1:04 [facility] Platelets 268 130 - 400 K/mcL LAB HEMETOLOGY METHOD 10/11/2024 1:04 PM [facility] MPV 11.3(H) 7.0 - 11.0 FL LAB HEMETOLOGY METHOD 10/11/2024 1:04 PM [facility] NRBC 0.0 <1.0 % LAB HEMETOLOGY METHOD 10/11/2024 1:04 PM [facility] NRBC Absolute 0.00 <0.10 K/mcL LAB HEMETOLOGY METHOD 10/11/2024 1:04 PM [facility] Neutrophils Relative 60.5 % LAB HEMETOLOGY METHOD 10/11/2024 1:04 PM [facility] Lymphocytes Relative 30.8 % LAB HEMETOLOGY METHOD 10/11/2024 1:04 PM [facility] Monocytes Relative 6.0 % LAB HEMETOLOGY METHOD 10/11/2024 1:04 PM [facility] Eosinophils Relative 2.0 % LAB HEMETOLOGY METHOD 10/11/2024 1:04 PM [facility] Basophils Relative 0.6 % LAB HEMETOLOGY METHOD 10/11/2024 1:04 PM [facility] Immature Granulocytes Relative 0.1 % LAB HEMETOLOGY METHOD 10/11/2024 1:04 PM [facility] Neutrophils Absolute 4.16 1.50 - 7.00 K/mcL LAB HEMETOLOGY METHOD 10/11/2024 1:04 PM [facility] Lymphocytes Absolute 2.12 1.00 - 5.00 K/mcL LAB HEMETOLOGY METHOD 10/11/2024 1:04 PM [facility] Monocytes Absolute 0.41 0.20 - 1.00 K/mcL LAB HEMETOLOGY METHOD 10/11/2024 1:04 PM [facility] Eosinophils Absolute 0.14 0.00 - 0.50 K/mcL LAB HEMETOLOGY METHOD 10/11/2024 1:04 PM [facility] Basophils Absolute 0.04 0.00 - 0.20 K/mcL LAB HEMETOLOGY METHOD 10/11/2024 1:04 PM [facility] Immature Granulocytes Absolute 0.01 0.00 - 0.03 K/mcL LAB HEMETOLOGY METHOD 10/11/2024 1:04 PM [facility] Blood Venous blood specimen / Unknown Venipuncture / Unknown 10/11/2024 10:58 AM EDT 10/11/2024 10:58 AM EDT us Liyah Estrada MD LAB BLOOD ORDERABL ES Final Result [facility] [address] [place] [address], [place] [phone] * (ABNORMAL) Comprehensive metabolic panel (10/11/2024 10:58 AM EDT) Sodium 139 133 - 145 mmol/L LAB CHEMISTRY METHOD [facility] Potassium 4.0 3.5 - 5.5 mmol/L LAB CHEMISTRY METHOD 10/11/2024 4:19 PM [facility] Chloride 113(H) 96 - 110 mmol/L LAB CHEMISTRY METHOD 10/11/2024 4:19 PM [facility] CO2 20(L) 21 - 32 mmol/L LAB CHEMISTRY METHOD 10/11/2024 4:19 PM [facility] Anion Gap 6 3 - 11 LAB CHEMISTRY METHOD 10/11/2024 4:19 PM [facility] Glucose 164(H) 70 - 100 mg/dL LAB CHEMISTRY METHOD 10/11/2024 4:19 PM [facility] BUN 17 5 - 25 mg/dL LAB CHEMISTRY METHOD 10/11/2024 4:19 PM [facility] Creatinine 0.94 0.50 - 1.10 mg/dL LAB CHEMISTRY METHOD 10/11/2024 4:19 PM [facility] eGFR 69 >=60 mL/min/1. 73m2 LAB CHEMISTRY METHOD 10/11/2024 4:19 PM [facility] Comment:Calculation based on the Chronic Kidney Disease Epidemiology Collaboration (CKD-EPI) equation refit without adjustment for race. BUN/Creatinine Ratio 18.1 LAB CHEMISTRY METHOD 10/11/2024 4:19 PM [facility] Calcium 9.3 8.5 - 10.5 mg/dL LAB CHEMISTRY METHOD 10/11/2024 4:[address] [facility] AST (SGOT) 36 10 - 42 unit/L LAB CHEMISTRY METHOD 10/11/2024 4:[address] [facility] ALT (SGPT) 58 10 - 60 unit/L LAB CHEMISTRY METHOD 10/11/2024 4:[address] [facility] Alkaline Phosphatase 109 42 - 121 unit/L LAB CHEMISTRY METHOD 10/11/2024 4:[address] [facility] Total Protein 7.0 6.0 - 8.0 g/dL LAB CHEMISTRY METHOD 10/11/2024 4:[address] [facility] Albumin 3.8 3.2 - 5.0 g/dL LAB CHEMISTRY METHOD 10/11/2024 4:[address] [facility] Total Bilirubin 0.4 0.0 - 1.4 mg/dL LAB CHEMISTRY METHOD 10/11/2024 4:[address] [facility] Blood Venous blood specimen / Unknown Venipuncture / Unknown 10/11/2024 10:58 AM EDT 10/11/2024 10:58 AM EDT us Liyah Estrada MD LAB BLOOD ORDERABL ES Final Result [facility] [address] [place] [address], * SCREENING MAMMOGRAPHY BI 2-VIEW BREAST INC [...] Breast cancer risk category Low (<15%) Result [facility] Steffi ESTRADA IMG XR PROCEDURES Final Result * Cervical Cancer Screening: HPV (01/17/2022) [facility] Cervical Cancer Screening: HPV Abstracted, Negative Result [facility] Provider HEALTH MAINTENANCE Final Result * Colonoscopy (04/12/2019) [facility] Colonoscopy Abstracted. No Interpretation Anatomical Region Laterality Modality Other Result [facility] Provider HEALTH MAINTENANCE Final Result * Hepatitis C Screening (07/05/2013) [facility] Hepatitis C Screening Abstracted Result [facility] Provider HEALTH MAINTENANCE Final Result from Last 3 Months or Most Recently Relevant to Health Maintenance Insurance [employer] Care Teams Geotechnical Operating Engineer Relationship Specialty Start Date End Date Liyah Estrada MD [address] [place] [phone] PCP - General Internal Medicine 12/04/21
== END 2024-10-30 09:27 | disposition home or self-care (01) ==
LOC: HO.MRI 09:26
PROVIDERS: Visit Provider Physician Assistant Medical
DX: R51.9 Headache, unspecified (principal)
CPT/HCPCS: 70551

== ENCOUNTER 2024-11-04 06:42 | Outpatient (REF) | payer OTHER, SELFPAY ==
--- OUTSIDE RECORDS SUMMARY | 2024-11-04 06:44 | XMS_ITS | Clinical Summary ---
Author Organization [address] Address [address] [place] [address] Phone Care Team Providers Care Bid Manager Name Role Phone Liyah Estrada MD Primary [...] benign. 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 Mild intermittent asthma without complication Lumbar disc [...] 2:00 PM EDT Office Visit Adult Medicine [address] [phone] Liyah Cordero MD Adult general medical examination [...] 2002 PROCEDURE: HISTORICAL CHOLECYSTECTOMY ESOPHAGOGASTRODUODENOSCOPY 09/07/13 PROCEDURE: [place] ESOPHAGOGASTRODUODENOSCOPY TRANSORAL DIAGNOSTIC; COMMENT: normal COLONOSCOPY 09/07/13 [...] 10:40 AM EDT Appointment Radiology Department - [place] [address] [place], [place] [phone] 11/22/2024 1:30 PM EDT Appointment [facility] Endoscopy [address] [place] [phone] Santiago Mcclendon MD [address] [facility] [address] [place] [address] 09/12/2025 7:30 AM EDT Office Visit Adult Medicine [address] [phone] Liyah Estrada MD [address] [place] [address] Health Maintenance Due Date Last Done Comments [...] to differentiation (10/11/2024 10:58 AM EDT) Pathologist [facility] HIV Combo AB/AG Negative Negative LAB CHEMISTRY METHOD 10/11/2024 5:35 PM EDT [facility] Blood Venous blood specimen / Unknown Venipuncture / Unknown 10/11/2024 10:58 AM EDT 10/11/2024 10:58 AM EDT Narrative [facility] - 10/11/2024 5:35 PM EDT This [...] MD LAB BLOOD ORDERABL ES Final Result [facility] [address] [place] [address], [place] [phone] * Thyroid stimulating hormone with reflex to free t4 and free t3 (10/11/2024 10:58 AM EDT) Pathologist [facility] TSH 1.70 0.40 - 4.00 mcIU/mL LAB CHEMISTRY METHOD 10/11/2024 4:55 PM EDT [facility] Blood Venous blood specimen / Unknown Venipuncture / Unknown 10/11/2024 10:58 AM EDT 10/11/2024 10:58 AM EDT us Liyah Estrada MD LAB BLOOD ORDERABL ES Final Result Performing Organization Address City/[facility]/ZIP Co de Phone Number [facility] [address] [place] [address], [place] [phone] * (ABNORMAL) Lipid panel with reflex to direct LDL (10/11/2024 10:58 AM EDT) Cholesterol 196 0 - 200 mg/dL LAB CHEMISTRY METHOD 10/11/2024 4:19 PM EDT [facility] Triglycerides 191(H) 0 - 150 mg/dL LAB CHEMISTRY METHOD 10/11/2024 4:19 PM EDT [facility] HDL 52 >=40 mg/dL LAB CHEMISTRY METHOD 10/11/2024 4:19 PM EDT [facility] LDL Calculated 106(H) 0 - 100 mg/dL LAB CHEMISTRY METHOD 10/11/2024 4:19 PM EDT [facility] Comment:Estimated LDL Calcul ated using equation: Total cholesterol - HDL cholesterol - (Triglycerides/5) VLDL Cholesterol Arcadio 38.2 mg/dL LAB CHEMISTRY METHOD 10/11/2024 4:19 PM EDT [facility] Non HDL Chol. (LDL+VLDL) 144 <145 mg/dL LAB CHEMISTRY METHOD 10/11/2024 4:19 PM EDT [facility] Chol/HDL Ratio 3.8 0.0 - 4.4 LAB CHEMISTRY METHOD 10/11/2024 4:19 PM T [facility] Blood Venous blood specimen / Unknown Venipuncture / Unknown 10/11/2024 10:58 AM EDT 10/11/2024 10:58 AM EDT us Liyah Estrada MD LAB BLOOD ORDERABL ES Final Result [facility] [address] [place] [address], [place] [phone] * (ABNORMAL) CBC auto differential (10/11/2024 10:58 AM EDT) WBC 6.9 4.8 - 10.8 K/[facility] LAB HEMETOLOGY METHOD 10/11/2024 1:04 PM [facility] RBC 4.40 3.80 - 4.80 M/mcL LAB HEMETOLOGY METHOD 10/11/2024 1:04 PM [facility] Hemoglobin 13.6 11.5 - 16.0 g/dL LAB HEMETOLOGY METHOD 10/11/2024 1:04 PM [facility] Hematocrit 42.4 35.0 - 47.0 % LAB HEMETOLOGY METHOD 10/11/2024 1:04 PM [facility] MCV 97.0 79.0 - 98.0 FL LAB HEMETOLOGY METHOD 10/11/2024 1:04 PM [facility] MCH 31.1 27.0 - 32.0 pcg LAB HEMETOLOGY METHOD 10/11/2024 1:04 PM [facility] MCHC 32.1 32.0 - 37.0 g/dL LAB HEMETOLOGY METHOD 10/11/2024 1:04 [facility] RDW 13.2 11.0 - 15.0 % LAB HEMETOLOGY METHOD 10/11/2024 1:04 [facility] Platelets 268 130 - 400 K/mcL LAB HEMETOLOGY METHOD 10/11/2024 1:04 PM [facility] MPV 11.3(H) 7.0 - 11.0 FL LAB HEMETOLOGY METHOD 10/11/2024 1:04 PM [facility] NRBC 0.0 <1.0 % LAB HEMETOLOGY METHOD 10/11/2024 1:04 PM [facility] NRBC Absolute 0.00 <0.10 K/mcL LAB HEMETOLOGY METHOD 10/11/2024 1:04 PM [facility] Neutrophils Relative 60.5 % LAB HEMETOLOGY METHOD 10/11/2024 1:04 PM [facility] Lymphocytes Relative 30.8 % LAB HEMETOLOGY METHOD 10/11/2024 1:04 PM [facility] Monocytes Relative 6.0 % LAB HEMETOLOGY METHOD 10/11/2024 1:04 PM [facility] Eosinophils Relative 2.0 % LAB HEMETOLOGY METHOD 10/11/2024 1:04 PM [facility] Basophils Relative 0.6 % LAB HEMETOLOGY METHOD 10/11/2024 1:04 PM [facility] Immature Granulocytes Relative 0.1 % LAB HEMETOLOGY METHOD 10/11/2024 1:04 PM [facility] Neutrophils Absolute 4.16 1.50 - 7.00 K/mcL LAB HEMETOLOGY METHOD 10/11/2024 1:04 PM [facility] Lymphocytes Absolute 2.12 1.00 - 5.00 K/mcL LAB HEMETOLOGY METHOD 10/11/2024 1:04 PM [facility] Monocytes Absolute 0.41 0.20 - 1.00 K/mcL LAB HEMETOLOGY METHOD 10/11/2024 1:04 PM [facility] Eosinophils Absolute 0.14 0.00 - 0.50 K/mcL LAB HEMETOLOGY METHOD 10/11/2024 1:04 PM [facility] Basophils Absolute 0.04 0.00 - 0.20 K/mcL LAB HEMETOLOGY METHOD 10/11/2024 1:04 PM [facility] Immature Granulocytes Absolute 0.01 0.00 - 0.03 K/mcL LAB HEMETOLOGY METHOD 10/11/2024 1:04 PM [facility] Blood Venous blood specimen / Unknown Venipuncture / Unknown 10/11/2024 10:58 AM EDT 10/11/2024 10:58 AM EDT us Liyah Estrada MD LAB BLOOD ORDERABL ES Final Result [facility] [address] [place] [address], [place] [phone] * (ABNORMAL) Comprehensive metabolic panel (10/11/2024 10:58 AM EDT) Sodium 139 133 - 145 mmol/L LAB CHEMISTRY METHOD 10/[facility]2024 4:[facility] Potassium 4.0 3.5 - 5.5 mmol/L LAB CHEMISTRY METHOD 10/11/2024 4:19 PM [facility] Chloride 113(H) 96 - 110 mmol/L LAB CHEMISTRY METHOD 10/11/2024 4:19 PM [facility] CO2 20(L) 21 - 32 mmol/L LAB CHEMISTRY METHOD 10/11/2024 4:19 PM [facility] Anion Gap 6 3 - 11 LAB CHEMISTRY METHOD 10/11/2024 4:19 PM [facility] Glucose 164(H) 70 - 100 mg/dL LAB CHEMISTRY METHOD 10/11/2024 4:19 PM [facility] BUN 17 5 - 25 mg/dL LAB CHEMISTRY METHOD 10/11/2024 4:19 PM [facility] Creatinine 0.94 0.50 - 1.10 mg/dL LAB CHEMISTRY METHOD 10/11/2024 4:19 PM [facility] eGFR 69 >=60 mL/min/1. 73m2 LAB CHEMISTRY METHOD 10/11/2024 4:19 PM [facility] Comment:Calculation based on the Chronic Kidney Disease Epidemiology Collaboration (CKD-EPI) equation refit without adjustment for race. BUN/Creatinine Ratio 18.1 LAB CHEMISTRY METHOD 10/11/2024 4:19 PM [facility] Calcium 9.3 8.5 - 10.5 mg/dL LAB CHEMISTRY METHOD 10/11/2024 4:19 PM EDT [facility] AST (SGOT) 36 10 - 42 unit/L LAB CHEMISTRY METHOD 10/11/2024 4:19 PM EDT [facility] ALT (SGPT) 58 10 - 60 unit/L LAB CHEMISTRY METHOD 10/11/2024 4:19 PM EDT [facility] Alkaline Phosphatase 109 42 - 121 unit/L LAB CHEMISTRY METHOD 10/11/2024 4:19 PM EDT [facility] Total Protein 7.0 6.0 - 8.0 g/dL LAB CHEMISTRY METHOD 10/11/2024 4:19 PM EDT [facility] Albumin 3.8 3.2 - 5.0 g/dL LAB CHEMISTRY METHOD 10/11/2024 4:19 PM EDT [facility] Total Bilirubin 0.4 0.0 - 1.4 mg/dL LAB CHEMISTRY METHOD 10/11/2024 4:19 PM EDT [facility] Blood Venous blood specimen / Unknown Venipuncture / Unknown 10/11/2024 10:58 AM EDT 10/11/2024 10:58 AM EDT us iLyah Estrada MD LAB BLOOD ORDERABL ES Final Result [facility] [address] [place] [address], * SCREENING MAMMOGRAPHY BI 2-VIEW BREAST INC [...] Breast cancer risk category Low (<15%) Result [facility] Steffi ESTRADA IMG XR PROCEDURES Final Result * Cervical Cancer Screening: HPV (01/17/2022) [facility] Cervical Cancer Screening: HPV Abstracted, Negative Result [facility] Provider HEALTH MAINTENANCE Final Result * Colonoscopy (04/12/2019) [facility] Colonoscopy Abstracted. No Interpretation Anatomical Region Laterality Modality Other Result [facility] Provider HEALTH MAINTENANCE Final Result * Hepatitis C Screening (07/05/2013) [facility] Hepatitis C Screening Abstracted Result [facility] Provider HEALTH MAINTENANCE Final Result from Last 3 Months or Most Recently Relevant to Health Maintenance Insurance [employer] Care Teams Bid Manager Relationship Specialty Start Date End Date Liyah Estrada MD [address] [place] [phone] PCP - General Internal Medicine 12/04/21
--- OUTSIDE RECORDS SUMMARY | 2024-11-04 06:44 | XMS_ITS | Clinical Summary ---
Author Organization [facility] Address [address] [facility] [address] [place] [address] Phone Care Team Providers Care Prize Fighter Name Role Phone Cindy Maddox MD Primary Care Provider [phone] Allergies Active Allergy Reactions Criticality Noted Date [...] benign. Planning to establish care with our DIRECTOR OF RESEARCH. Mild intermittent asthma 07/21/2015 Lumbar disc prolapse [...] this topic Insurance [employer] Care Teams Prize Fighter Relationship Specialty Start Date End Date Cidny Maddox MD PCP - General Internal Medicine 11/29/20
[2024-11-04 08:56] LABS: Anion Gap 11 (12-20); Blood Urea Nitrogen 19 mg/dL (9-16); Calcium 9.1 mg/dL (8.4-10.2); Carbon Dioxide 23 mmol/L (22-29); Chloride 113 mmol/L (96-108); Estimated Glomerular Filt Rate > 60; Potassium 3.8 mmol/L (3.3-5.1); Sodium 143 mmol/L (135-145)
== END 2024-11-04 06:43 | disposition home or self-care (01) ==
LOC: HO.LAB 06:42
PROVIDERS: Internal Medicine Hypertension Specialist; PCP Internal Medicine; Visit Provider Physician Assistant Medical
DX: E87.6 Hypokalemia (principal)
CPT/HCPCS: 36415; 80048

== ENCOUNTER 2025-01-10 08:57 | Outpatient (REF) | payer OTHER, SELFPAY ==
--- NOTE | ~2025-01-10 | US_ITS ---
CLINICAL HISTORY: ? Liver cirrhosis US right upper quadrant Comparison: None provided Findings: The visualized pancreas is normal. Liver measures 20.9 cm in length. Diffuse increased hepatic echogenicity. There is no intrahepatic bile duct dilatation. The common duct is 6 mm in diameter. Cholecystectomy. The main portal vein is antegrade. The right kidney is 11.9 cm in length. Unremarkable right kidney without hydronephrosis. No ascites. IMPRESSION: No hepatic mass lesion seen. Hepatic steatosis. Cholecystectomy. This document has been electronically signed by: Alethea Rene MD on 01/10/2025 11:39:28
--- OUTSIDE RECORDS SUMMARY | 2025-01-10 09:37 | XMS_ITS | Encounter Summary ---
Author Organization [facility] Address [address] [place] [address] Care Team Providers Care Program Manager Slp Name Role Phone Liyah Estrada MD Primary Care Prov ider Encounter Details Date Type Department Care Team (Late st Contact Info) Description 12/17/2024 Results Follow-Up Adult Medicine [facility] [address] [place] [address] Liyah Estrada MD [address] [place], [place] Social History Tobacco Use Types Packs/Day Years Used Date Smoking Tobacco: Never Smokeless Tobacco: Never Alcohol Use Standard Drinks/Week Comments No 0 (1 standard drink = 0.6 oz pur e alcohol) Housing Instability Answer Date Recorde d Are you worried that in the next 2 months you may not have stable housing? No 12/16/2024 Food Access & Nutrition Answer Date Rec orded Do you have access to a vari ety of food including fruits and vegetables? Yes 12/16/2024 Access to Healthcare Answer Date Record ed Within the last 3 months, ho w many times did you visit the emergency department for your medical care? 0 12/16/2024 Health Literacy Answer Date Recorded How often do you need to hav e someone help you when you read instructions, pamphlets, or other written material from your doctor or pharmacy? Never 12/16/2024 Caregiver: How often do you need to have someone help you when you read instructions, pamphlets, or other written material from your doctor or pharmacy? Not on file 12/16/2024 Financial Risk Answer Date Recorded How hard is it for you to pa y for the very basics like food, housing, medical care, and air conditioning / heating? Not very hard 12/16/2024 Transportation Answer Date Recorded Has the lack of transportati on kept you from meetings, work, or from getting things needed for daily living? No Has the lack of transportati on kept you from medical appointments or from getting medications? No 12/16/2024 Social Isolation Answer Date Recorded How often do you feel lonely or isolated from th ose around you? Never 12/16/2024 Food Risk Answer Date Recorded Within the past 12 months we worried whether our food would run out before we got money to buy more. Never true 12/16/2024 Within the past 12 months th e food we bought just didn't last and we didn't have money to get more. Never true 12/16/2024 Dependent Care Answer Date Recorded Do you need help finding or paying for care for your loved ones. For example, child development specialist or elderly care for an older adult? No 12/16/2024 Education Answer Date Recorded Do you think completing more education or training, like finishing a GED, going to college, or learning a trade, would be helpful for you? No 12/16/2024 Employment and Income Answer Date Recor ded During the last four weeks, have you been actively looking for work? No 12/16/2024 Living Situation Answer Date Recorded What is your living situation? Unrecognized valu e 12/16/2024 Interpersonal Safety Answer Date Record ed Physical Abuse Unrecognized value 11/22/2024 Verbal Abuse Unrecognized value 11/22/2024 Comments No Sex and Gender Information Value Date Recorded Sex Assigned at Not on file Legal Sex Female 12:11 PM EST Gender Identity Not on file Sexual Orientation Not on file documented as of this encounter Plan of Treatment Upcoming Encounters Date Type Department Care Team (Late st Contact Info) Description 01/17/2025 1:30 PM EST Office Visit Adult Medicine [facility] [address] [place] [address] Steffi Aden PA [address] [place], [place] 03/23/2025 8:00 AM EST Office Visit Gastroenterology - [address] [phone] Santiago Mcclendon MD [address] [address] 09/12/2025 7:30 AM EDT Office Visit Adult Medicine [facility] [address] [place], [place] [phone] Liyah Estrada MD [address] [place] [address] documented as of this encounter Goals Goal Patient Goal Type Associated Problems Recent Progress Patient-Stated? Author Autogenerat ed Goal Care Plan Autogenerated Problem Antnoella Shaw documented as of this encounter Visit Diagnoses Not on filedocumented in this encounter Additional Health Concerns Active Problems Noted Date Diagnosed Date Autogenerated Problem 11/15/2024 Assessment Noted Time PHQ-9 Depression Total Score: 1 12/17/19 25 1:27 PM EDT documented as of this encounter Care Teams Program Manager Slp Relationship Specialty Start Date End Date Liyah Estrada MD [address] [place] [address] PCP - General Internal Medicine 12/04/21 documented as of this encounter
--- OUTSIDE RECORDS SUMMARY | 2025-01-10 09:37 | XMS_ITS | Clinical Summary ---
Author Organization [facility] Address [address] [facility] [address] [place] [address] Phone Care Team Providers Care Experience Design Director Name Role Phone Cindy Maddox MD Primary Care Provider [phone] Allergies Active Allergy Reactions Criticality Noted Date [...] benign. Planning to establish care with our GENERAL [employer]. Mild intermittent asthma 07/21/2015 Lumbar disc prolapse with radiculopathy 09/07/2014 11/29/2020 Overview (11/29/2020): L5 disc herniation Lumbago with sciatica 09/06/20142020 History of polyp of colon 11/15/2013 Overview (11/29/2020): Two small T.A. Polyps seen on colonoscopy 2013. Repeat colonoscopy in 5 years. Metabolic dysfunction-associ ated steatotic liver disease 11/15/2013 11/29/2020 Migraine 09/13/2013 11/29/2020 Hyperlipidemia 05/20/2013 11/29/2020 Depressive disorder 03/30/2012 11/30/19 Gastroesophageal reflux disease 03/30/2012 11/29/2020 Immunizations Immunization [...] this topic Insurance [employer] Care Teams Experience Design Director Relationship Specialty Start Date End Date Cindy Maddox MD PCP - General Internal Medicine 11/29/20
--- OUTSIDE RECORDS SUMMARY | 2025-01-10 09:37 | XMS_ITS | Clinical Summary ---
Author Organization [address] Address [address] [place] [address] Phone Care Team Providers Care Sand Drier Name Role Phone Liyah Estrada MD Primary Care Prov ider Allergies Active Allergy Reactions Criticality Noted Date Comments Andrea Inhibitors Other 11/29/2020 Nitrofurantoin Monohyd/M-Cryst Headache 10/28/2022 Difficulty breathing Other Runny nose 06/16/2017 Seasonal Allergies. Medications potassium chloride 20 mEq tablet extended [...] to affected area twice daily. 2 Active butalbital-andrea taminophen-caf feine (FIORICET, ESGIC) 50-325-40 mg per tablet Take 1 tablet by mouth 2 times daily as needed for Pain for up to 10 days. 1 Active erenumab-aooe (Aimovig Autoinjector) 140 mg/mL injection INJECT 1 ML (140MG) ONCE A MONTH 10/19/201 9 Active cholecalcifero l (VITAMIN D-3) 50 mcg (2,000 unit) capsule [...] EVERY MORNING 90 tablet 3 5 Active polyethylene glycol (Golytely) 236-22.74-6.74 -5.86 gram solution Take 4L by mouth once for one dose. May substitue any PEG. Starting at 2PM the day before your procedure drink 1 8oz glasses at your own pace until you complete half of the gallon. Finish 2nd half of the gallon at 8PM. 4000 mL 5 Active bisacodyL (DULCOLAX) 5 mg EC tablet Take 2 tablets by mouth right before beginning bowel prep. See instructions provided by the office 2 tablet 5 Active Wegovy 0.25 mg/0.5 mL injection pen Inject 0.25 mg under the skin every 7 (seven) days. 2 mL 5 Active tamsulosin (FLOMAX) 0.4 mg 24 hr capsule Take 1 capsule (0.4 mg total) by mouth 1 (one) time each day. Capsules should be taken 30 minutes following the same meal each day. 30 each 5 Active amoxicillin-cl avulanate (AUGMENTIN) 875-125 mg per tablet Take 1 tablet by mouth 2 (two) times a day for 7 days. 14 tablet 11/03/202 5 12/28/19 25 Active Problems Problem Noted Date Diagnosed Date Class 2 severe obesity due t o excess calories with serious comorbidity in adult 01/21/2024 Stage 3a chronic kidney disease (CMS/HCC V24, CM S/HCC V28) 04/21/2020 Overview (12/16/2024): On 2 determinations Oct 2018 and Mar 2020; repeat test Apr 2020 improved. Pending rpt for Anxiety 04/06/2020 Vitamin D deficiency 04/06/2020 Postmenopausal bleeding 07/25/2016 Overview (01/21/2024): Dr. Tran Aldana - and EMBx, benign. Planning to establish care with our [facility]. Mild intermittent asthma without complication Lumbar disc [...] Encounters Date Type Department Care Team Description 12/20/2024 9:54 AM EST - 12/20/2024 11:59 PM EST Hospital Encounter CT Scan - [facility] [address] [place] [phone] Kidney stones; Abdominal bloating; Foul smelling urine; Class 2 severe obesity due to excess calories with serious comorbidity and body mass index (BMI) of 39.0 to 39.9 in adult; Elevated ferritin; Generalized abdominal pain Discharge Disposition: Home or Self Care 12/20/2024 Results Follow-Up [address] [phone] Apolinar Cerda MD 12/20/[address] [phone] Apolinar Cerda MD 12/17/2024 Results Follow-Up [address] [phone] Liyah Estrada MD 12/16/2024 2:10 PM EDT Lab Draw [address] Foul smelling urine; Generalized abdominal pain; Metabolic dysfunction-associa ildefonso steatotic liver disease (MASLD); Elevated glucose 12/16/2024 1:30 PM EDT Office Visit [address] [phone] Apolinar Cerda MD Acute bilateral low back pain without sciatica (Primary Dx); Kidney stones; Abdominal bloating; Foul smelling urine; Class 2 severe obesity due to excess calories with serious comorbidity and body mass index (BMI) of 39.0 to 39.9 in adult; Elevated ferritin; Metabolic dysfunction-associa ildefonso steatotic liver disease (MASLD); Generalized abdominal pain 12/16/[address] [phone] Liyah Estrada MD 11/23/2024 Results Follow-Up Gastroenterology - 299 [facility] [address] [phone] Santiago Mcclendon MD 11/22/2024 1:41 PM EDT Anesthesia Event [facility] [address] [place] [phone] Shalonda Massey MD 11/22/2024 12:32 PM EDT - 11/22/2024 11:59 PM EDT Hospital Encounter [facility] [address] [place] [phone] Santiago Mcclendon MD Decandio, Laura, CRNA Kriz, Petra, MD Colon cancer screening Discharge Disposition: Home or Self Care from Last 3 Months Immunizations Immunization Administration Dates Next Due Moderna (age 6mo & older) Bi valent, COVID-19, 0.5 mL or 0.25 mL dosage 04/12/2022 PPD Test 01/14/2018 Tdap Tetanus diptheria acell ular pertussis (Boostrix; Adacel) 7yo and older 08/26/2012 Zoster recombinant (Shingrix) 19yo and older ,09/29/2023 Surgical History Surgery Date Site/Laterality Comments CHOLECYSTECTOMY 2002 PROCEDURE: HISTORICAL CHOLECYSTECTOMY ESOPHAGOGASTRODUODENOSCOPY 09/07/13 PROCEDURE: UT ESOPHAGOGASTRODUODENOSCOPY TRANSORAL DIAGNOSTIC; COMMENT: normal COLONOSCOPY 09/07/13 [...] wi th radiculopathy; COMMENT: L5 disc herniation Asthma Heart palpitations Sleep apnea Family History Medical History Relation Name Comments [...] care for your loved ones. For example, director of early childhood or elderly care for an older adult? [...] Sign Reading Time Taken Comments Blood Pressure 142/79 12/16/2024 1:28 PM EDT Pulse 82 12/16/2024 1:28 PM EDT Temperature 36.6 C (97.9 F) 12/16/2024 1:28 PM EDT Respiratory Rate 16 12/16/2024 1:28 PM EDT Oxygen Saturation 99% 12/16/2024 1:28 PM EDT Inhaled Oxygen Concentration - - Weight 107 kg (236 lb 6.4 oz) 12/16/2024 1:28 PM EDT Height 165.1 cm (5' 5 ) 12/16/2024 1:28 PM EDT Body Mass Index 39.34 12/16/2024 1:28 PM EDT Plan of Treatment Upcoming Encounters Date Type Department Care Team (Late st Contact Info) Description 01/17/2025 1:30 PM EST Office Visit Adult Medicine [address] [place] [phone] Steffi Aden PA [address] [place] [phone] 03/23/2025 8:00 AM EST Office Visit Gastroenterology - [address] [place] [phone] Santiago Mcclendon MD [address] [place] [phone] 09/12/2025 7:30 AM EDT Office Visit Adult Medicine [address] [phone] Liyah Estrada MD [address] [place] [phone] Health Maintenance Due Date Last Done Comments RSV Immunization Adult Patients (1 - Risk 50-74 years 1-dose series) 06/11/2013 COVID-19 Vaccine ( season) 2024 04/12/2022, 02/13/2021, 06/10/2020, Additional history exists Influenza Vaccine (#1) 2024 Breast Cancer Screening 10/26/2025 10/27/19 24, 10/27/2023, 07/28/2021, Additional history exists Hypertension/CHF/CAD Annual BMP Blood Test 12/16/2025 12/16/2024, 10/11/2024, 09/29/2023, Additional history exists Social Influencers of Health Screening 12/16/2025 12/16/2024 Cervical Cancer Screening: HPV 01/17/2027 01/17/2022 Cholesterol Screening (Lipid Panel) 10/11/2029 10/11/2024, 09/29/2023, 09/29/2023 Colorectal Cancer Screening: Colonoscopy 11/22/2029 11/22/2024, 04/12/2019 DTaP,Tdap,and Td Vaccines Discontinued 08/26/2012 Hepatitis C Screening Completed 07/05/2013 Zoster Vaccines Completed 01/16/2024, 09/29/2023 HIV Screening Completed 10/11/2024 Depression Screening Completed 12/16/2024 HIB Vaccines Aged Out No longer eligi [...] on patient's age to complete this topic Goals Goal Patient Goal Type Associated Problems Recent Progress Patient-Stated? Author Autogenerat ed Goal Care Plan Autogenerated Problem No Antonella Benton Procedures Procedure Name Priority Date/Time Associated Diagnosis Comments CT ABDOMEN PELVIS W CONTRAST Routine 12/20/2024 10:05 AM EST Kidney stones Abdominal bloating Foul smelling urine Class 2 severe obesity due to excess calories with serious comorbidity and body mass index (BMI) of 39.0 to 39.9 in adult Elevated ferritin Generalized abdominal pain CBC WITH AUTO DIFFERENTIAL Routine 12/16/2024 2:19 PM EDT Generalized abdominal pain STARKS URINE CULTURE TUBE Routine 12/16/2024 2:19 PM EDT Foul smelling urine URINALYSIS WITH REFLEX MICROSCOPIC AND CULTURE Routine 12/16/2024 2:19 PM EDT Foul smelling urine HEMOGLOBIN A1C Routine 12/16/2024 2:19 PM EDT Elevated glucose COMPREHENSIVE METABOLIC PANEL Routine 12/16/2024 2:19 PM EDT Generalized abdominal pain LIVER FIBROSIS, FIBROTEST-ACTITEST PANEL Routine 12/16/2024 2:19 PM EDT Metabolic dysfunction-associate d steatotic liver disease (MASLD) CBC AND DIFFERENTIAL Routine 12/16/2024 2:19 PM EDT Generalized abdominal pain URINALYSIS WITH REFLEX MICROSCOPIC AND CULTURE Routine 12/16/2024 2:19 PM EDT Foul smelling urine CULTURE URINE Routine 12/16/2024 2:19 PM EDT Foul smelling urine COLONOSCOPY Routine 11/22/2024 1:58 PM EDT Colon cancer screening TISSUE EXAM Routine 11/22/2024 1:54 PM EDT Colon cancer screening ..LAB TO CALL RESULTS Routine 11/04/2024 3:23 PM EDT CBC WITH AUTO DIFFERENTIAL Routine 10/11/2024 10:58 [...] neoplasm of breast HM HPV Routine 01/17/2022 HEPATITIS C SCREENING Routine 07/05/2013 from Last 3 Months or Most Recently Relevant to Health Maintenance Results * CT Abdomen Pelvis w Contrast (12/20/2024 10:05 AM EST) Anatomical Region Laterality Modality Body Computed Tomogra phy 12/20/2024 11:4 2 AM EST Impressions 12/20/2024 12:11 PM EST Hepatomegaly and hepatic steatosis. Nonobstructing left renal calculus. Appendicolith. Status post cholecystectomy. No acute abdominopelvic pathology. -------- FINAL REPORT -------- Dictated By: Michelle Horner Dictated Date: 12/20/2024 11:42 ET Assigned Physician: Michelle Horner Reviewed and Electronically Signed By: Michelle Horner Signed Date: 12/20/2024 12:11 ET Workstation ID: [id number] Transcribed By: Self Edit Transcribed Date: 12/20/2024 11:42 ET Narrative 12/20/2024 12:[address] ABDOMEN AND PELVIS WITH CONTRAST HISTORY: Mid abdominal pain with bloating. History of prior renal stones as well. PROCEDURE: Multiple axial images are obtained through the and pelvis. Oral and intravenous contrast was administered. The patient received 100 cc Isovue-370 IV. PRIOR STUDIES: CT abdomen pelvis 03/25/2017. RADIATION DOSAGE: ctdi 22.78 mGy. FINDINGS: Liver: There is decreased attenuation of the liver consistent with diffuse fatty infiltration. The liver is enlarged, unchanged from the previous study. Pancreas: There is mild fatty infiltration of the pancreas Kidneys: Unremarkable right kidney. There is a 0.4 x 0.5 x 0.8 cm calculus in the lower pole of the left kidney. Adrenal glands: Unremarkable. Spleen: Unremarkable Gallbladder: Surgically absent. Appendix: There is an appendicolith noted. GI tract: Unremarkable. Aorta: Normal in caliber. Bladder: Underdistended. Reproductive organs: The uterus and ovaries are unremarkable. Abdominal wall: No ventral hernia. Lymph nodes: Prominent portacaval lymph nodes are again noted. The largest measures 1.2 cm in transverse diameter, unchanged. Bones: There are bridging osteophytes of the visualized lower thoracic spine. There is disc space narrowing and endplate spurring at L5-S1.. Lung bases: Clear. Procedure Note Michelle Horner MD - 12/20/2024 CT ABDOMEN AND PELVIS WITH CONTRAST HISTORY: Mid abdominal pain with bloating. History of prior renal stonesas well. PROCEDURE: Multiple axial images are obtained through the and pelvis. Oraland intravenous contrast was administered. The patient received 100 ccIsovue-370 IV. PRIOR STUDIES: CT abdomen pelvis 03/25/2017. RADIATION DOSAGE: ctdi 22.78 mGy. FINDINGS: Liver: There is decreased attenuation of the liver consistent with diffusefatty infiltration. The liver is enlarged, unchanged from the previousstudy. Pancreas: There is mild fatty infiltration of the pancreas Kidneys: Unremarkable right kidney. There is a 0.4 x 0.5 x 0.8 cm calculusin the lower pole of the left kidney. Adrenal glands: Unremarkable. Spleen: Unremarkable Gallbladder: Surgically absent. Appendix: There is an appendicolith noted. GI tract: Unremarkable. Aorta: Normal in caliber. Bladder: Underdistended. Reproductive organs: The uterus and ovaries are unremarkable. Abdominal wall: No ventral hernia. Lymph nodes: Prominent portacaval lymph nodes are again noted. The largestmeasures 1.2 cm in transverse diameter, unchanged. Bones: There are bridging osteophytes of the visualized lower thoracicspine. There is disc space narrowing and endplate spurring at L5-S1.. Lung bases: Clear. IMPRESSION: Hepatomegaly and hepatic steatosis. Nonobstructing left renal calculus. Appendicolith. Status post cholecystectomy. No acute abdominopelvic pathology. -------- FINAL REPORT -------- Dictated By: Michelle Horner Dictated Date: 12/20/2024 11:42 ET Assigned Physician: Michelle Horner Reviewed and Electronically Signed By: Michelle Horner Signed Date: 12/20/2024 12:11 ET Workstation ID: [id number] Transcribed By: Self Edit Transcribed Date: 12/20/2024 11:42 ET Apolinar Cerda MD IMG CT PROCEDURES Ailyn l Result * (ABNORMAL) Urinalysis with reflex microscopic and culture (12/16/2024 2:19 PM EDT) Pathologist [facility] Specific [place] Urine 1.006 1.003 - 1.030 LAB URINALYSIS - AUTOMATED METHOD 12/16/2024 4:44 PM [facility] pH, Urine 6.0 5.0 - 8.0 pH LAB URINALYSIS - AUTOMATED METHOD 12/16/2024 4:44 PM [facility] Leukocytes, Urine Trace(A) Negative LAB URINALYSIS - AUTOMATED METHOD 12/16/2024 4:44 PM [facility] Nitrite, Urine Negative Negative LAB URINALYSIS - AUTOMATED METHOD 12/16/2024 4:44 PM [facility] Protein, Urine Negative <=Trace mg/dL LAB URINALYSIS - AUTOMATED METHOD 12/16/2024 4:44 PM [facility] Glucose, Urine Negative Negative mg/dL LAB URINALYSIS - AUTOMATED METHOD 12/16/2024 4:44 PM [facility] Ketones, Urine Negative Negative mg/dL LAB URINALYSIS - AUTOMATED METHOD 12/16/2024 4:44 PM [facility] Urobilinogen, Urine 0.2 0.2 - 1.0 mg/dL LAB URINALYSIS - AUTOMATED METHOD 12/16/2024 4:44 PM [facility] Bilirubin, Urine Negative Negative LAB URINALYSIS - AUTOMATED METHOD 12/16/2024 4:44 PM [facility] Blood, Urine Negative Negative LAB URINALYSIS - AUTOMATED METHOD 12/16/2024 4:44 PM [facility] RBC, Urine 0.3 0 - 4 /HPF LAB URINALYSIS - AUTOMATED METHOD 12/16/2024 4:44 PM [facility] WBC, Urine 3.0 0 - 4 /HPF LAB URINALYSIS - AUTOMATED METHOD 12/16/2024 4:44 PM EDT [facility] Squamous Epithelial, Urine 5 0 - 60 /LPF LAB URINALYSIS - AUTOMATED METHOD 12/16/2024 4:44 PM EDT [facility] Bacteria, Urine Negative Negative /HPF LAB URINALYSIS - AUTOMATED METHOD 12/16/2024 4:44 PM EDT [facility] Hyaline Casts, Urine 0.0 0 - 3 /LPF LAB URINALYSIS - AUTOMATED METHOD 12/16/2024 4:44 PM EDT [facility] Urine Urine specimen obtained by clean catch procedure / Unknown Non-blood Collection / Unknown 12/16/2024 2:19 PM EDT 12/16/2024 2:19 PM EDT us Apolinar Cerda MD LAB URINE ORDERABLES F inal Result Performing Organization Address City/[facility]/ZIP Co de Phone Number [facility] [address] [place] [address], [place] [phone] * Starks urine culture tube (12/16/2024 2:19 PM EDT) Pathologist [facility] Extra Tube Hold for add-ons. 12/16/2024 5:01 PM EDT [facility] Comment:Auto resulted. Urine Urine specimen obtained by clean catch procedure / Unknown Non-blood Collection / Unknown 12/16/2024 2:19 PM EDT 12/16/2024 2:19 PM EDT us Apolinar Cerda MD LAB URINE ORDERABLES F inal Result Performing Organization Address City/[facility]/ZIP Co de Phone Number [facility] [address] [place] [address], [place] [phone] * (ABNORMAL) Liver fibrosis, fibrotest-actitest panel (12/16/2024 2:19 PM EDT) Fibrosis Score 0.28 12/28/2024 1:38 PM EST [facility] Fibrosis Stage F1 12/28/2024 1:38 PM EST [facility] Fibrosis Interpretation SEE NOTE 12/28/2024 1:38 PM EST [facility] Comment: minimal fibrosis Fibro Test Score (f) Metavir Score f>=0 and f<=0.21 : F0 (no fibrosis) f>0.21 and f<=0.27 : F0-F1 (no fibrosis) f>0.27 and f<=0.31 : F1 (minimal fibrosis) f>0.31 and f<=0.48 : F1-F2 (minimal fibrosis) f>0.48 and f<=0.58 : F2 (moderate fibrosis) f>0.58 and f<=0.72 : F3 (advanced fibrosis) f>0.72 and f<=0.74 : F3-F4 (advanced fibrosis) f>0.74 and f<=1.00 : F4 (severe fibrosis) Necroinflammat Activity Score 0.39 12/28/2024 1:38 PM EST [facility] Necroinflammat Activity Grade A1-A2 12/28/2024 1:38 PM EST [facility] Necroinflammat Interpretation SEE NOTE 12/28/2024 1:38 PM EST [facility] Comment: minimal activity ActiTest Score (a) Metavir Score a>=0 and a<=0.17 : A0 (no activity) a>0.17 and a<=0.29 : A0-A1 (no activity) a>0.29 and a<=0.36 : A1 (minimal activity) a>0.36 and a<=0.52 : A1-A2 (minimal activity) a>0.52 and a<=0.60 : A2 (significant activity) a>0.60 and a<=0.62 : A2-A3 (significant activity) a>0.62 and a<=1.00 : A3 (severe activity) Bilirubin Total 0.3 0.2 - 1.2 mg/dL 12/28/2024 1:38 PM EST [facility] Gamma Glutamyl Transferase (GGT) 43 3 - 65 U/L 12/28/2024 1:38 PM EST [facility] Alanine Aminotransferase (ALT) 66(H) 6 - 29 U/L 12/28/2024 1:38 PM EST [facility] Exbjq-[id number] n 338(H) 106 - 279 mg/dL 12/28/2024 1:38 PM EST [facility] Haptoglobin 211 43 - 212 mg/dL 12/28/2024 1:38 PM EST [facility] Apolipoprotein A1 166 101 - 198 mg/dL 12/28/2024 1:38 PM EST [facility] Reference ID [id number] 12/28/2024 1:38 PM EST [facility] Footnote SEE NOTE 12/28/2024 1:38 PM EST [facility] Comment: The reliability of results is dependent on compliance with the preanalytical and analytical conditions recommended by [employer]. The tests have to be deferred for: acute hemolysis, acute hepatitis, acute inflammation, extra hepatic cholestasis. The advice of a specialist should be sought for interpretation in chronic hemolysis and Gilbert's syndrome. The test interpretation is not validated in liver transplant patients. Isolated extreme values of one of the components should lead to caution in interpreting the results. In case of discordance between a biopsy result and a test, it is recommended to seek the advice of a specialist. The causes of these discordances could be due to a flaw of the test or to a flaw in the biopsy: i.e. a liver biopsy has a 33% variability rate for one fibrosis stage. FibroTest is interpretable for chronic hepatitis B and C, alcoholic and non alcoholic steatosis. ActiTest is interpretable for chronic hepatitis B and C. The performance characteristics have been determined by [facility]. It has not been cleared or approved by the U.S. Food and Drug Administration. Performance characteristics refer to the analytical performance of the test. [employer], [employer], the associated logo, Try[employer] and all associated [employer] chaudhary are the registered trademarks of [employer]. All third republican chaudhary - (R) and (TM) - are the property of their respective owners. (C) [id number] [employer]. All rights reserved. Test Performed at: [facility] [id number] [place] [phone] Usman Jha MD, PhD, NANCY Blood Venous blood specimen / Unknown Venipuncture / Unknown 12/16/2024 2:19 PM EDT 12/16/2024 2:19 PM EDT us Apolinar Cerda MD LAB BLOOD ORDERABLES F inal Result [address] [address] [address] * (ABNORMAL) CBC auto differential (12/16/2024 2:19 PM EDT) Only the most recent of2 resultswithin the time period is included. [facility] WBC 10.2 4.8 - 10.8 K/mcL LAB HEMETOLOGY METHOD 12/16/2024 4:38 PM EDT [facility] RBC 4.70 3.80 - 4.80 M/mcL LAB HEMETOLOGY METHOD 12/16/2024 4:38 PM EDT [facility] Hemoglobin 14.6 11.5 - 16.0 g/dL LAB HEMETOLOGY METHOD 12/16/2024 4:38 PM EDT [facility] Hematocrit 46.1 35.0 - 47.0 % LAB HEMETOLOGY METHOD 12/16/2024 4:38 PM EDT [facility] MCV 98.1(H) 79.0 - 98.0 FL LAB HEMETOLOGY METHOD 12/16/2024 4:38 PM EDT [facility] MCH 31.1 27.0 - 32.0 pcg LAB HEMETOLOGY METHOD 12/16/2024 4:38 PM EDT [facility] MCHC 31.7(L) 32.0 - 37.0 g/dL LAB HEMETOLOGY METHOD 12/16/2024 4:38 PM EDT [facility] RDW 13.2 11.0 - 15.0 % LAB HEMETOLOGY METHOD 12/16/2024 4:38 PM EDT [facility] Platelets 366 130 - 400 K/mcL LAB HEMETOLOGY METHOD 12/16/2024 4:38 PM EDT [facility] MPV 10.8 7.0 - 11.0 FL LAB HEMETOLOGY METHOD 12/16/2024 4:38 PM EDT [facility] NRBC 0.0 <1.0 % LAB HEMETOLOGY METHOD 12/16[facility]2024 4:[facility] NRBC Absolute 0.00 <0.10 K/mcL LAB HEMETOLOGY METHOD 12/16/2024 4:38 PM EDT [facility] Neutrophils Relative 50.7 % LAB HEMETOLOGY METHOD 12/16/2024 4:38 PM EDT [facility] Lymphocytes Relative 40.1 % LAB HEMETOLOGY METHOD 12/16/2024 4:38 PM [facility] Monocytes Relative 5.8 % LAB HEMETOLOGY METHOD 12/16[facility]2024 4:[facility] Eosinophils Relative 2.6 % LAB HEMETOLOGY METHOD 12/16/2024 4:38 PM [facility] Basophils Relative 0.5 % LAB HEMETOLOGY METHOD 12/16/2024 4:38 PM [facility] Immature Granulocytes Relative 0.3 % LAB HEMETOLOGY METHOD 12/16/2024 4:38 PM [facility] Neutrophils Absolute 5.17 1.50 - 7.00 K/mcL LAB HEMETOLOGY METHOD 12/16/2024 4:38 PM EDT [facility] Lymphocytes Absolute 4.09 1.00 - 5.00 K/mcL LAB HEMETOLOGY METHOD 12/16/2024 4:[facility] Monocytes Absolute 0.59 0.20 - 1.00 K/mcL LAB HEMETOLOGY METHOD 12/16/2024 4:38 [facility] Eosinophils Absolute 0.26 0.00 - 0.50 K/mcL LAB HEMETOLOGY METHOD 12/16/2024 4:38 PM EDT [facility] Basophils Absolute 0.05 0.00 - 0.20 K/[facility] LAB HEMETOLOGY METHOD 12/16/2024 4:38 PM EDT [facility] Immature Granulocytes Absolute 0.03 0.00 - 0.03 K/[facility] LAB HEMETOLOGY METHOD 12/16/2024 4:38 PM EDT [facility] Blood Venous blood specimen / Unknown Venipuncture / Unknown 12/16/2024 2:19 PM EDT 12/16/2024 2:19 PM EDT us Apolinar Cerda MD LAB BLOOD ORDERABLES F inal Result [facility] [address] [place] [address], * (ABNORMAL) Culture urine (12/16/2024 2:19 PM EDT) Culture, Urine 10,000-49,000 CFU/mL Escherichia coli(A) DOE 12/18/2024 1:11 PM EDT [facility] Urine Urine specimen obtained by clean catch procedure / Unknown Non-blood Collection / Unknown 12/16/2024 2:19 PM EDT 12/16/2024 4:44 PM EDT Narrative [facility] - 12/18/2024 1:11 PM EDT Additional colony types present in insignificant amounts. Organism Antibiotic Method Susceptibility Escherichia coli Amoxicillin/Clavulanate DOE 4 ug/ml: Susceptible Escherichia coli Ampicillin/Sulbactam DOE 16 ug/ml: Intermediate Escherichia coli Piperacillin/Tazobactam DOE <=4 ug/ml: Susceptible Escherichia coli Cefazolin (Urine) DOE 2 ug/ml: Susceptible Escherichia coli Cefoxitin DOE <=4 ug/ml: Susceptible Escherichia coli Ceftazidime DOE <=0.5 ug/ml: Susceptible Escherichia coli Ceftriaxone DOE <=0.25 ug/ml: Susceptible Escherichia coli Cefepime DOE <=0.12 ug/ml: Susceptible Escherichia coli Meropenem DOE <=0.25 ug/ml: Susceptible Escherichia coli Amikacin DOE 4 ug/ml: Susceptible Escherichia coli Gentamicin DOE <=1 ug/ml: Susceptible Escherichia coli Ciprofloxacin DOE 0.5 ug/ml: Intermediate Escherichia coli Levofloxacin DOE 1 ug/ml: Intermediate Escherichia coli Nitrofurantoin DOE <=16 ug/ml: Susceptible Escherichia coli Trimethoprim/Sulfamethoxazole DOE >=320 ug/ml: Resistant us Apolinar Cerda MD LAB MICROBIOLOGY - GEN ERAL ORDERABLES Final Result Performing Organization Address City/[facility]/ZIP Co de Phone Number [facility] [address] [place] [address], [place] [phone] * Hemoglobin A1c (12/16/2024 2:19 PM EDT) [facility] Hemoglobin A1C 6.0 <6.5 % LAB CHEMISTRY METHOD 12/16/2024 8:16 PM EDT [facility] Mean Bld Glu Estim. 126 mg/dL LAB CHEMISTRY METHOD 12/16/2024 8:16 PM EDT [facility] Blood Venous blood specimen / Unknown Venipuncture / Unknown 12/16/2024 2:19 PM EDT 12/16/2024 2:19 PM EDT Liyah Estrada MD LAB BLOOD ORDERABL ES Final Result Performing Organization Address [facility]/ZIP Co de Phone Number [facility] [address] [place] [address], [place] [phone] * (ABNORMAL) Comprehensive metabolic panel (12/16/2024 2:19 PM EDT) Only the most recent of2 resultswithin the time period is included. Pathologist [facility] Sodium 139 133 - 145 mmol/L LAB CHEMISTRY METHOD 12/16/2024 4:56 PM EDT [facility] Potassium 4.3 3.5 - 5.5 mmol/L LAB CHEMISTRY METHOD 12/16/2024 4:56 PM [facility] Chloride 107 96 - 110 mmol/L LAB CHEMISTRY METHOD 12/16/2024 4:56 PM [facility] CO2 24 21 - 32 mmol/L LAB CHEMISTRY METHOD 12/16/2024 4:56 PM [facility] Anion Gap 8 3 - 11 LAB CHEMISTRY METHOD 12/16/2024 4:56 PM [facility] Glucose 119(H) 70 - 100 mg/dL LAB CHEMISTRY METHOD 12/16/2024 4:56 PM [facility] BUN 21 5 - 25 mg/dL LAB CHEMISTRY METHOD 12/16/2024 4:56 PM [facility] Creatinine 1.02 0.50 - 1.10 mg/dL LAB CHEMISTRY METHOD 12/16/2024 4:56 PM [facility] eGFR 63 >=60 mL/min/1. 73m2 LAB CHEMISTRY METHOD 12/16/2024 4:56 PM [facility] Comment:Calculation based on the Chronic Kidney Disease Epidemiology Collaboration (CKD-EPI) equation refit without adjustment for race. BUN/Creatinine Ratio 20.6 LAB CHEMISTRY METHOD 12/16/2024 4:56 PM [facility] Calcium 9.7 8.5 - 10.5 mg/dL LAB CHEMISTRY METHOD 12/16/2024 4:56 PM [facility] AST (SGOT) 41 10 - 42 unit/L LAB CHEMISTRY METHOD 12/16/2024 4:56 PM [facility] ALT (SGPT) 94(H) 10 - 60 unit/L LAB CHEMISTRY METHOD 12/16/2024 4:56 PM [facility] Alkaline Phosphatase 119 42 - 121 unit/L LAB CHEMISTRY METHOD 12/16/2024 4:56 PM [facility] Total Protein 8.1(H) 6.0 - 8.0 g/dL LAB CHEMISTRY METHOD 12/16/2024 4:56 PM EDT [facility] Albumin 4.1 3.2 - 5.0 g/dL LAB CHEMISTRY METHOD 12/16/2024 4:56 PM EDT [facility] Total Bilirubin 0.4 0.0 - 1.4 mg/dL LAB CHEMISTRY METHOD 12/16/2024 4:56 PM EDT [facility] Blood Venous blood specimen / Unknown Venipuncture / Unknown 12/16/2024 2:19 PM EDT 12/16/2024 2:19 PM EDT us Apolinar Cerda MD LAB BLOOD ORDERABLES F inal Result [facility] [address] [place] [address], * COLONOSCOPY Anesthesia - MAC; [facility] ENDOSCOPY (11/22/2024 1:58 PM EDT) Anatomical Region Laterality Modality Other 11/22/2024 1:29 PM EDT Impressions 11/22/2024 1:59 PM EDT - One 7 mm polyp in the descending colon, removed with a cold snare. Resected and retrieved. - The examination was otherwise normal on direct and retroflexion views. Recommendation: - Await pathology results. - Repeat colonoscopy in 5 years for surveillance. Narrative 11/22/2024 1:59 PM EDT [facility] Patient Name: Luba North Procedure Date: 11/22/2024 1:29 PM Date of : 1965 Age: 59 Room: ROOM 14 Gender: Female Note Status: Finalized Attending MD: Santiago Mcclendon MD, Procedure Date No Time: 11/22/2024 Procedure: Colonoscopy Indications: High risk colon cancer surveillance: Personal history of colonic polyps Providers: Santiago Mcclendon MD Referring MD: Santiago Mcclendon MD Medicines: Propofol per Anesthesia Complications: No immediate complications. Estimated Blood Loss: Estimated blood loss: none. Procedure: Pre-Anesthesia Assessment: - ASA Grade Assessment: II - A patient with mild systemic disease. After I obtained informed consent, the scope was passed under direct vision. Throughout the procedure, the patient's blood pressure, pulse, and oxygen saturations were monitored continuously.The Colonoscope was introduced through the anus and advanced to the cecum, identified by appendiceal orifice and ileocecal valve. The colonoscopy was performed without difficulty. The patient tolerated the procedure well. The quality of the bowel preparation was good. Findings: The perianal and digital rectal examinations were normal. A 7 mm polyp was found in the descending colon. The polyp was sessile and umbilicated. The polyp was removed with a cold snare. Resection and retrieval were complete. The exam was otherwise without abnormality on direct and retroflexion views. Procedure Code(s): --- Professional --- 31931, Colonoscopy, flexible; with removal of tumor(s), polyp(s), or other lesion(s) by snare technique Diagnosis Code(s): --- Professional --- Z86.010, Personal history of colonic polyps D12.4, Benign neoplasm of descending colon CPT copyright 2020 [employer]. All rights reserved. The codes documented in this report are preliminary and upon internet sales consultant review may be revised to meet current compliance requirements. Santiago Mcclendon MD 11/22/2024 1:59:02 PM This report has been signed electronically.Santiago Mcclendon MD Number of Addenda: 0 Note Initiated On: 11/22/2024 1:29 PM Scope In: Scope Out: Endoscopy Department at [facility] - [address] [place] [phone] Procedure Note Santiago Mcclendon MD - 11/22/2024 [facility] GI Patient Name: Luba North Procedure Date: 11/22/2024 1:29 PM Date of : 1965 Age: 59 Room: ROOM 14 Gender: Female Note Status: Finalized Attending MD: Santiago Mcclendon MD, Procedure Date No Time: 11/22/2024 Procedure: Colonoscopy Indications: High risk colon cancer surveillance: Personalhistory of colonic polyps Providers: Santiago Mcclendon MD Referring MD: Santiago Mcclendon MD Medicines: Propofol per Anesthesia Complications: No immediate complications. Estimated Blood Loss: Estimated blood loss: none. Procedure: Pre-Anesthesia Assessment: - ASA Grade Assessment: II - A patient with mild systemic disease. After I obtained informed consent, the scope was passed under direct vision. Throughout theprocedure, the patient's blood pressure, pulse, and oxygen saturations were monitored continuously.The Colonoscope was introduced through the anus and advanced to the cecum, identified by appendiceal orifice and ileocecal valve. The colonoscopy was performed without difficulty. The patient tolerated the procedure well. The quality of the bowel preparation was good. Findings: The perianal and digital rectal examinations were normal. A 7 mm polyp was found in the descending colon. The polyp was sessile and umbilicated. The polyp was removed with a cold snare. Resection and retrieval were complete. The exam was otherwise without abnormality ondirect and retroflexion views. Procedure Code(s): --- Professional --- 57239, Colonoscopy, flexible; with removal of tumor(s), polyp(s), or other lesion(s) by snare technique Diagnosis Code(s): --- Professional --- Z86.010, Personal history of colonic polyps D12.4, Benign neoplasm of descending colon CPT copyright 2020 [employer]. All rights reserved. The codes documented in this report are preliminary and upon internet sales consultant reviewmay be revised to meet current compliance requirements. Santiago Mcclendon MD 11/22/2024 1:59:02 PM This report has been signed electronically.Santiago Mcclendon MD Number of Addenda: 0 Note Initiated On: 11/22/2024 1:29 PM Scope In: Scope Out: Endoscopy Department at [facility] - [address] [place] [phone] IMPRESSION: - One 7 mm polyp in the descending colon, removed with a cold snare. Resected and retrieved. - The examination was otherwise normal on directand retroflexion views. Recommendation: - Await pathology results. - Repeat colonoscopy in 5 years for surveillance. us Santiago Mcclendon MD GI~PROCEDURE ORDERABLES Fin al Result * Tissue exam (11/22/2024 1:54 PM EDT) Final Diagnosis Descending Colon, polyp: Tubular adenoma. 11/23/2024 11:38 AM EDT [facility] at 1138 EDT Gross Description A. Large Intestine, Left/Descendi ng Colon, polyp: Labeled polyp desc colon . Received in formalin are five soft, rankin-pink polypoid tissues ranging from 0.2 cm to 0.4 cm in greatest diameter, which are wrapped in paper and submitted in toto in one cassette, five pieces, multiple levels. TS 11/23/2024 11:38 AM EDT [facility] Disclaimer Unless otherwise specified, all tissue is 10% NB formalin fixed and paraffin embedded. 11/23/2024 11:38 AM EDT [facility] Tissue Descending colon structure / Unknown 11/22/2024 1:54 PM EDT 11/22/2024 2:40 PM EDT Santiago Mcclendon MD LAB PATHOLOGY ORDERABLES Fi nal Result [facility] [address] [place] [address], * Lab use only - Non-affiliated results notification (11/04/2024 3:23 PM EDT) Other Topography unknown / Unknown us [facility] Provider LAB BLOOD ORDERABLES Ailyn l Result * HIV 1,2 antibody, p24 antigen with reflex to differentiation (10/11/2024 10:58 AM EDT) HIV Combo AB/AG Negative Negative LAB CHEMISTRY METHOD 10/11/2024 5:35 PM EDT [facility] Blood Venous blood specimen / Unknown Venipuncture / Unknown 10/11/2024 10:58 AM EDT 10/11/2024 10:58 AM EDT Narrative [facility] - 10/11/2024 5:35 [...] ORDERABL ES Final Result Performing Organization Address City/[facility]/ZIP Co de Phone Number [facility] [address] [place] [address], [place] [phone] * Thyroid stimulating hormone with reflex to free t4 and free t3 (10/11/2024 10:58 AM EDT) TSH 1.70 0.40 - 4.00 mcIU/mL LAB CHEMISTRY METHOD 10/11/2024 4:55 PM EDT [facility] Blood Venous blood specimen / Unknown Venipuncture / Unknown 10/11/2024 10:58 AM EDT 10/11/2024 10:58 AM EDT us Liyah Estrada MD LAB BLOOD ORDERABL ES Final Result Performing Organization Address [facility] Co de Phone Number [facility] [address] [place] [address], [place] [phone] * (ABNORMAL) Lipid panel with reflex to direct LDL (10/11/2024 10:58 AM EDT) Cholesterol 196 0 - 200 mg/dL LAB CHEMISTRY METHOD 10/11/2024 4:19 PM EDT [facility] Triglycerides 191(H) 0 - 150 mg/dL LAB CHEMISTRY METHOD 10/11/2024 4:19 PM EDT [facility] HDL 52 >=40 mg/dL LAB CHEMISTRY METHOD 10/11/2024 4:19 PM EDT [facility] LDL Calculated 106(H) 0 - 100 mg/dL LAB CHEMISTRY METHOD 10/11/2024 4:19 PM EDT [facility] Comment:Estimated LDL Calcul ated using equation: Total cholesterol - HDL cholesterol - (Triglycerides/5) VLDL Cholesterol [place] 38.2 mg/dL LAB CHEMISTRY METHOD 10/11/2024 4:19 PM EDT [facility] Non HDL Chol. (LDL+VLDL) 144 <145 mg/dL LAB CHEMISTRY METHOD 10/11/2024 4:19 PM EDT [facility] Chol/HDL Ratio 3.8 0.0 - 4.4 LAB CHEMISTRY METHOD 10/11/2024 4:19 PM EDT [facility] Blood Venous blood specimen / Unknown Venipuncture / Unknown 10/11/2024 10:58 AM EDT 10/11/2024 10:58 AM EDT us Liyah Estrada MD LAB BLOOD ORDERABL ES Final Result [facility] [address] [place] [address], * SCREENING MAMMOGRAPHY BI 2-VIEW BREAST INC [...] Low (<15%) Steffi ESTRADA IMG XR PROCEDURES Final Result * Cervical Cancer Screening: HPV (01/17/2022) Cervical Cancer Screening: HPV Abstracted, Negative Historical Provider HEALTH MAINTENANCE Final Result * Hepatitis C Screening (07/05/2013) Hepatitis C Screening Abstracted Historical Provider HEALTH MAINTENANCE Final Result from Last 3 Months or Most Recently Relevant to Health Maintenance Additional Health Concerns Active Problems Noted Date Diagnosed Date Autogenerated Problem 11/15/2024 Insurance [facility] Care Teams Sand Drier Relationship Specialty Start Date End Date Liyah Estrada MD [address] [place] [phone] PCP - General Internal Medicine 12/04/21
--- OUTSIDE RECORDS SUMMARY | 2025-01-10 09:37 | XMS_ITS | Encounter Summary ---
Author Organization [facility] Address [address] [place] [address] Care Team Providers Care Reverberatory Furnace Operator Name Role Phone Liyah Estrada MD Primary Care Prov ider Encounter Details Date Type Department Care Team (Late st Contact Info) Description 12/20/2024 Results Follow-Up Adult Medicine [facility] [address] [place], [place] [phone] Apolinar Cerda MD [address] [place], [place] Social History Tobacco Use Types Packs/Day [...] care for your loved ones. For example, children's attendant or elderly care for an older adult? [...] 1:30 PM EST Office Visit Adult Medicine [facility] [address] [place] [address] Steffi Aden PA [address] [place], [place] 03/23/2025 8:00 AM EST Office Visit Gastroenterology - [address] [phone] Santiago Mcclendon MD [address] [address] 09/12/2025 7:30 AM EDT Office Visit Adult Medicine [facility] [address] [place], [place] [phone] Liyah Estrada MD [address] [place] [address] documented as of this encounter Goals Goal Patient Goal Type Associated Problems Recent Progress Patient-Stated? Author Autogenerat ed Goal Care Plan Autogenerated Problem Antonella Shaw documented as of this encounter Visit Diagnoses Not on filedocumented in this encounter Additional Health Concerns Active Problems Noted Date Diagnosed Date Autogenerated Problem 11/15/2024 Assessment Noted Time PHQ-9 Depression Total Score: 1 12/17/19 25 1:27 PM EDT documented as of this encounter Care Teams Reverberatory Furnace Operator Relationship Specialty Start Date End Date Liyah Estrada MD [address] [place] [address] PCP - General Internal Medicine 12/04/21 documented as of this encounter
== END 2025-01-10 08:58 | disposition home or self-care (01) ==
LOC: HO.HMGCX 08:57
PROVIDERS: PCP Internal Medicine; Visit Provider Internal Medicine
DX: R79.89 Other specified abnormal findings of blood chemistry (principal)
CPT/HCPCS: 76705

== ENCOUNTER → 2025-01-10 09:10 | Outpatient (BNV) | payer OTHER, SELFPAY | PROVIDERS: PCP Internal Medicine; Visit Provider Radiology Diagnostic Radiology | DX: R16.0 Hepatomegaly, not elsewhere classified (principal); Z90.49 Acquired absence of other specified parts of digestive tract | CPT/HCPCS: 76705 ==

== ENCOUNTER 2025-01-11 08:14 | Outpatient (AMB) | payer OTHER, SELFPAY ==
[2025-01-11 08:17] VITALS: BP 140/72; PULSE 79; BMI 39.5
--- NOTE | 2025-01-11 08:17 | A.OFFVIS_ITS ---
Vital Signs 01/11/25 08:17 Height 5 ft 5 in Weight 237 lb 3.478 oz BMI 39.5 BP 140/72 H Blood Pressure Location Lt brachial Position Sitting Pulse 79 Pulse Source Pulse Oximeter Intake Visit Reasons: 4 mth f/up r/s 12-06-24 Motor Equipment Sergeant Required: No Road Patcher: Road Patcher Present Allergies house dust mite Allergy (Mild, Verified 01/11/25 08:20) Sneezing zolmitriptan (Zomig) Adverse Reaction (Unknown, Verified 01/11/25 08:20) palpitations Medication List - Last Reconciled 01/11/25 by THA Rodriguez acetazolamide 125 mg PO BID 90 days MDD 250mg albuterol sulfate 90 mcg/actuation 2 puffs inhalation QID PRN bupropion HCl XL 300 mg PO QAM iczndvebhh-drrhyzadhnplk-iemb 50-300-40 mg (Fioricet) 1 cap PO Q4-6H PRN 90 days cholecalciferol (vitamin D3) (Vitamin D3) 2,000 DAILY cranberry fruit 400 mg PO DAILY erenumab-aooe (Aimovig Autoinjector) 140 mg subcut ONCE 90 days gabapentin 300 mg (3 x 100 mg) PO BEDTIME 90 days lorazepam 0.5 mg PO DAILY PRN losartan 50 mg PO DAILY magnesium oxide 500 mg PO DAILY omeprazole 20 mg PO DAILY potassium chloride ER 20 mEq PO DAILY pravastatin 20 mg PO DAILY triamcinolone acetonide 0.025% appl topical BID zavegepant 10 mg/actuation (Zavzpret) 1 spray intranasal ONCE 1 month MDD 10mg spray HPI HPI 4 mth f/up r/s 12-06-24: Details: Luba is a 59-year-old female with past medical history of hypertension, mild obstructive sleep apnea, migraines, chronic hypokalemia who is being evaluated for heart palpitations. She underwent a Holter monitor, echocardiogram and exercise stress test without contributing findings. She did have hypertensive response to exercise. She now presents for follow-up. Today she reports that she has not been bothered as much by heart palpitations. She did by the [employer] mobile device however has not recorded any strips. She notices more heart palpitations when her potassium is low. She takes her potassium supplement daily. No presyncope, syncope, falls. No chest discomfort at rest or with activity. No shortness of breath at rest, PND, orthopnea or edema. She does get shortness of breath with exertional activities but admits to being mostly sedentary. She had a skin reaction to the Holter monitor when it was done. is present. Takes meds as directed. Follows with Nephrology for her potassium and blood pressure. [facility] Medical History Hypokalemia Neuropathy Numbness and tingling of both feet Asthma HLD (hyperlipidemia) HTN (hypertension) Surgical History Hx of cholecystectomy Family History Brother Lung cancer Hypokalemia Mother Lymphoma Social History Alcohol intake: never Patient Tobacco Use Status: Never used Tobacco Review of Systems Const All systems reviewed & are unremarkable except as noted in HPI and below ENT Denies dizziness Card Details: palpitation Denies chest pain, Denies chest pain at rest, Denies chest pain with activity, Denies rapid heart rate, Denies pedal edema, Denies edema, Denies leg edema, Denies lightheadedness, Denies palpitations, Denies dyspnea, Denies dyspnea on exertion and Denies orthopnea Resp Denies cough, Denies dyspnea and Denies dyspnea on exertion GI Denies hematochezia and Denies change in stool character Musc Denies abnormal gait, Denies limited range of motion, Denies muscle cramps, Denies muscle weakness, Denies numbness, Denies radiating pain into limb, Denies stiffness and Denies tingling Neuro Denies abnormal gait, Denies dizziness, Denies numbness and Denies tingling Endo Denies palpitations Physical Exam Vital Signs: BMI result Body Mass Index 39.5 Const General: cooperative, healthy appearing, comfortable and no acute distress Orientation/consciousness: patient oriented x3 Neck Neck: Yes normal visual inspection Resp Effort & Inspection: normal respiratory effort Auscultation: clear to auscultation bilaterally, no rales, no rhonchi and no wheezes Cardio Rate: regular rate Rhythm: regular rhythm Heart sounds: S1 normal heart sound present, S2 normal heart sound present, no gallops, no murmurs and no rubs Skin General skin exam: no rashes or lesions noted Neuro General: patient oriented x3 Extrem General: Yes normal to inspection, No no pedal edema and No calf tenderness Psych Appearance: grossly normal Mental Status: mental status grossly normal Speech and movement: Normal speech and movement present Assessment & Plan Assessment & Plan (1) Palpitations: Code(s): R00.2 - Palpitations Category: Medical Plan: Reports of heart palpitations, most likely consistent with extrasystoles. Holter monitor worn for 24 hours showed sinus rhythm with rare supraventricular and ventricular ectopy. Echocardiogram done 08/05/2024 showed EF 55-60%, normal atria sizes, no regional wall motion abnormality. An exercise stress test 08/05/2024 with exercise 5 minutes, severe shortness of breath, isolated PVCs, no EKG changes of ischemia, max blood pressure 220/50. She tells me that that degree of exercise was beyond her normal activity. She did purchase a [employer] mobile device but has not recorded any strips of heart palpitations. Currently palpitations are less bothersome. Reviewed the reduction in caffeinated bever ages, maintain good hydration, get adequate rest. Emergency care if needed for sustained rapid palpitations. Cardiology follow-up as needed. (2) HTN (hypertension): Code(s): I10 - Essential (primary) hypertension Category: Medical Plan: Blood pressure goal less than 130/80. Blood pressure was elevated at time of stress test. Mildly elevated today. She does follow with Nephrology for hypertension. No medication changes made. Plan I discussed the patient's ongoing heart palpitations and explained they are often due to extra beats that can feel like skipping, especially if they originate from the bottom of the heart. I emphasized the importance of using the [employer] device to record any symptomatic episodes, particularly because a prior allergic reaction to adhesive prevents the use of traditional monitors. I advised the patient to bring any recorded rhythm strips for me or the primary doctor to review. We discussed lifestyle modifications, including reducing caffeine intake and ensuring adequate hydration, to help manage palpitations. I informed the patient that no changes would be made to the blood pressure medications today. I recommended as-needed follow-up in this office, with instructions to return if symptoms worsen or to review any recorded heart rhythms. Patient Instructions: - If you feel your heart skipping or jumping, use your [employer] device to make a recording of the rhythm. - You can bring the recording to your next doctor's appointment for review. - Avoid drinking too much caffeine, like multiple cups of coffee throughout the day. - Drink plenty of water to stay well hydrated. - Continue to take your potassium supplement daily as prescribed. - Follow up with your kidney specialist (dietary service aide) as planned. - Follow up here as needed and call the office if your symptoms get worse. Patient was informed and verbally consented to the use of an ambient scribe for clinic note documentation during this visit. Visit time spent on chart review, interview, assessment, orders, documentation. Coding Level of Care Code Est Pt Level 3 (24708) Complex visit Add On G2211 Diagnoses Palpitations R00.2 HTN (hypertension) I10 Time Spent (min) 24
--- OUTSIDE RECORDS SUMMARY | 2025-01-11 08:27 | XMS_ITS | Encounter Summary ---
Author Organization [facility] Address [address] [place] [address] Care Team Providers Care Talent Specialist Name Role Phone Liyah Estrada MD Primary Care Prov ider Encounter Details Date Type Department Care Team (Late st Contact Info) Description 12/20/2024 Results Follow-Up Adult Medicine [facility] [address] [place], [place] [phone] Apolinar Cerda MD [address] [place], [place] Social History Tobacco Use Types Packs/Day [...] care for your loved ones. For example, early childhood or elderly care for an [...] 1:30 PM EST Office Visit Adult Medicine [facility] [address] [place] [address] Steffi Aden PA [address] [place], [place] 03/23/2025 8:00 AM EST Office Visit Gastroenterology - [address] [phone] Santiago Mcclendon MD [address] [address] 09/12/2025 7:30 AM EDT Office Visit Adult Medicine [facility] [address] [place], [place] [phone] Liyah Estrada MD [address] [place] [address] documented as of this encounter Goals Goal [...] documented as of this encounter Care Teams Talent Specialist Relationship Specialty Start Date End Date Liyah Estrada MD [address] [place] [address] PCP - General Internal Medicine 12/04/21 documented as of this encounter
--- OUTSIDE RECORDS SUMMARY | 2025-01-11 08:27 | XMS_ITS | Clinical Summary ---
Author Organization [facility] Address [address] [facility] [address] [place] [address] Phone Care Team Providers Care Foam Tank Laminator Name Role Phone Cindy Maddox MD Primary Care Provider [phone] Allergies Active Allergy Reactions Criticality Noted Date [...] benign. Planning to establish care with our MEDIA ANALYTICS MANAGER. Mild intermittent asthma 07/21/2015 Lumbar disc [...] this topic Insurance [employer] Care Teams Foam Tank Laminator Relationship Specialty Start Date End Date Cindy Maddox MD PCP - General Internal Medicine 11/29/20
--- OUTSIDE RECORDS SUMMARY | 2025-01-11 08:27 | XMS_ITS | Encounter Summary ---
Author Organization [facility] Address [address] [place] [address] Care Team Providers Care Sewer Tapper Name Role Phone Liyah Estrada MD Primary Care Prov ider Encounter Details Date Type Department Care Team (Late st Contact Info) Description 12/17/2024 Results Follow-Up Adult Medicine [facility] [address] [place] [address] Liyah Estrada MD [address] [place], [place] Social History Tobacco Use Types Packs/Day [...] 1:30 PM EST Office Visit Adult Medicine [facility] [address] [place] [address] Steffi Aden PA [address] [place], [place] 03/23/2025 8:00 AM EST Office Visit Gastroenterology - 299 [address] [phone] Santiago Mcclendon MD [address] [address] 09/12/2025 7:30 AM EDT Office Visit Adult Medicine [facility] [address] [place], [place] [phone] Liyah Estrada MD [address] [place] [address] documented as of this encounter Goals Goal [...] documented as of this encounter Care Teams Sewer Tapper Relationship Specialty Start Date End Date Liyah Estrada MD [address] [place] [address] PCP - General Internal Medicine 12/04/21 documented as of this encounter
--- OUTSIDE RECORDS SUMMARY | 2025-01-11 08:27 | XMS_ITS | Clinical Summary ---
Author Organization [address] Address [address] [place] [address] Phone Care Team Providers Care Medical Billing Instructor Name Role Phone Liyah Estrada MD Primary [...] Postmenopausal bleeding 07/25/2016 Overview (01/21/2024): Dr. Tran [place] - and EMBx, benign. Planning to establish care with our CARRIER PACKER. Mild intermittent asthma without complication Lumbar disc [...] PM EST Hospital Encounter CT Scan - [place] [address] [place] [address] [phone] Kidney stones; Abdominal bloating; Foul smelling urine; Class 2 severe obesity due to excess calories with serious comorbidity and body mass index (BMI) of 39.0 to 39.9 in adult; Elevated ferritin; Generalized abdominal pain Discharge Disposition: Home or Self Care 12/20/2024 Results Follow-Up [address] [phone] Apolinar Cerda MD 12/20/[address] [phone] Apolinar Cerda MD 12/17/2024 Results Follow-Up [address] [phone] Liyah Estrada MD 12/16/2024 2:10 PM EDT Lab Draw [address] Foul smelling urine; Generalized abdominal pain; Metabolic dysfunction-associa ildefonso steatotic liver disease (MASLD); Elevated glucose 12/16/2024 1:30 PM EDT Office Visit [address] [phone] Apolinar Cerda MD Acute bilateral low back pain without sciatica (Primary Dx); Kidney stones; Abdominal bloating; Foul smelling urine; Class 2 severe obesity due to excess calories with serious comorbidity and body mass index (BMI) of 39.0 to 39.9 in adult; Elevated ferritin; Metabolic dysfunction-associa ildefonso steatotic liver disease (MASLD); Generalized abdominal pain 12/16/[address] [phone] Liayh Estrada MD 11/23/2024 Results Follow-Up Gastroenterology - 299 [facility] [address] [phone] Santiago Mcclendon MD 11/22/2024 1:41 PM EDT An[address] Event [facility] Endoscopy [address] [place] [phone] Shalonda Massey MD 11/22/2024 12:32 PM EDT - 11/22/2024 11:59 PM EDT Hospital Encounter [facility] Endoscopy [address] [place] [phone] Santiago Mcclendon MD Decandio, Laura, [...] 2002 PROCEDURE: HISTORICAL CHOLECYSTECTOMY ESOPHAGOGASTRODUODENOSCOPY 09/07/13 PROCEDURE: DC ESOPHAGOGASTRODUODENOSCOPY TRANSORAL DIAGNOSTIC; COMMENT: normal COLONOSCOPY 09/07/13 [...] for your loved ones. For example, child care center administrator or elderly care for an older adult? [...] 1:30 PM EST Office Visit Adult Medicine [address] [place] [phone] Steffi Aden PA [address] [place] [phone] 03/23/2025 8:00 AM EST Office Visit Gastroenterology - [address] [place] [phone] Santiago Mcclendon MD [address] [place] [phone] 09/12/2025 7:30 AM EDT Office Visit Adult Medicine [address] [phone] Liyah Estrada MD [address] [place] [phone] Health Maintenance Due Date Last Done Comments [...] Signed Date: 12/20/2024 12:11 ET Workstation ID: [id number] Transcribed By: Self Edit Transcribed Date: 12/20/2024 [...] Signed Date: 12/20/2024 12:11 ET Workstation ID: [id number] Transcribed By: Self Edit Transcribed Date: 12/20/2024 11:42 ET Apolinar Cerda MD IMG CT PROCEDURES Ailyn l Result * (ABNORMAL) Urinalysis with reflex microscopic and culture (12/16/2024 2:19 PM EDT) Pathologist [facility] Specific Bailey Urine 1.006 1.003 - 1.030 LAB URINALYSIS - AUTOMATED METHOD 12/16/2024 4:44 PM [facility] pH, Urine 6.0 5.0 - 8.0 pH LAB URINALYSIS - AUTOMATED METHOD 12/16/2024 4:44 PM [facility] Leukocytes, Urine Trace(A) Negative LAB URINALYSIS - AUTOMATED METHOD 12/16/2024 4:44 PM [facility] Nitrite, Urine Negative Negative LAB URINALYSIS - AUTOMATED METHOD 12/16/2024 4:44 PM [facility] Protein, Urine Negative <=Trace mg/dL LAB URINALYSIS - AUTOMATED METHOD 12/16/2024 4:44 PM [facility] Glucose, Urine Negative Negative mg/dL LAB URINALYSIS - AUTOMATED METHOD 12/16/2024 4:44 PM [facility] Ketones, Urine Negative Negative mg/dL LAB URINALYSIS - AUTOMATED METHOD 12/16/2024 4:44 PM [facility] Urobilinogen, Urine 0.2 0.2 - 1.0 mg/dL LAB URINALYSIS - AUTOMATED METHOD 12/16/2024 4:44 PM [facility] Bilirubin, Urine Negative Negative LAB URINALYSIS - AUTOMATED METHOD 12/16/2024 4:44 PM [facility] Blood, Urine Negative Negative LAB URINALYSIS - AUTOMATED METHOD 12/16/2024 4:44 PM [facility] RBC, Urine 0.3 0 - 4 /HPF LAB URINALYSIS - AUTOMATED METHOD 12/16/2024 4:44 PM [facility] WBC, Urine 3.0 0 - 4 /HPF LAB URINALYSIS - AUTOMATED METHOD 12/16/2024 4:44 PM EDT [facility] Squamous Epithelial, Urine 5 0 - 60 /LPF LAB URINALYSIS - AUTOMATED METHOD 12/16/2024 4:44 PM EDT [facility] Bacteria, Urine Negative Negative /HPF LAB URINALYSIS - AUTOMATED METHOD 12/16/2024 4:44 PM EDT [facility] Hyaline Casts, Urine 0.0 0 - 3 /LPF LAB URINALYSIS - AUTOMATED METHOD 12/16/2024 4:44 PM EDT [facility] Urine Urine specimen obtained by clean catch procedure / Unknown Non-blood Collection / Unknown 12/16/2024 2:19 PM EDT 12/16/2024 2:19 PM EDT us Apolinar Cerda MD LAB URINE ORDERABLES F inal Result Performing Organization Address City/[facility]/ZIP Co de Phone Number [facility] [address] [place] [address], [place] [phone] * Starks urine culture tube (12/16/2024 2:19 PM EDT) Pathologist [facility] Extra Tube Hold for add-ons. 12/16/2024 5:01 PM EDT [facility] Comment:Auto resulted. Urine Urine specimen obtained by clean catch procedure / Unknown Non-blood Collection / Unknown 12/16/2024 2:19 PM EDT 12/16/2024 2:19 PM EDT us Apolinar Cerda MD LAB URINE ORDERABLES F inal Result Performing Organization Address City/[facility]/ZIP Co de Phone Number [facility] [address] [place] [address], [place] [phone] * (ABNORMAL) Liver fibrosis, fibrotest-actitest panel (12/16/2024 [...] U/L 12/28/2024 1:38 PM EST [facility] Pcmfo-0-Fnbvrhzifcng n 338(H) 106 - 279 mg/dL 12/28/2024 1:38 PM EST [facility] Haptoglobin 211 43 - 212 mg/dL 12/28/2024 1:38 PM EST [facility] Apolipoprotein A1 166 101 - 198 mg/dL 12/28/2024 1:38 PM EST [facility] Reference ID [id number] 12/28/2024 1:38 PM EST [facility] Footnote SEE NOTE 12/28/2024 1:38 PM EST [facility] Comment: The reliability of results is dependent on compliance with the preanalytical and analytical conditions recommended by [employer]. The tests have to be deferred for: [...] The performance characteristics [facility] by [facility]. It has not been cleared or approved by the U.S. Food and Drug Administration. Performance characteristics refer to the analytical performance of the test. bMenu, [employer], the associated logo, Signdat and all associated [employer] chaudhary are the registered trademarks of [employer]. All third democrat chaudhary - (R) and (TM) - are the property of their respective owners. (C) 0802-7534 [employer]. All rights reserved. Test Performed at: [facility] [id number] [place] [phone] Usman Jha MD, PhD, NANCY Blood Venous blood specimen / Unknown Venipuncture / Unknown 12/16/2024 2:19 PM EDT 12/16/2024 2:19 PM EDT us Apolinar Cerda MD LAB BLOOD ORDERABLES F inal Result [address] [address] [address] * (ABNORMAL) CBC auto differential (12/16/2024 2:19 PM EDT) Only the most recent of2 resultswithin the time period is included. [facility] WBC 10.2 4.8 - 10.8 K/mcL LAB HEMETOLOGY METHOD 12/16/2024 4:38 PM EDT [facility] RBC 4.70 3.80 - 4.80 M/mcL LAB HEMETOLOGY METHOD 12/16/2024 4:38 PM EDT [facility] Hemoglobin 14.6 11.5 - 16.0 g/dL LAB HEMETOLOGY METHOD 12/16/2024 4:38 PM EDT [facility] Hematocrit 46.1 35.0 - 47.0 % LAB HEMETOLOGY METHOD 12/16/2024 4:38 PM EDT [facility] MCV 98.1(H) 79.0 - 98.0 FL LAB HEMETOLOGY METHOD 12/16/2024 4:38 PM EDT [facility] MCH 31.1 27.0 - 32.0 pcg LAB HEMETOLOGY METHOD 12/16/2024 4:38 PM EDT [facility] MCHC 31.7(L) 32.0 - 37.0 g/dL LAB HEMETOLOGY METHOD 12/16/2024 4:38 PM EDT [facility] RDW 13.2 11.0 - 15.0 % LAB HEMETOLOGY METHOD 12/16/2024 4:38 PM EDT [facility] Platelets 366 130 - 400 K/mcL LAB HEMETOLOGY METHOD 12/16/2024 4:38 PM EDT [facility] MPV 10.8 7.0 - 11.0 FL LAB HEMETOLOGY METHOD 12/16/2024 4:38 PM EDT [facility] NRBC 0.0 <1.0 % LAB HEMETOLOGY [facility] NR[facility] Absolute 0.00 <0.10 K/mcL LAB HEMETOLOGY METHOD 12/16/2024 4:38 PM EDT [facility] Neutrophils Relative 50.7 % LAB HEMETOLOGY METHOD 12/16/2024 4:38 PM EDT [facility] Lymphocytes Relative 40.1 % LAB HEMETOLOGY METHOD 12/16/2024 4:38 PM [facility] Monocytes Relative 5.8 % LAB HEMETOLOGY METHOD [facility]/16[facility]2024 [facility] Eosinophils Relative 2.6 % LAB HEMETOLOGY METHOD 12/16/2024 4:38 PM [facility] Basophils Relative 0.5 % LAB HEMETOLOGY METHOD 12/16/2024 4:38 PM [facility] Immature Granulocytes Relative 0.3 % LAB HEMETOLOGY METHOD 12/16/2024 4:38 PM [facility] Neutrophils Absolute 5.17 1.50 - 7.00 K/mcL LAB HEMETOLOGY METHOD 12/16/2024 4:38 PM EDT [facility] Lymphocytes Absolute 4.09 1.00 - 5.00 K/mcL LAB HEMETOLOGY METHOD 12/16[facility]24 [facility] Monocytes Absolute 0.59 0.20 - 1.00 K/mcL LAB HEMETOLOGY METHOD 12/16/2024 4[facility] Eosinophils Absolute 0.26 0.00 - 0.50 K/mcL LAB HEMETOLOGY METHOD 12/16/2024 4:38 PM EDT [facility] Basophils Absolute 0.05 0.00 - 0.20 K/[facility] LAB HEMETOLOGY METHOD 12/16/2024 4:38 PM EDT [facility] Immature Granulocytes Absolute 0.03 0.00 - 0.03 K/[facility] LAB HEMETOLOGY METHOD 12/16/2024 4:38 PM EDT [facility] Blood Venous blood specimen / Unknown Venipuncture / Unknown 12/16/2024 2:19 PM EDT 12/16/2024 2:19 PM EDT us Apolinar Cerda MD LAB BLOOD ORDERABLES F inal Result [facility] [address] [place] [address], * (ABNORMAL) Culture urine (12/16/2024 2:19 PM EDT) Culture, Urine 10,000-49,000 CFU/mL Escherichia coli(A) DOE 12/18/2024 1:11 PM EDT [facility] Urine Urine specimen obtained by clean catch procedure / Unknown Non-blood Collection / Unknown 12/16/2024 2:19 PM EDT 12/16/2024 4:44 PM EDT Narrative [facility] - 12/18/2024 1:11 PM EDT Additional [...] ERAL ORDERABLES Final Result Performing Organization Address City/[facility]/ZIP Co de Phone Number [facility] [address] [place] [address], [place] [phone] * Hemoglobin A1c (12/16/2024 2:19 PM EDT) [facility] Hemoglobin A1C 6.0 <6.5 % LAB CHEMISTRY METHOD 12/16/2024 8:16 PM EDT [facility] Mean Bld Glu Estim. 126 mg/dL LAB CHEMISTRY METHOD 12/16/2024 8:16 PM EDT [facility] Blood Venous blood specimen / Unknown Venipuncture / Unknown 12/16/2024 2:19 PM EDT 12/16/2024 2:19 PM EDT Liyah Estrada MD LAB BLOOD ORDERABL ES Final Result Performing Organization Address [facility]/ZIP Co de Phone Number [facility] [address] [place] [address], [place] [phone] * (ABNORMAL) Comprehensive metabolic panel (12/16/2024 2:19 PM EDT) Only the most recent of2 resultswithin the time period is included. Pathologist [facility] Sodium 139 133 - 145 mmol/L LAB CHEMISTRY METHOD 12/16/2024 4:56 PM EDT [facility] Potassium 4.3 3.5 - 5.5 mmol/L LAB CHEMISTRY METHOD 12/16/2024 4:56 PM [facility] Chloride 107 96 - 110 mmol/L LAB CHEMISTRY METHOD 12/16/2024 4:56 PM [facility] CO2 24 21 - 32 mmol/L LAB CHEMISTRY METHOD 12/16/2024 4:56 PM [facility] Anion Gap 8 3 - 11 LAB CHEMISTRY METHOD 12/16/2024 4:56 PM [facility] Glucose 119(H) 70 - 100 mg/dL LAB CHEMISTRY METHOD 12/16/2024 4:56 PM [facility] BUN 21 5 - 25 mg/dL LAB CHEMISTRY METHOD 12/16/2024 4:56 PM [facility] Creatinine 1.02 0.50 - 1.10 mg/dL LAB CHEMISTRY METHOD 12/16/2024 4:56 PM [facility] eGFR 63 >=60 mL/min/1. 73m2 LAB CHEMISTRY METHOD 12/16/2024 4:56 PM [facility] Comment:Calculation based on the Chronic Kidney Disease Epidemiology Collaboration (CKD-EPI) equation refit without adjustment for race. BUN/Creatinine Ratio 20.6 LAB CHEMISTRY METHOD 12/16/2024 4:56 PM [facility] Calcium 9.7 8.5 - 10.5 mg/dL LAB CHEMISTRY METHOD 12/16/2024 4:56 PM [facility] AST (SGOT) 41 10 - 42 unit/L LAB CHEMISTRY METHOD 12/16/2024 4:56 PM [facility] ALT (SGPT) 94(H) 10 - 60 unit/L LAB CHEMISTRY METHOD 12/16/2024 4:56 PM [facility] Alkaline Phosphatase 119 42 - 121 unit/L LAB CHEMISTRY METHOD 12/16/2024 4:56 PM [facility] Total Protein 8.1(H) 6.0 - 8.0 g/dL LAB CHEMISTRY METHOD 12/16/2024 4:56 PM EDT [facility] Albumin 4.1 3.2 - 5.0 g/dL LAB CHEMISTRY METHOD 12/16/2024 4:56 PM EDT [facility] Total Bilirubin 0.4 0.0 - 1.4 mg/dL LAB CHEMISTRY METHOD 12/16/2024 4:56 PM EDT [facility] Blood Venous blood specimen / Unknown Venipuncture / Unknown 12/16/2024 2:19 PM EDT 12/16/2024 2:19 PM EDT us Apolinar Cerda MD LAB BLOOD ORDERABLES F inal Result [facility] [address] [place] [address], * COLONOSCOPY Anesthesia - MAC; [facility] ENDOSCOPY (11/22/2024 1:58 PM EDT) Anatomical [...] for surveillance. Narrative 11/22/2024 1:[address] [facility] GI Patient Name: Luba North Procedure Date: [...] retroflexion views. Procedure Code(s): --- Professional --- 34260, Colonoscopy, flexible; with removal of tumor(s), polyp(s), or other lesion(s) by snare technique Diagnosis Code(s): --- Professional --- Z86.010, Personal history of colonic polyps D12.4, Benign neoplasm of descending colon CPT copyright 2020 [employer]. All rights reserved. The codes documented in this report are preliminary and upon invoice coder review may be revised to meet current compliance requirements. Santiago Mcclendon MD 11/22/2024 1:59:02 PM This report has been signed electronically.Santiago Mcclendon MD Number of Addenda: 0 Note Initiated On: 11/22/2024 1:29 PM Scope In: Scope Out: Endoscopy Department at [facility] - [address] [place] [phone] Procedure Note Santiago Mcclendon MD - 11/22/2024 [facility] GI Patient Name: Luba North Procedure Date: [...] retroflexion views. Procedure Code(s): --- Professional --- 51597, Colonoscopy, flexible; with removal of tumor(s), polyp(s), or other lesion(s) by snare technique Diagnosis Code(s): --- Professional --- Z86.010, Personal history of colonic polyps D12.4, Benign neoplasm of descending colon CPT copyright 2020 [employer]. All rights reserved. The codes documented in this report are preliminary and upon invoice coder reviewmay be revised to meet current compliance requirements. Santiago Mcclendon MD 11/22/2024 1:59:02 PM This report has been signed electronically.Santiago Mcclendon MD Number of Addenda: 0 Note Initiated On: 11/22/2024 1:29 PM Scope In: Scope Out: Endoscopy Department at [facility] - [address] [place] [phone] IMPRESSION: - One 7 mm polyp in [...] polyp: Tubular adenoma. 11/23/2024 11:38 AM EDT [facility] at 1138 EDT Gross Description A. Large Intestine, Left/Descendi ng Colon, polyp: Labeled polyp desc colon . Received in formalin are five soft, rankin-pink polypoid tissues ranging from 0.2 cm to 0.4 cm in greatest diameter, which are wrapped in paper and submitted in toto in one cassette, five pieces, multiple levels. TS 11/23/2024 11:38 AM EDT [facility] Disclaimer Unless otherwise specified, all tissue is 10% NB formalin fixed and paraffin embedded. 11/23/2024 11:38 AM EDT [facility] Tissue Descending colon structure / Unknown 11/22/2024 1:54 PM EDT 11/22/2024 2:40 PM EDT Santiago Mcclendon MD LAB PATHOLOGY ORDERABLES Fi nal Result [facility] [address] [place] [address], * Lab use only - Non-affiliated results notification (11/04/2024 3:23 PM EDT) Other Topography unknown / Unknown us [facility] Provider LAB BLOOD ORDERABLES Ailyn l Result * HIV 1,2 antibody, p24 antigen with reflex to differentiation (10/11/2024 10:58 AM EDT) HIV Combo AB/AG Negative Negative LAB CHEMISTRY METHOD 10/11/2024 5:35 PM EDT [facility] Blood Venous blood specimen / Unknown Venipuncture / Unknown 10/11/2024 10:58 AM EDT 10/11/2024 10:58 AM EDT Narrative [facility] - 10/11/2024 5:35 PM EDT [...] ORDERABL ES Final Result Performing Organization Address City/[facility]/ZIP Co de Phone Number [facility] [address] [place] [address], [place] [phone] * Thyroid stimulating hormone with reflex to free t4 and free t3 (10/11/2024 10:58 AM EDT) TSH 1.70 0.40 - 4.00 mcIU/mL LAB CHEMISTRY METHOD 10/11/2024 4:55 PM EDT [facility] Blood Venous blood specimen / Unknown Venipuncture / Unknown 10/11/2024 10:58 AM EDT 10/11/2024 10:58 AM EDT us Liyah Estrada MD LAB BLOOD ORDERABL ES Final Result Performing Organization Address [facility] Co de Phone Number [facility] [address] [place] [address], [place] [phone] * (ABNORMAL) Lipid panel with reflex to direct LDL (10/11/2024 10:58 AM EDT) Cholesterol 196 0 - 200 mg/dL LAB CHEMISTRY METHOD 10/11/2024 4:19 PM EDT [facility] Triglycerides 191(H) 0 - 150 mg/dL LAB CHEMISTRY METHOD 10/11/2024 4:19 PM EDT [facility] HDL 52 >=40 mg/dL LAB CHEMISTRY METHOD 10/11/2024 4:19 PM EDT [facility] LDL Calculated 106(H) 0 - 100 mg/dL LAB CHEMISTRY METHOD 10/11/2024 4:19 PM EDT [facility] Comment:Estimated LDL Calcul ated using equation: Total cholesterol - HDL cholesterol - (Triglycerides/5) VLDL Cholesterol Arcadio 38.2 mg/dL LAB CHEMISTRY METHOD 10/11/2024 4:19 PM EDT [facility] Non HDL Chol. (LDL+VLDL) 144 <145 mg/dL LAB CHEMISTRY METHOD 10/11/2024 4:19 PM EDT [facility] Chol/HDL Ratio 3.8 0.0 - 4.4 LAB CHEMISTRY METHOD 10/11/2024 4:19 PM EDT [facility] Blood Venous blood specimen / Unknown Venipuncture / Unknown 10/11/2024 10:58 AM EDT 10/11/2024 10:58 AM EDT us Liyah Estrada MD LAB BLOOD ORDERABL ES Final Result [facility] [address] [place] [address], * SCREENING MAMMOGRAPHY BI 2-VIEW BREAST INC [...] Date Diagnosed Date Autogenerated Problem 11/15/2024 Insurance [facility] Care Teams Medical Billing Instructor Relationship Specialty Start Date End Date Liyah Estrada MD [address] [place] [address] PCP - General Internal Medicine 12/04/21
== END 2025-01-11 08:40 | disposition home or self-care (01) ==
LOC: HO.HCS 08:15
PROVIDERS: PCP Internal Medicine; Visit Provider Nurse Practitioner Family
DX: R00.2 Palpitations (principal); I10 Essential (primary) hypertension
CPT/HCPCS: 99213

== ENCOUNTER 2025-01-24 11:25 | Outpatient (AMB) | payer OTHER, SELFPAY ==
[2025-01-24 11:49] VITALS: BP 142/82; PULSE 81; O2SAT 98; BMI 39.4
--- NOTE | 2025-01-24 11:49 | MHC.OFFVIS ---
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 Her Syd helps with history today. 12/2024 US of liver, reviewed with pt. 10/2024 MRI reviewed with pt. diffused prominence of ventriculare system and cortical sulci, consistent with atrophy. RENETTA Compliance Report 05/2024 -08/2024 reviewed with pt. Total use is 70/90 days and >4 hours is 5 hours 39min Med press [id number] Med leaks 1.0cmH20 AHI is 0.4/hr She washes her mask, rinses hoses, changes filters and fills reservoir with water. 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 She feels refreshed when using her cpap and wakes up refreshed most days, though notices chronic fatigue as the day goes on, her energy is depleted. She recently had kidney stones and thus improved water intake. Migraines are better managed, she continues to have 3-4x a month, still 7/8 severity and one week prior to her monthly Aimovig, has increases in migraine frequency and duration all day. She increases Fiorect 50/300mg po prn for this week. She also adjuncts with use of ativan 0.5mg po prn and Acetazolaminde 150mg po BID for her pressure headaches. She has photophobia/ phonophobia, dizziness, balance and gait difficulties, she bumps into gunter and has near falls, her gait is off. Her triggers are strong smells, dehydration, hunger, migraines with pressure and weather such as cold temperatures. Her vision continues to be blurry with floaters all day, she has a f/u with her opthamologist in Mar 2025. Denies Auras, diplopia, nystagmus, pain with lateral movements of her eyes, vertigo.She lies down in a darkroom, puts on the migraine cap, or uses her own ice pack which improves the symptoms and relieves the headaches. RLS symptoms, she gets muscle cramps and burning leg pain at night, which improves with use of Gabapentin 300mg po daily, though still wakes up several times due to tossing and turning, sometimes she goes back to sleep and others she works on her computer. Memory deficits will have to go back and check especially different therapies for work, has to continuously refer to treatment literature. She is forgetful at baseline, forgets where she put her phone, misses attachments on emails, and will forget many tasks at work, appointments, times to take medicines. Has difficulty with names of her co-workers, and her recall is slow. She no longer drives due to anxiety. Her mood can be irritable, diet is poor. FH - Alzheimers Dementia, denies.FH + Maternal uncle h/o liver cirrhosis. Dad 62 AL then passed, Mom 84, healthy, denies AD. [facility] Medical History Hypokalemia Neuropathy Numbness and tingling of both feet Asthma HLD (hyperlipidemia) HTN (hypertension) Surgical History Hx of cholecystectomy Family History Brother Lung cancer Hypokalemia Mother Lymphoma Social History Alcohol intake: never Patient Tobacco Use Status: Never used Tobacco Physical Exam Vital Signs: Last Vital Signs Pulse 81 01/24/25 11:49 BP 142/82 H 01/24/25 11:49 Pulse Ox 98 01/24/25 11:49 Oxygen Delivery Method Room Air 01/24/25 11:49 BMI result Body Mass Index 39.4 Const General: cooperative Nutritional Appearance: obese Orientation/consciousness: patient oriented x3 Eyes Pupils: Equal, round and reactive pupils present Neck Neck: Yes full ROM Resp Effort & Inspection: able to speak in complete sentences Neuro Other: Romberg, unable to stand with eyes closed, balance is off. Gait unable to complete tandem walk. R. foot points out on stride. General: patient oriented x3 and moves all extremities Cranial nerves: Yes Equal, round and reactive pupils present, Yes Normal accommodation reflex present, Yes Bilaterally intact EOM present, Yes Normal facial strength present, Yes Midline tongue present, Yes Ability to bilaterally rotate head present and Yes Ability to bilaterally elevate shoulders present Gait exam (Neuro): Normal gait present Motor exam (neuro): Normal motor muscle tone present throughout and Abnormal motor strength present Deep tendon reflexes (DTR's): Right triceps reflex intensity grade: 2+, Left triceps reflex intensity grade: 2+, Rt Biceps (C5, C6): 2+, Left biceps reflex intensity grade: 2+, Right brachioradialis reflex intensity grade: 2+, Left brachioradialis reflex intensity grade: 2+, Right patellar reflex intensity grade: 2+ and Left patellar reflex intensity grade: 2+ Coordination: [id number] test normal and Romberg test positive Extrem General: Yes full ROM Psych Appearance: grossly normal Speech and movement: Normal speech and movement present Affect: Sad affect present Thought process: Normal thought process present Thought content: Normal thought content present Orientation What is the (year) (season) (date) (day) (month)?: year, season, date, day and month Where are we (state) (county) (town or city) (hospital) (floor)?: state, county, town or city, hospital/clinic and floor Registration Name of 3 unrelated objects clearly and slowly, then ask patient to repeat all 3 of them. (1st repeat determines score. Make sure they can repeat all three): object 1, object 2 and object 3 Attention & Calculation (CHOOSE ONE) Spell WORLD backwards (DLROW): 5 letters Recall Ask patient to repeat the 3 items from question #3.: object 1, object 2 and object 3 Language Show patient a wristwatch & ask what it is. Repeat for pencil.: watch and pencil Ask the patient to repeat the phrase 'No ifs, ands, or buts' after you.: correct Ask the patient to 'take a piece of paper with their right hand' 'fold paper in half' 'place paper on floor': fold paper in half and place paper on floor Print the sentence 'CLOSE YOUR EYES' on a piece. If patient actually closes eyes then score.: followed written direction Give patient a blank piece of paper & ask to write a sentence. Score if it contains a noun & verb.: sentence contains subject and verb Ask patient to copy figure of intersecting pentagons exactly. Score if all 10 angles & 2 intersects are included.: all 10 angles present & 2 are intersected Score Score: 29 Results Reviewed Results Reviewed: Liver U/S The visualized pancreas is normal. Liver measures 20.9 cm in length. Diffuse increased hepatic echogenicity. There is no intrahepatic bile duct dilatation. The common duct is 6 mm in diameter. Cholecystectomy. The main portal vein is antegrade MRI 10/2024 The pituitary is normal in size. The cerebellar tonsils are normally located. There is diffuse prominence of the ventricular system and cortical sulci, consistent with atrophy. Starks/white differentiation is normal. There is no mass effect or midline shift. No intra or extra-axial fluid collections are identified. There are no foci of restricted diffusion. Normal vascular flow voids are noted in the basilar and carotid arteries. The visualized paranasal sinuses are clear. Assessment & Plan Assessment & Plan (1) Pressure in head: Comment: Migraines Code(s): R51.9 - Headache, unspecified Category: Medical (2) Chronic headaches: Code(s): R51.9 - Headache, unspecified; G89.29 - Other chronic pain Category: Medical Qualifiers: Headache type: tension-type Intractability: intractable Qualified Code(s): G44.221 - Chronic tension-type headache, intractable (3) Mild obstructive sleep apnea: Comment: AHI 12.8/hr, RI 15/hr, average O2 94% with O2 surekha 83% Code(s): G47.33 - Obstructive sleep apnea (adult) (pediatric) Category: Medical (4) Chronic migraine without aura: Code(s): G43.709 - Chronic migraine without aura, not intractable, without status migrainosus Category: Medical Qualifiers: Status migrainosus presence: without status migrainosus Intractability: intractable Qualified Code(s): G43.719 - Chronic migraine without aura, intractable, without status migrainosus (5) Neuropathy: Comment: RLS / T2DM/ pt. education re: metanex supplement B12+ B6 + Methylfolate. Code(s): G62.9 - Polyneuropathy, unspecified Category: Medical (6) Floaters in visual field of both eyes: Comment: mar 2024 opthamology f/u Code(s): H43.393 - Other vitreous opacities, bilateral Category: Medical (7) Forgetfulness: Comment: mmse Code(s): R68.89 - Other general symptoms and signs Category: Medical (8) Irritable mood: Code(s): R45.4 - Irritability and anger Category: Medical (9) Balance problem due to vestibular dysfunction: Code(s): H81.90 - Unspecified disorder of vestibular function, unspecified ear Category: Medical Qualifiers: Laterality: bilateral Qualified Code(s): H81.93 - Unspecified disorder of vestibular function, bilateral (10) Gait difficulty: Comment: near falls Code(s): R26.9 - Unspecified abnormalities of gait and mobility Category: Medical Plan Mild RENETTA, Continue using CPAP and for more than 4 hours daily. As pt is experiencing good clinical effects. Continue Vitamin D 1000units daily. MRI reviewed with pt. MMSE completed today Memory is poor, depression at baseline, and mood irritability will Balance and Gait difficulties with tandem walk. Chronic Migraines: Continue with monthly Aimovig injections. 140mg subq qmonth. Will Trial her on Topiramate 25mg po daily. Hold Acetazolamide 125mg PO BID for l. sided pressure headaches. she has Chronic hypokalemia (disorder) on their problem list, which is a contraindication for the use of acetaZOLAMIDE 125 mg tablet. use a migraine cap at onset of headache so it does not become a full blown migraine, she has had good results with Acetazolamide in the past, however is C/I due to hypokalemaia per nephrology. Aimovig wears off after 3rd week of month, prior to her next dose, and she adjuncts with Fiorect and Lorazepam 0.5mgpo prn. Migraine Acute / episodic prevention and prevention: Continue Fiorecet Discontinue Zavegepant 10mg / actuation zavzpret 1 spray intranasal, s/e nasal discharge. Continue magnesium 400mg at bedtime, may hold for loose stools or skip every other day Continue using migraine cap, ice pack, keep in freezer and put it on your head at the first sign of migraine. RLS bilateral feet numbness and pain, may use RLS cream OTC or magnalife topically, olga. Neuropathy Gabapentin 300mg po daily at bedtime, will discuss Nidra at next f/u. Ferritin is elevated, inflammation due to T2DM? Liver Cirrhosis, f/u with pcp. Start B12 1000mcg otc. Past medications tried for migraine head aches: Triptans, Rizatriptans, Sumatriptans, Ellatriptans, Naratriptan gave her palpitations, HTN.\ Amitryptyline s/e Dry mouth. BB her BP is high today and has low K followed by commercial portfolio manager/ holter monitor / and proof carrier. Azetozolamide C/I due to hypokalemia. May also look into Nervio device for PC6 pressure point stimulation or Zok for neurostimulation of Cranial nerves via pneumatic insufflation, avoid stress as it can trigger migraines, avoid missing meals, hydrate may increase water intake, walk 15min daily. F/U in 3 months Orders: Referrals Speech and Hearing Referral H81.90 - Unspecified disorder of vestibular function, unspecified ear, R26.9 - Unspecified abnormalities of gait and mobility Medications: New topiramate XR 25 mg PO DAILY 30 caps 0RF 1 month G89.29 - Other chronic pain, R51.9 - Headache, unspecified On Hold acetazolamide Hold Comment: Doctor's Order 125 mg PO BID 180 tabs 1RF migraines 90 days MDD 250mg G43.009 - Migraine without aura, not intractable, without status migrainosus Patient Instructions: Please complete the following fasting labs to rule out deficiencies. CBC/CMP/ B12/ Vit D/ TSH/ Homocysteine and MMA/ Ferritin. Sleep Hygiene provided: set a scheduled bedtime and wake time to help regulate the circadian rhythm and balance the release of pituitary hormones. Sleep in a dark room, temperatures below 68 degrees, and no devices n bed. Limit caffeinated products 6 hours prior to bed, and limit fluids 2-4 hours prior to bed. Gentle night yoga, diffusing essential oils, and playing soft music can be relaxing. Coding Level of Care Code Complex visit Add On G2211 Diagnoses Pressure in head R51.9 Chronic tension-type headache, intractable G44.221 Headache type: tension-type Intractability: intractable Mild obstructive sleep apnea G47.33 Intractable chronic migraine without aura and without status migrainosus G43.719 Status migrainosus presence: without status migrainosus Intractability: intractable Neuropathy G62.9 Floaters in visual field of both eyes H43.393 Forgetfulness R68.89 Irritable mood R45.4 Balance problem due to vestibular dysfunction of both ears H81.93 Laterality: bilateral Gait difficulty R26.9
== END 2025-01-24 13:06 | disposition home or self-care (01) ==
PROVIDERS: PCP Internal Medicine; Visit Provider Physician Assistant Medical
DX: R51.9 Headache, unspecified (principal); G44.221 Chronic tension-type headache, intractable; G47.33 Obstructive sleep apnea (adult) (pediatric); G43.719 Chronic migraine without aura, intractable, without status migrainosus; G62.9 Polyneuropathy, unspecified; H43.393 Other vitreous opacities, bilateral; R68.89 Other general symptoms and signs; R45.4 Irritability and anger; H81.93 Unspecified disorder of vestibular function, bilateral; R26.9 Unspecified abnormalities of gait and mobility
CPT/HCPCS: 99214